=== PATIENT | female | born 1930 | race Caucasian/White ===

== ENCOUNTER → 2016-11-05 | Outpatient (CLI) | payer OTHER | LOC: RAD 10:07 | PROVIDERS: ATTEND Specialist | DX: Z12.31 Encounter for screening mammogram for malignant neoplasm of breast (principal) | CPT/HCPCS: 77067 ==

== ENCOUNTER → 2017-02-16 | Outpatient (CLI) | payer OTHER ==
[2017-02-16 08:55] LABS: BILIRUBIN,URINE NEGATIVE (NEGATIVE); BLOOD/HEMOGLOBIN,URINE 2+ (NEGATIVE); GLUCOSE, URINE NEGATIVE (NEGATIVE); KETONES,URINE NEGATIVE (NEGATIVE); LEUKOCYTE ESTERASE ,URINE 3+ (NEGATIVE); NITRITES,URINE POSITIVE (NEGATIVE); PROTEIN,URINE NEGATIVE (NEGATIVE); UROBILINOGEN,URINE NORMAL (NORMAL)
[2017-02-16 08:58] LABS: BASOPHILS % (AUTO) 0.7 % (0.2-1.0); EOSINOPHILS # (AUTO) 0.2 x10^3/uL (0.0-0.2); EOSINOPHILS % (AUTO) 2.2 % (0.9-2.9); HEMATOCRIT 34.5 % (36.0-47.0); HEMOGLOBIN 11.7 g/dL (12.0-16.0); LYMPHOCYTES % (AUTO) 14.5 % (21.0-51.0); MEAN CORPUSCULAR HEMOGLOBIN 31.9 pg (27.0-34.0); MEAN CORPUSCULAR VOLUME 93.8 fL (80.0-100.0); MEAN PLATELET VOLUME 8.4 fL (7.4-11.0); MONOCYTES # (AUTO) 0.4 x10^3/uL (0.3-0.8); MONOCYTES % (AUTO) 5.5 % (0.0-13.0); NEUTROPHILS # (AUTO) 5.5 x10^3/uL (2.2-4.8); NEUTROPHILS % (AUTO) 77.1 % (42.0-75.0); PLATELET COUNT 189 X10^3/uL (150.0-450.0); RED BLOOD COUNT 3.68 X10^6/uL (3.5-5.4); RED CELL DISTRIBUTION WIDTH 13.3 % (11.6-16.5); WHITE BLOOD COUNT 7.2 X10^3/uL (3.6-10.0)
[2017-02-16 09:14] LABS: ALANINE AMINOTRANSFERASE 26 Units/L (12-78); ALBUMIN 3.7 g/dL (3.4-5.0); ALKALINE PHOSPHATASE 48 Units/L (46-116); ASPARTATE AMINO TRANSFERASE 22 Units/L (15-37); BLOOD UREA NITROGEN 25 mg/dL (7-18); CALCIUM 9.3 mg/dL (8.5-10.1); CARBON DIOXIDE 31.6 mmol/L (21-32); CHLORIDE 103 mmol/L (98-107); CHOL/HDL RATIO 4.4 (0.0-5.0); CHOLESTEROL 192 mg/dL (0-200); CREATININE 1.05 mg/dL (0.55-1.02); GLUCOSE 94 mg/dL (65-99); HDL CHOLESTEROL 44 mg/dL (40-60); SODIUM 139 mmol/L (136-145); TOTAL PROTEIN 6.8 g/dL (6.4-8.2); TRIGLYCERIDES 117 mg/dL (0-150); eGFR BLACK RACES > 60 (>60); eGFR NON BLACK RACES 53 (>60)
[2017-02-16 09:42] LABS: AMORPHOUS SEDIMENT,UR 1+ /HPF (NEGATIVE); APPEARANCE,URINE HAZY (CLEAR); BACTERIA,URINE 1+ /HPF (NEGATIVE); COLOR,URINE YELLOW (YELLOW); SQUAMOUS EPITHELIAL CELL,UR RARE /HPF (NEGATIVE)
== END ==
LOC: LAB 08:25
PROVIDERS: ATTEND Family Medicine
DX: I10 Essential (primary) hypertension (principal); Z79.899 Other long term (current) drug therapy; B96.1 Klebsiella pneumoniae [K. pneumoniae] as the cause of diseases classified elsewhere
CPT/HCPCS: 36415; 80053; 80061; 81001; 85025; 87086; 87088; 87186

== ENCOUNTER → 2017-04-19 | Outpatient (CLI) | payer OTHER ==
[2017-04-19 11:17] LABS: BILIRUBIN,URINE NEGATIVE (NEGATIVE); BLOOD/HEMOGLOBIN,URINE 2+ (NEGATIVE); GLUCOSE, URINE NEGATIVE (NEGATIVE); KETONES,URINE NEGATIVE (NEGATIVE); LEUKOCYTE ESTERASE ,URINE 2+ (NEGATIVE); NITRITES,URINE POSITIVE (NEGATIVE); PROTEIN,URINE NEGATIVE (NEGATIVE); UROBILINOGEN,URINE NORMAL (NORMAL)
[2017-04-19 11:32] LABS: APPEARANCE,URINE HAZY (CLEAR); BACTERIA,URINE 1+ /HPF (NEGATIVE); COLOR,URINE YELLOW (YELLOW); RBC,URINE 0-3 /HPF (NEGATIVE); SQUAMOUS EPITHELIAL CELL,UR RARE /HPF (NEGATIVE)
== END ==
LOC: LAB 10:50
PROVIDERS: ATTEND Family Medicine
DX: N39.0 Urinary tract infection, site not specified (principal); B96.29 Other Escherichia coli [E. coli] as the cause of diseases classified elsewhere
CPT/HCPCS: 81001; 87086; 87088; 87186

== ENCOUNTER → 2017-05-19 | Outpatient (CLI) | payer OTHER ==
[2017-05-19 11:02] LABS: BILIRUBIN,URINE NEGATIVE (NEGATIVE); BLOOD/HEMOGLOBIN,URINE 1+ (NEGATIVE); GLUCOSE, URINE NEGATIVE (NEGATIVE); KETONES,URINE NEGATIVE (NEGATIVE); LEUKOCYTE ESTERASE ,URINE 2+ (NEGATIVE); NITRITES,URINE NEGATIVE (NEGATIVE); PROTEIN,URINE 1+ (NEGATIVE); UROBILINOGEN,URINE NORMAL (NORMAL)
[2017-05-19 11:14] LABS: APPEARANCE,URINE SLIGHTLY HAZY (CLEAR); BACTERIA,URINE TRACE /HPF (NEGATIVE); COLOR,URINE YELLOW (YELLOW); HYALINE CASTS, URINE FEW /LPF (NEGATIVE); RBC,URINE 0-3 /HPF (NEGATIVE); SQUAMOUS EPITHELIAL CELL,UR RARE /HPF (NEGATIVE)
== END ==
LOC: LAB 10:33
PROVIDERS: ATTEND Family Medicine
DX: N39.0 Urinary tract infection, site not specified (principal); B95.2 Enterococcus as the cause of diseases classified elsewhere
CPT/HCPCS: 81001; 87086; 87088; 87186

== ENCOUNTER → 2017-08-31 | Outpatient (CLI) | payer OTHER ==
[2017-08-31 12:08] LABS: BILIRUBIN,URINE NEGATIVE (NEGATIVE); BLOOD/HEMOGLOBIN,URINE 3+ (NEGATIVE); GLUCOSE, URINE NEGATIVE (NEGATIVE); KETONES,URINE NEGATIVE (NEGATIVE); LEUKOCYTE ESTERASE ,URINE NEGATIVE (NEGATIVE); NITRITES,URINE NEGATIVE (NEGATIVE); PROTEIN,URINE 1+ (NEGATIVE); UROBILINOGEN,URINE NORMAL (NORMAL)
[2017-08-31 12:14] LABS: APPEARANCE,URINE CLEAR (CLEAR); BACTERIA,URINE NEGATIVE /HPF (NEGATIVE); COLOR,URINE YELLOW (YELLOW); RBC,URINE 0-5 /HPF (NEGATIVE); SQUAMOUS EPITHELIAL CELL,UR RARE /HPF (NEGATIVE)
[2017-08-31 12:15] LABS: HYALINE CASTS, URINE RARE /LPF (NEGATIVE)
== END ==
LOC: LAB 11:39
PROVIDERS: ATTEND Family Medicine
DX: N39.0 Urinary tract infection, site not specified (principal)
CPT/HCPCS: 81001; 87086

== ENCOUNTER → 2017-09-22 | Outpatient (CLI) | payer OTHER ==
[2017-09-22 10:32] LABS: BASOPHILS % (AUTO) 0.5 % (0.2-1.0); EOSINOPHILS # (AUTO) 0.1 x10^3/uL (0.0-0.2); EOSINOPHILS % (AUTO) 1.1 % (0.9-2.9); HEMOGLOBIN 13.2 g/dL (12.0-16.0); LYMPHOCYTES # (AUTO) 2.3 X10^3/uL (1.3-2.9); LYMPHOCYTES % (AUTO) 24.9 % (21.0-51.0); MEAN CORPUSCULAR HEMOGLOBIN 33.5 pg (27.0-34.0); MEAN CORPUSCULAR HGB CONC 34.9 g/dL (33.0-35.0); MEAN CORPUSCULAR VOLUME 95.9 fL (80.0-100.0); MEAN PLATELET VOLUME 8.3 fL (7.4-11.0); MONOCYTES # (AUTO) 0.8 x10^3/uL (0.3-0.8); MONOCYTES % (AUTO) 8.5 % (0.0-13.0); PLATELET COUNT 236 X10^3/uL (150.0-450.0); RED BLOOD COUNT 3.96 X10^6/uL (3.5-5.4); RED CELL DISTRIBUTION WIDTH 12.5 % (11.6-16.5); WHITE BLOOD COUNT 9.2 X10^3/uL (3.6-10.0)
[2017-09-22 10:34] LABS: BILIRUBIN,URINE NEGATIVE (NEGATIVE); BLOOD/HEMOGLOBIN,URINE 2+ (NEGATIVE); GLUCOSE, URINE NEGATIVE (NEGATIVE); KETONES,URINE NEGATIVE (NEGATIVE); LEUKOCYTE ESTERASE ,URINE NEGATIVE (NEGATIVE); NITRITES,URINE NEGATIVE (NEGATIVE); PROTEIN,URINE NEGATIVE (NEGATIVE); UROBILINOGEN,URINE NORMAL (NORMAL)
[2017-09-22 10:45] LABS: APPEARANCE,URINE CLEAR (CLEAR); BACTERIA,URINE NEGATIVE /HPF (NEGATIVE); COLOR,URINE STRAW (YELLOW); SQUAMOUS EPITHELIAL CELL,UR RARE /HPF (NEGATIVE)
[2017-09-22 10:46] LABS: ALANINE AMINOTRANSFERASE 29 Units/L (12-78); ALBUMIN 3.9 g/dL (3.4-5.0); ALKALINE PHOSPHATASE 57 Units/L (46-116); ASPARTATE AMINO TRANSFERASE 18 Units/L (15-37); BLOOD UREA NITROGEN 19 mg/dL (7-18); CALCIUM 8.7 mg/dL (8.5-10.1); CARBON DIOXIDE 26.3 mmol/L (21-32); CHLORIDE 103 mmol/L (98-107); CREATININE 1.04 mg/dL (0.55-1.02); SODIUM 139 mmol/L (136-145); TOTAL PROTEIN 7.1 g/dL (6.4-8.2); eGFR BLACK RACES > 60 (>60); eGFR NON BLACK RACES 53 (>60)
== END ==
LOC: LAB 10:12
PROVIDERS: ATTEND Family Medicine
DX: I10 Essential (primary) hypertension (principal); Z79.899 Other long term (current) drug therapy
CPT/HCPCS: 36415; 80053; 81001; 85025

== ENCOUNTER → 2017-10-06 | Outpatient (CLI) | payer OTHER ==
--- NOTE | 2017-10-06 12:21 | RAD ---
HISTORY: Right hip pain. Stiffness. No history trauma given. Study: Right hip: Two views Comparison: None Findings: The pelvic ring is intact. [id number] degenerative changes noted in the sacroiliac joints. Th e pubic rami are intact. Moderate to moderately severe lumbar spondylosis is noted. Right hip shows mild acetabular spurring. The joint space is fairly well preserved. The femoral hea d contour and femoral neck are intact. Similar findings are noted on the left. IMPRESSION: 1. Mild degenerative change in the right hip. 2. No acute bony abnormalities are identified. Reported By:
== END | disposition home or self-care (01) | DRG 556 ==
LOC: RAD 10:31
PROVIDERS: ATTEND Family Medicine
DX: M25.551 Pain in right hip (principal); M16.11 Unilateral primary osteoarthritis, right hip
CPT/HCPCS: 73501

== ENCOUNTER 2019-01-25 12:31 | Inpatient (IN) ==
[2019-01-25 13:28] LABS: BASOPHILS % (AUTO) 0.4 % (0.2-1.0); BILIRUBIN,URINE NEGATIVE (NEGATIVE); BLOOD/HEMOGLOBIN,URINE 4+ (NEGATIVE); GLUCOSE, URINE NEGATIVE (NEGATIVE); HEMOGLOBIN 11.4 g/dL (12.0-16.0); KETONES,URINE NEGATIVE (NEGATIVE); LEUKOCYTE ESTERASE ,URINE 3+ (NEGATIVE); LYMPHOCYTES # (AUTO) 0.4 X10^3/uL (1.3-2.9); LYMPHOCYTES % (AUTO) 3.7 % (21.0-51.0); MEAN CORPUSCULAR HEMOGLOBIN 31.9 pg (27.0-34.0); MEAN CORPUSCULAR HGB CONC 34.4 g/dL (33.0-35.0); MEAN CORPUSCULAR VOLUME 92.7 fL (80.0-100.0); MEAN PLATELET VOLUME 8.1 fL (7.4-11.0); MONOCYTES % (AUTO) 8.6 % (0.0-13.0); NEUTROPHILS # (AUTO) 9.8 x10^3/uL (2.2-4.8); NEUTROPHILS % (AUTO) 87.3 % (42.0-75.0); NITRITES,URINE POSITIVE (NEGATIVE); PLATELET COUNT 147 X10^3/uL (150.0-450.0); PROTEIN,URINE 3+ (NEGATIVE); RED BLOOD COUNT 3.56 X10^6/uL (3.5-5.4); RED CELL DISTRIBUTION WIDTH 13.6 % (11.6-16.5); UROBILINOGEN,URINE NORMAL (NORMAL); WHITE BLOOD COUNT 11.2 X10^3/uL (3.6-10.0)
--- NOTE | 2019-01-25 13:31 | DR.GENAD ---
HPI Time Seen Time Seen by Provider: 01/25/19 13:00 PCP Primary Care Physician: DR. DAS Complaint/Symptoms Chief Complaint Doctors Comments: An 88 y/o female brought in by her daughter for evaluation for UTI. The daughter noted her to be confused more than usual since yesterday. She has a hx. of frequent/recurrent UTI and has a prophylactic antibiotic. The daughter doesn't know the name of this. Chief Complaint:: EMS OUT TO PT WITH WEAKNESS, UPON ARRIVAL TO ER PT IS UNABLE TO GIVE ACCOUNT OF HX,, PTS DAUGHTER STATES " SHE HAS HAD A UTI FOR MONTHS AND SHE HAS BEEN ON SEVERAL MEDICATIONS AND FOR THE PAST 2 WEEKS SHE BEEN BETTER " Nurses notes reviewed Nurses Notes Review: Yes Source History Provided: Patient and Family Member Timing Onset of Chief Complaint: 01/25/19 Came on: Gradually Duration How lon Duration: Weeks Modifying Factors Worsens:: nothing Improves:: nothing Associated Signs and Symptoms Associated Signs and Symptoms: confusion PMH PMH Past Medical History: Yes Past Medical History: Hypertension Past Surgical History: No Family History History of Family Medical Conditions: No Social History Does patient currently use any type of tobacco product: No Have you used tobacco products in the last 12 months: No Type of Tobacco Use: None Does any household member use tobacco: No Alcohol Use: None Do you use any recreational Drugs:: No Lives With: Family Lives Where: Home infectious screening In the last 2 months have you had wt loss of >10#?: NO Have you had fever, night sweats or hemotysis?: No Have you traveled outside the country in the last 6 months?: No Isolation: Standard ROS Review of Systems Constitutional: No Symptoms Reported Eyes: No Symptoms Reported ENTM: No Symptoms Reported Respiratoy: No Symptoms Reported Cardiovascular: No Symptoms Reported Gastrointestinal/Abdominal: No Symptoms Reported Genitourinary: No Symptoms Reported Neurological: Other (confusion) Musculoskeletal: No Symptoms Reported Integumentary: No Symptoms Reported Hematologic/Lymphatic: No Symptoms Reported Endocrine: No Symptoms Reported Psychiatric: No Symptoms Reported PE Vital Signs Vitals: Temperature 99.0 F Pulse Rate 77 Respiratory Rate 20 Blood Pressure 147/67 O2 Sat by Pulse Oximetry 94 General Limitations: No Limitations General Appearance: Alert and In No Apparent Distress Head Head Exam: Normal Inspection, Atraumatic and Normocephalic Eyes Eye exam: Normal Appearance and EOMI ENT ENT Exam: Normal Oropharynx and Mucous Membranes Moist Neck Neck Exam: Normal Inspection, Full ROM and Trachea Midline Chest Chest Inspection: Normal Inspection and Symmetric Chest Wall Rise Respiratory Respiratory Exam: Normal Lung Sounds Bilat Cardiovascular Cardiovascular Exam: Regular Rate, Normal Rhythm, +S1 and +S2 Abdominal Exam Abdominal Exam: Normal Inspection, Normal Bowel Sounds and Soft Extremities Extremities Exam: Normal Inspection Back Back Exam: Normal Inspection Neurologic Neurological Exam: Alert and Other (oriented to self and family. Her conversation is mostly off topic. ) Psychiatric Psychiatric Exam: Normal Affect and Normal Mood Skin Skin Exam: Dry and Normal Color COURSE Reevaluation 1st: Unchanged Education/Counseling Education/Counseling: Patient, Family, Education and Counseling Educated On: Treatment, Diagnosis, Prognosis and Needs for Follow Up ROR Labs Reviewed Laboratory Results Reviewed?: Yes Result Diagrams: 01/25/19 13:19 01/25/19 13:19 Laboratory: WBC 11.2 X10^3/uL (3.6-10.0) H 01/25/19 13:19 RBC 3.56 X10^6/uL (3.5-5.4) 01/25/19 13:19 Hgb 11.4 g/dL (12.0-16.0) L 01/25/19 13:19 Hct 33.0 % (36.0-47.0) L 01/25/19 13:19 MCV 92.7 fL (80.0-100.0) 01/25/19 13:19 MCH 31.9 pg (27.0-34.0) 01/25/19 13:19 MCHC 34.4 g/dL (33.0-35.0) 01/25/19 13:19 RDW 13.6 % (11.6-16.5) 01/25/19 13:19 Plt Count 147 X10^3/uL (150.0-450.0) L 01/25/19 13:19 MPV 8.1 fL (7.4-11.0) 01/25/19 13:19 Neut % (Auto) 87.3 % (42.0-75.0) H 01/25/19 13:19 Lymph % (Auto) 3.7 % (21.0-51.0) L 01/25/19 13:19 [place] % (Auto) 8.6 % (0.0-13.0) 01/25/19 13:19 Eos % (Auto) 0.0 % (0.9-2.9) L 01/25/19 13:19 Baso % (Auto) 0.4 % (0.2-1.0) 01/25/19 13:19 Neut # (Auto) 9.8 x10^3/uL (2.2-4.8) H 01/25/19 13:19 Lymph # (Auto) 0.4 X10^3/uL (1.3-2.9) L 01/25/19 13:19 [place] # (Auto) 1.0 x10^3/uL (0.3-0.8) H 01/25/19 13:19 Eos # (Auto) 0.0 x10^3/uL (0.0-0.2) 01/25/19 13:19 Baso # (Auto) 0.0 X10^3/uL (0.0-0.1) 01/25/19 13:19 Absolute Nucleated RBC 0.0 /100WBC 01/25/19 13:19 Sodium 133 mmol/L (136-145) L 01/25/19 13:19 Corrected Sodium 133 mmol/L (136-145) L 01/25/19 13:19 Potassium 3.6 mmol/L (3.5-5.1) 01/25/19 13:19 Chloride 97 mmol/L (98-107) L 01/25/19 13:19 Carbon Dioxide 26.7 mmol/L (21-32) 01/25/19 13:19 BUN 19 mg/dL (7-18) H 01/25/19 13:19 Creatinine 0.96 mg/dL (0.55-1.02) 01/25/19 13:19 Est GFR (MDRD) Af Amer > 60 (>60) 01/25/19 13:19 Est GFR (MDRD) Non-Af 58 (>60) L 01/25/19 13:19 Glucose 115 mg/dL (65-99) H 01/25/19 13:19 Calcium 9.1 mg/dL (8.5-10.1) 01/25/19 13:19 Corrected Calcium 9.8 mg/dL (8.5-10.1) 01/25/19 13:19 Total Bilirubin 0.80 mg/dL (0.2-1.0) 01/25/19 13:19 AST 18 Units/L (15-37) 01/25/19 13:19 ALT 17 Units/L (12-78) 01/25/19 13:19 Alkaline Phosphatase 61 Units/L (46-116) 01/25/19 13:19 Total Protein 6.5 g/dL (6.4-8.2) 01/25/19 13:19 Albumin 3.1 g/dL (3.4-5.0) L 01/25/19 13:19 Globulin 3.4 g/dL (2.5-4.5) 01/25/19 13:19 Albumin/Globulin Ratio 0.9 Ratio (1.1-2.1) L 01/25/19 13:19 Specimen Type Catherized urine 01/25/19 13:19 Urine Color Yellow (YELLOW) 01/25/19 13:19 Urine Appearance Cloudy (CLEAR) 01/25/19 13:19 Urine pH 6.0 (5.0 - 8.0) 01/25/19 13:19 Ur Specific [place] 1.010 (1.000-1.030) 01/25/19 13:19 Urine Protein 3+ (NEGATIVE) 01/25/19 13:19 Urine Glucose (UA) Negative (NEGATIVE) 01/25/19 13:19 Urine Ketones Negative (NEGATIVE) 01/25/19 13:19 Urine Occult Blood 4+ (NEGATIVE) 01/25/19 13:19 Urine Nitrite Positive (NEGATIVE) 01/25/19 13:19 Urine Bilirubin Negative (NEGATIVE) 01/25/19 13:19 Urine Urobilinogen Normal (NORMAL) 01/25/19 13:19 Ur Leukocyte Esterase 3+ (NEGATIVE) 01/25/19 13:19 Urine RBC 10-20 /HPF (NONE SEEN) 01/25/19 13:19 Urine WBC Tntc /HPF (NONE SEEN) 01/25/19 13:19 Ur Squamous Epith Cells Rare /HPF (NEGATIVE) 01/25/19 13:19 Amorphous Sediment 1+ /HPF (NEGATIVE) 01/25/19 13:19 Urine Bacteria 2+ /HPF (NEGATIVE) 01/25/19 13:19 Ur Culture Indicated? Yes/culture set up 01/25/19 13:19 Opioid Opioid Risk Tool Total: 0 Total Score Risk Category: Low Risk Copyright: Joe HEARD predicting aberrant behaviors Diagnosis Discharge Problem: Cystitis, Cystitis without hematuria Altered mental status Qualifiers: Altered mental status type: delirium Qualified Code(s): R41.0 - Disorientation, unspecified Instructions Forms: Excuse From Work
[2019-01-25 13:34] LABS: AMORPHOUS SEDIMENT,UR 1+ /HPF (NEGATIVE); APPEARANCE,URINE CLOUDY (CLEAR); BACTERIA,URINE 2+ /HPF (NEGATIVE); COLOR,URINE YELLOW (YELLOW); SQUAMOUS EPITHELIAL CELL,UR RARE /HPF (NEGATIVE)
[2019-01-25 13:37] LABS: ALANINE AMINOTRANSFERASE 17 Units/L (12-78); ALBUMIN 3.1 g/dL (3.4-5.0); ALKALINE PHOSPHATASE 61 Units/L (46-116); ASPARTATE AMINO TRANSFERASE 18 Units/L (15-37); BLOOD UREA NITROGEN 19 mg/dL (7-18); CALCIUM 9.1 mg/dL (8.5-10.1); CARBON DIOXIDE 26.7 mmol/L (21-32); CHLORIDE 97 mmol/L (98-107); COR CA(FOR HYPOALB) 9.8 mg/dL (8.5-10.1); COR NA(FOR HYPERGLY) 133 mmol/L (136-145); CREATININE 0.96 mg/dL (0.55-1.02); SODIUM 133 mmol/L (136-145); TOTAL PROTEIN 6.5 g/dL (6.4-8.2); eGFR NON BLACK RACES 58 (>60)
[2019-01-25] MEDS ORDERED: ROCEPHIN VIAL 1 GRAM IVP ONE (15:00)
[2019-01-25] MEDS: ROCEPHIN VIAL 1 GRAM IVP SCH (15:02)
[2019-01-25] MEDS ORDERED: ROCEPHIN VIAL 1 GRAM ONE (15:16)
[2019-01-25] MEDS ORDERED: NS 1000 ML 1,000 ML IV SCH (16:00)
[2019-01-25] MEDS: NS 1000 ML 1,000 ML IV SCH (16:53)
[2019-01-25] MEDS: PYRIDIUM PO SCH (17:02)
[2019-01-25] MEDS ORDERED: POTASSIUM CHL 40 MEQ/NS 0.45% 500 ML IV PRN (17:12)
[2019-01-25] MEDS ORDERED: MICRO K EXTEN CAP 10 MEQ PO PRN (17:12)
[2019-01-25] MEDS ORDERED: POTASSIUM CHLORIDE LIQ 20 MEQ UDC PO PRN (17:12)
[2019-01-25] MEDS ORDERED: K-RIDER 10 MEQ/NS 100 ML 10 MEQ/100 ML BAG IV PRN (17:12)
[2019-01-25] MEDS ORDERED: KLOR-CON PO PRN (17:12)
[2019-01-25] MEDS ORDERED: POTASSIUM CHL 60 MEQ/NS 0.45% 500 ML IV PRN (17:12)
[2019-01-25] MEDS ORDERED: K-DUR TAB 20 MEQ PO PRN (17:12)
[2019-01-25] MEDS ORDERED: ZOFRAN INJ 4 MG VIAL IVP PRN (17:37)
[2019-01-25] MEDS ORDERED: ZOFRAN INJ 4 MG VIAL ONE (17:39)
--- NOTE | 2019-01-25 18:24 | RAD ---
HISTORY: Confusion, weakness Study: Single view chest Comparison: 11/23/2018 Findings: No infiltrate, effusion or pneumothorax identified. The cardiac and mediastinal contours are within normal limits. The soft tissues are unremarkable. IMPRESSION: 1. No acute cardiopulmonary abnormality. Reported By:
--- NOTE | 2019-01-25 18:30 | DR.H&P ---
H&P - History & Physical for Day of: H&P Date: 01/25/19 - Chief Complaint Chief Complaint: weakness, UTI, confusion - History of Present Illness History of Present Illness: An 88 y/o female brought in by her daughter for evaluation for UTI. The daughter noted her to be confused more than usual since yesterday. She has a hx. of frequent/recurrent UTI and has a prophylactic antibiotic. The daughter doesn't know the name of this. Wbc 11.2 on admission. Pt family reports she has had fever with this episode and N/V. - Past Medical History Past Medical History: Hypertension Additional Medical History: chronic UTIs - Past Surgical History Surgical History: Hysterectomy, Tonsillectomy - Social History Does patient currently use any type of tobacco product: No Have you used tobacco products in the last 12 months: No Type of Tobacco Use: None Does any household member use tobacco: No Alcohol Use: None - Medications Home Medications: No Known Drug Allergies Allergy (Verified 01/25/19 12:50) CONTINUE taking the following medications methenamine hippurate 1 g PO BID 01/25/19 [History] - Review of Systems Constitutional: Fever, Chills, Weakness, Malaise Eyes: No Symptoms Reported ENT: No Symptoms Reported Respiratory: No Symptoms Reported Cardiovascular: No Symptoms Reported Gastrointestinal: Nausea, Vomiting Genitourinary: Dysuria, Frequency Musculoskeletal: No Symptoms Reported Skin: No Symptoms Reported Neurological: No Symptoms Reported - Physical Exam Vital Signs: Temperature 98.3 F Pulse Rate [Right Brachial] 112 Pulse Rate 68 Respiratory Rate 20 Blood Pressure [Right Arm] 117/68 Blood Pressure [Left Arm] 154/67 Blood Pressure 135/60 O2 Sat by Pulse Oximetry 97 Oriented: Normal Eyes: Normal Ear: Normal Nose: Normal Throat: Normal Respiratory: Clear Throughout Cardiovascular: Normal : Normal Auscultation: Bowel Sounds: Normal Palpation: Normal Tenderness: Suprapubic, Mild Skin: Normal Musculoskeletal: Back:Lumbar Psychiatric: Anxiety Affect: Anxious Speech Pattern: Clear, Appropriate - Assessment/Plan (1) UTI (urinary tract infection) Status: Acute (2) Altered mental status Qualifiers: Altered mental status type: delirium Qualified Code(s): R41.0 - Disorientation, unspecified Status: Acute Plan: ADMIT, ADMISSION LABS CBC CMP UA. UC AND BC. IV ATBX THERAPY, GENTLE IV HYDRATION. VERIFY HOME MEDICATION, CXR ON ADMISSION (3) Cystitis Status: Acute - Allergies Allergies/Adverse Reactions: Allergies Allergy/AdvReac Type Severity Reaction Status Date / Time No Known Drug Allergies Allergy Verified 01/25/19 12:50
[2019-01-25 18:46] VITALS: BMI 22.8
[2019-01-25] MEDS ORDERED: RESTORIL CAP 15 MG PO PRN (20:55)
[2019-01-25] MEDS ORDERED: TYLENOL 325 MG TAB PO PRN (20:55)
[2019-01-25] MEDS: MAGNESIUM SULFATE 1 GRAM/100 mL PREMIX 1 GM/100 ML BAG IV PRN (21:27)
[2019-01-26] MEDS: MAGNESIUM SULFATE 1 GRAM/100 mL PREMIX 1 GM/100 ML BAG IV PRN (00:01)
[2019-01-26] MEDS: ROCEPHIN VIAL 1 GRAM IVP SCH ×4 (00:01→21:16)
[2019-01-26] MEDS: PYRIDIUM PO SCH ×3 (06:12→17:56)
[2019-01-26] MEDS: NS 1000 ML 1,000 ML IV SCH ×2 (06:12→21:26)
[2019-01-26 06:15] LABS: BASOPHILS % (AUTO) 0.3 % (0.2-1.0); EOSINOPHILS % (AUTO) 0.1 % (0.9-2.9); HEMATOCRIT 32.7 % (36.0-47.0); HEMOGLOBIN 11.6 g/dL (12.0-16.0); LYMPHOCYTES # (AUTO) 0.5 X10^3/uL (1.3-2.9); LYMPHOCYTES % (AUTO) 5.4 % (21.0-51.0); MEAN CORPUSCULAR HEMOGLOBIN 32.8 pg (27.0-34.0); MEAN CORPUSCULAR HGB CONC 35.4 g/dL (33.0-35.0); MEAN CORPUSCULAR VOLUME 92.6 fL (80.0-100.0); MEAN PLATELET VOLUME 8.1 fL (7.4-11.0); MONOCYTES # (AUTO) 0.8 x10^3/uL (0.3-0.8); MONOCYTES % (AUTO) 8.1 % (0.0-13.0); NEUTROPHILS # (AUTO) 8.5 x10^3/uL (2.2-4.8); NEUTROPHILS % (AUTO) 86.1 % (42.0-75.0); PLATELET COUNT 132 X10^3/uL (150.0-450.0); RED BLOOD COUNT 3.53 X10^6/uL (3.5-5.4); RED CELL DISTRIBUTION WIDTH 13.7 % (11.6-16.5); WHITE BLOOD COUNT 9.8 X10^3/uL (3.6-10.0)
[2019-01-26 06:49] LABS: ALANINE AMINOTRANSFERASE 16 Units/L (12-78); ALBUMIN 2.9 g/dL (3.4-5.0); ALKALINE PHOSPHATASE 61 Units/L (46-116); ASPARTATE AMINO TRANSFERASE 17 Units/L (15-37); BLOOD UREA NITROGEN 21 mg/dL (7-18); CALCIUM 8.7 mg/dL (8.5-10.1); CARBON DIOXIDE 27.1 mmol/L (21-32); CHLORIDE 97 mmol/L (98-107); COR CA(FOR HYPOALB) 9.6 mg/dL (8.5-10.1); CREATININE 1.23 mg/dL (0.55-1.02); MAGNESIUM 2.4 mg/dL (1.7-2.9); SODIUM 134 mmol/L (136-145); TOTAL PROTEIN 6.4 g/dL (6.4-8.2); eGFR NON BLACK RACES 44 (>60)
--- NOTE | 2019-01-26 18:07 | PCM.PROG ---
Progress Note - Progress Note for Day of Date of Exam: 01/26/19 - Subjective Subjective: 88 WF ER ADMISSION WITH CO CONFUSION PER FAMILY, WEAKNESS AND UTI. PT HAD UC COLLECTED ON AT ADMISSION WITH + GRAM -RODS. PT IS CURRENTLY ON IV ROCEPHIN. PT HAD EPISODE OF N/V X2 DURING THE NIGHT. PT DENIES ANY N/V THIS AM. PT DID TOLERATE BREAKFAST WELL AND IS MORE AWAKE AND ALERT THIS AM STATIND SHE DOES NOT REMEMBER COMING IN ER "BEING SO SICK" - Past Medical Family Social History Past Med/Fam/Surg Hx: No changes since H&P Allergies: Allergies No Known Drug Allergies Allergy (Verified 01/25/19 12:50) - Review of Systems ROS: No change since H&P - Vital Signs and I&O's Vital Signs: Temperature 98.6 F Pulse Rate [Right Brachial] 84 Pulse Rate 68 Respiratory Rate 20 Blood Pressure [Right Calf] 114/53 Blood Pressure [Right Arm] 135/64 Blood Pressure [Left Arm] 110/55 Blood Pressure 135/60 O2 Sat by Pulse Oximetry 96 Intake and Output: Intake & Output 01/24/19 01/25/19 01/26/19 01/27/19 11:59 11:59 11:59 11:59 Intake Total 620 / 620 600 / 600 Balance 620 / 620 600 / 600 - Physical Exam Oriented: Normal Eyes: Normal Ear: Normal Nose: Normal Throat: Normal Cardiovascular: Normal : Normal Auscultation: Bowel Sounds: Normal Tenderness: Suprapubic, Mild Skin: Normal Musculoskeletal: Back:Lumbar Psychiatric: Anxiety Affect: Anxious Speech Pattern: Clear, Appropriate - Laboratory and Diagnostics Result Diagrams: 01/26/19 06:03 01/26/19 06:03 Labs: 01/25/19 13:19 Urine,Catheterized Urine Culture - Preliminary Laboratory WBC 9.8 X10^3/uL (3.6-10.0) 01/26/19 06:03 RBC 3.53 X10^6/uL (3.5-5.4) 01/26/19 06:03 Hgb 11.6 g/dL (12.0-16.0) L 01/26/19 06:03 Hct 32.7 % (36.0-47.0) L 01/26/19 06:03 MCV 92.6 fL (80.0-100.0) 01/26/19 06:03 MCH 32.8 pg (27.0-34.0) 01/26/19 06:03 MCHC 35.4 g/dL (33.0-35.0) H 01/26/19 06:03 RDW 13.7 % (11.6-16.5) 01/26/19 06:03 Plt Count 132 X10^3/uL (150.0-450.0) L 01/26/19 06:03 MPV 8.1 fL (7.4-11.0) 01/26/19 06:03 Neut % (Auto) 86.1 % (42.0-75.0) H 01/26/19 06:03 Lymph % (Auto) 5.4 % (21.0-51.0) L 01/26/19 06:03 [place] % (Auto) 8.1 % (0.0-13.0) 01/26/19 06:03 Eos % (Auto) 0.1 % (0.9-2.9) L 01/26/19 06:03 Baso % (Auto) 0.3 % (0.2-1.0) 01/26/19 06:03 Neut # (Auto) 8.5 x10^3/uL (2.2-4.8) H 01/26/19 06:03 Lymph # (Auto) 0.5 X10^3/uL (1.3-2.9) L 01/26/19 06:03 [place] # (Auto) 0.8 x10^3/uL (0.3-0.8) 01/26/19 06:03 Eos # (Auto) 0.0 x10^3/uL (0.0-0.2) 01/26/19 06:03 Baso # (Auto) 0.0 X10^3/uL (0.0-0.1) 01/26/19 06:03 Absolute Nucleated RBC 0.0 /100WBC 01/26/19 06:03 Sodium 134 mmol/L (136-145) L 01/26/19 06:03 Corrected Sodium TNP 01/26/19 06:03 Potassium 4.0 mmol/L (3.5-5.1) 01/26/19 06:03 Chloride 97 mmol/L (98-107) L 01/26/19 06:03 Carbon Dioxide 27.1 mmol/L (21-32) 01/26/19 06:03 BUN 21 mg/dL (7-18) H 01/26/19 06:03 Creatinine 1.23 mg/dL (0.55-1.02) H 01/26/19 06:03 Est GFR (MDRD) Af Amer 53 (>60) L 01/26/19 06:03 Est GFR (MDRD) Non-Af 44 (>60) L 01/26/19 06:03 Glucose 103 mg/dL (65-99) H 01/26/19 06:03 Calcium 8.7 mg/dL (8.5-10.1) 01/26/19 06:03 Corrected Calcium 9.6 mg/dL (8.5-10.1) 01/26/19 06:03 Magnesium 2.4 mg/dL (1.7-2.9) 01/26/19 06:03 Total Bilirubin 0.50 mg/dL (0.2-1.0) 01/26/19 06:03 AST 17 Units/L (15-37) 01/26/19 06:03 ALT 16 Units/L (12-78) 01/26/19 06:03 Alkaline Phosphatase 61 Units/L (46-116) 01/26/19 06:03 Total Protein 6.4 g/dL (6.4-8.2) 01/26/19 06:03 Albumin 2.9 g/dL (3.4-5.0) L 01/26/19 06:03 Globulin 3.5 g/dL (2.5-4.5) 01/26/19 06:03 Albumin/Globulin Ratio 0.8 Ratio (1.1-2.1) L 01/26/19 06:03 Specimen Type Catherized urine 01/25/19 13:19 Urine Color Yellow (YELLOW) 01/25/19 13:19 Urine Appearance Cloudy (CLEAR) 01/25/19 13:19 Urine pH 6.0 (5.0 - 8.0) 01/25/19 13:19 Ur Specific [place] 1.010 (1.000-1.030) 01/25/19 13:19 Urine Protein 3+ (NEGATIVE) 01/25/19 13:19 Urine Glucose (UA) Negative (NEGATIVE) 01/25/19 13:19 Urine Ketones Negative (NEGATIVE) 01/25/19 13:19 Urine Occult Blood 4+ (NEGATIVE) 01/25/19 13:19 Urine Nitrite Positive (NEGATIVE) 01/25/19 13:19 Urine Bilirubin Negative (NEGATIVE) 01/25/19 13:19 Urine Urobilinogen Normal (NORMAL) 01/25/19 13:19 Ur Leukocyte Esterase 3+ (NEGATIVE) 01/25/19 13:19 Urine RBC 10-20 /HPF (NONE SEEN) 01/25/19 13:19 Urine WBC Tntc /HPF (NONE SEEN) 01/25/19 13:19 Ur Squamous Epith Cells Rare /HPF (NEGATIVE) 01/25/19 13:19 Amorphous Sediment 1+ /HPF (NEGATIVE) 01/25/19 13:19 Urine Bacteria 2+ /HPF (NEGATIVE) 01/25/19 13:19 Ur Culture Indicated? Yes/culture set up 01/25/19 13:19 - Plan (1) Altered mental status Status: Acute Qualifiers: Altered mental status type: delirium Qualified Code(s): R41.0 - Disorientation, unspecified Plan: AM LABS CBC CMP. UC AND BC COLLECTED ON ADMISSION. IV ATBX THERAPY, GENTLE IV HYDRATION. VERIFY HOME MEDICATION, CXR ON ADMISSION (2) UTI (urinary tract infection) Status: Acute (3) Cystitis Status: Acute
[2019-01-26] MEDS: HIPREX PO SCH (21:25)
[2019-01-27 05:45] LABS: BASOPHILS % (AUTO) 0.4 % (0.2-1.0); EOSINOPHILS # (AUTO) 0.1 x10^3/uL (0.0-0.2); EOSINOPHILS % (AUTO) 1.1 % (0.9-2.9); HEMATOCRIT 28.6 % (36.0-47.0); LYMPHOCYTES # (AUTO) 0.7 X10^3/uL (1.3-2.9); LYMPHOCYTES % (AUTO) 13.7 % (21.0-51.0); MEAN CORPUSCULAR HEMOGLOBIN 32.9 pg (27.0-34.0); MEAN CORPUSCULAR HGB CONC 35.1 g/dL (33.0-35.0); MEAN CORPUSCULAR VOLUME 93.6 fL (80.0-100.0); MEAN PLATELET VOLUME 9.2 fL (7.4-11.0); MONOCYTES # (AUTO) 0.6 x10^3/uL (0.3-0.8); MONOCYTES % (AUTO) 10.8 % (0.0-13.0); NEUTROPHILS # (AUTO) 3.9 x10^3/uL (2.2-4.8); PLATELET COUNT 137 X10^3/uL (150.0-450.0); RED BLOOD COUNT 3.05 X10^6/uL (3.5-5.4); RED CELL DISTRIBUTION WIDTH 13.5 % (11.6-16.5); WHITE BLOOD COUNT 5.3 X10^3/uL (3.6-10.0)
[2019-01-27 06:03] LABS: ALANINE AMINOTRANSFERASE 13 Units/L (12-78); ALBUMIN 2.6 g/dL (3.4-5.0); ALKALINE PHOSPHATASE 56 Units/L (46-116); ASPARTATE AMINO TRANSFERASE 19 Units/L (15-37); BLOOD UREA NITROGEN 17 mg/dL (7-18); CHLORIDE 100 mmol/L (98-107); COR CA(FOR HYPOALB) 9.1 mg/dL (8.5-10.1); CREATININE 1.09 mg/dL (0.55-1.02); SODIUM 134 mmol/L (136-145); TOTAL PROTEIN 5.9 g/dL (6.4-8.2); eGFR NON BLACK RACES 50 (>60)
[2019-01-27] MEDS: PYRIDIUM PO SCH ×3 (06:18→18:15)
[2019-01-27] MEDS: HIPREX PO SCH ×2 (09:29→21:39)
[2019-01-27] MEDS: ROCEPHIN VIAL 1 GRAM IVP SCH ×2 (09:39→21:40)
[2019-01-27] MEDS: CIPRO IV 400 MG PREMIX* 400 MG/200 ML IV.SOLN. IV SCH ×2 (09:41→21:40)
[2019-01-27] MEDS: NS 1000 ML 1,000 ML IV SCH ×2 (11:19→11:54)
--- NOTE | 2019-01-27 16:41 | PCM.PROG ---
Progress Note - Progress Note for Day of Date of Exam: 01/27/19 - Subjective Subjective: 88 WF ER ADMISSION WITH CO CONFUSION PER FAMILY, WEAKNESS AND UTI. PT HAD UC COLLECTED ON AT ADMISSION WITH + GRAM -RODS, CONFIRMED ECOLI. PT IS CURRENTLY ON IV ROCEPHIN WHICH IS SENSATIVE, STARTED ON IV CIPRO. PT CONTINUES TO FEEL "A LITTLE WEAK" DAUGHTER CONCERNED PT HAS FAILED OUTPT PO THERAPY X 3 ROUND OF ORAL ATBX. WILL TRIAL ADDED IV CIRPO. DISSCUSSED FUTURE UROLOGY REFERRAL DUE TO CHRONIC UTIS - Past Medical Family Social History Past Med/Fam/Surg Hx: No changes since H&P Allergies: Allergies No Known Drug Allergies Allergy (Verified 01/25/19 12:50) - Review of Systems ROS: No change since H&P - Vital Signs and I&O's Vital Signs: Temperature 97.9 F Pulse Rate [Right Brachial] 56 Pulse Rate 68 Respiratory Rate 20 Blood Pressure [Right Calf] 142/64 Blood Pressure [Right Arm] 135/64 Blood Pressure [Left Arm] 136/63 Blood Pressure 135/60 O2 Sat by Pulse Oximetry 97 Intake and Output: Intake & Output 01/25/19 01/26/19 01/27/19 01/28/19 11:59 11:59 11:59 11:59 Intake Total 620 / 620 1820 / 1820 680 / 680 Balance 620 / 620 1820 / 1820 680 / 680 - Physical Exam Oriented: Normal Eyes: Normal Ear: Normal Nose: Normal Throat: Normal Respiratory: Normal Cardiovascular: Normal : Normal Auscultation: Bowel Sounds: Normal Tenderness: Suprapubic, Mild Skin: Normal Musculoskeletal: Back:Lumbar Psychiatric: Anxiety Affect: Anxious Speech Pattern: Clear, Appropriate - Laboratory and Diagnostics Result Diagrams: 01/27/19 05:23 01/27/19 05:23 Labs: 01/25/19 16:09 Blood Blood Culture - Preliminary 01/25/19 16:02 Blood Blood Culture - Preliminary 01/25/19 13:19 Urine,Catheterized Urine Culture - Final Escherichia Coli Laboratory WBC 5.3 X10^3/uL (3.6-10.0) 01/27/19 05:23 RBC 3.05 X10^6/uL (3.5-5.4) L 01/27/19 05:23 Hgb 10.0 g/dL (12.0-16.0) L 01/27/19 05:23 Hct 28.6 % (36.0-47.0) L 01/27/19 05:23 MCV 93.6 fL (80.0-100.0) 01/27/19 05:23 MCH 32.9 pg (27.0-34.0) 01/27/19 05:23 MCHC 35.1 g/dL (33.0-35.0) H 01/27/19 05:23 RDW 13.5 % (11.6-16.5) 01/27/19 05:23 Plt Count 137 X10^3/uL (150.0-450.0) L 01/27/19 05:23 MPV 9.2 fL (7.4-11.0) 01/27/19 05:23 Neut % (Auto) 74.0 % (42.0-75.0) 01/27/19 05:23 Lymph % (Auto) 13.7 % (21.0-51.0) L 01/27/19 05:23 [place] % (Auto) 10.8 % (0.0-13.0) 01/27/19 05:23 Eos % (Auto) 1.1 % (0.9-2.9) 01/27/19 05:23 Baso % (Auto) 0.4 % (0.2-1.0) 01/27/19 05:23 Neut # (Auto) 3.9 x10^3/uL (2.2-4.8) 01/27/19 05:23 Lymph # (Auto) 0.7 X10^3/uL (1.3-2.9) L 01/27/19 05:23 [place] # (Auto) 0.6 x10^3/uL (0.3-0.8) 01/27/19 05:23 Eos # (Auto) 0.1 x10^3/uL (0.0-0.2) 01/27/19 05:23 Baso # (Auto) 0.0 X10^3/uL (0.0-0.1) 01/27/19 05:23 Absolute Nucleated RBC 0.0 /100WBC 01/27/19 05:23 Sodium 134 mmol/L (136-145) L 01/27/19 05:23 Corrected Sodium TNP 01/27/19 05:23 Potassium 3.7 mmol/L (3.5-5.1) 01/27/19 05:23 Chloride 100 mmol/L (98-107) 01/27/19 05:23 Carbon Dioxide 25.0 mmol/L (21-32) 01/27/19 05:23 BUN 17 mg/dL (7-18) 01/27/19 05:23 Creatinine 1.09 mg/dL (0.55-1.02) H 01/27/19 05:23 Est GFR (MDRD) Af Amer > 60 (>60) 01/27/19 05:23 Est GFR (MDRD) Non-Af 50 (>60) L 01/27/19 05:23 Glucose 101 mg/dL (65-99) H 01/27/19 05:23 Calcium 8.0 mg/dL (8.5-10.1) L 01/27/19 05:23 Corrected Calcium 9.1 mg/dL (8.5-10.1) 01/27/19 05:23 Magnesium 2.4 mg/dL (1.7-2.9) 01/26/19 06:03 Total Bilirubin 0.30 mg/dL (0.2-1.0) 01/27/19 05:23 AST 19 Units/L (15-37) 01/27/19 05:23 ALT 13 Units/L (12-78) 01/27/19 05:23 Alkaline Phosphatase 56 Units/L (46-116) 01/27/19 05:23 Total Protein 5.9 g/dL (6.4-8.2) L 01/27/19 05:23 Albumin 2.6 g/dL (3.4-5.0) L 01/27/19 05:23 Globulin 3.3 g/dL (2.5-4.5) 01/27/19 05:23 Albumin/Globulin Ratio 0.8 Ratio (1.1-2.1) L 01/27/19 05:23 Specimen Type Catherized urine 01/25/19 13:19 Urine Color Yellow (YELLOW) 01/25/19 13:19 Urine Appearance Cloudy (CLEAR) 01/25/19 13:19 Urine pH 6.0 (5.0 - 8.0) 01/25/19 13:19 Ur Specific [place] 1.010 (1.000-1.030) 01/25/19 13:19 Urine Protein 3+ (NEGATIVE) 01/25/19 13:19 Urine Glucose (UA) Negative (NEGATIVE) 01/25/19 13:19 Urine Ketones Negative (NEGATIVE) 01/25/19 13:19 Urine Occult Blood 4+ (NEGATIVE) 01/25/19 13:19 Urine Nitrite Positive (NEGATIVE) 01/25/19 13:19 Urine Bilirubin Negative (NEGATIVE) 01/25/19 13:19 Urine Urobilinogen Normal (NORMAL) 01/25/19 13:19 Ur Leukocyte Esterase 3+ (NEGATIVE) 01/25/19 13:19 Urine RBC 10-20 /HPF (NONE SEEN) 01/25/19 13:19 Urine WBC Tntc /HPF (NONE SEEN) 01/25/19 13:19 Ur Squamous Epith Cells Rare /HPF (NEGATIVE) 01/25/19 13:19 Amorphous Sediment 1+ /HPF (NEGATIVE) 01/25/19 13:19 Urine Bacteria 2+ /HPF (NEGATIVE) 01/25/19 13:19 Ur Culture Indicated? Yes/culture set up 01/25/19 13:19 - Plan (1) UTI (urinary tract infection) Status: Acute Plan: ECOLI, CONTINUE IV ROCEPHIN AND ADDED IV CIPRO THERAPY. ENCOURAGED ORAL HYDRATION (2) Altered mental status Status: Acute Qualifiers: Altered mental status type: delirium Qualified Code(s): R41.0 - Disorientation, unspecified Plan: AM LABS CBC CMP. UC AND BC COLLECTED ON ADMISSION. IV ATBX THERAPY, GENTLE IV HYDRATION. VERIFY HOME MEDICATION, CXR ON ADMISSION (3) Cystitis Status: Acute
[2019-01-28] MEDS: NS 1000 ML 1,000 ML IV SCH (02:32)
[2019-01-28] MEDS ORDERED: PYRIDIUM PO ONE (05:35)
[2019-01-28] MEDS: PYRIDIUM PO SCH (06:20)
[2019-01-28 06:36] LABS: BASOPHILS % (AUTO) 0.5 % (0.2-1.0); EOSINOPHILS # (AUTO) 0.1 x10^3/uL (0.0-0.2); EOSINOPHILS % (AUTO) 2.6 % (0.9-2.9); HEMATOCRIT 29.3 % (36.0-47.0); HEMOGLOBIN 10.2 g/dL (12.0-16.0); LYMPHOCYTES # (AUTO) 0.6 X10^3/uL (1.3-2.9); LYMPHOCYTES % (AUTO) 19.2 % (21.0-51.0); MEAN CORPUSCULAR HEMOGLOBIN 32.4 pg (27.0-34.0); MEAN CORPUSCULAR HGB CONC 34.8 g/dL (33.0-35.0); MEAN PLATELET VOLUME 8.5 fL (7.4-11.0); MONOCYTES # (AUTO) 0.4 x10^3/uL (0.3-0.8); MONOCYTES % (AUTO) 12.1 % (0.0-13.0); NEUTROPHILS # (AUTO) 2.2 x10^3/uL (2.2-4.8); NEUTROPHILS % (AUTO) 65.6 % (42.0-75.0); PLATELET COUNT 153 X10^3/uL (150.0-450.0); RED BLOOD COUNT 3.15 X10^6/uL (3.5-5.4); RED CELL DISTRIBUTION WIDTH 13.4 % (11.6-16.5); WHITE BLOOD COUNT 3.4 X10^3/uL (3.6-10.0)
[2019-01-28 06:56] LABS: ALANINE AMINOTRANSFERASE 15 Units/L (12-78); ALBUMIN 2.7 g/dL (3.4-5.0); ALKALINE PHOSPHATASE 58 Units/L (46-116); ASPARTATE AMINO TRANSFERASE 18 Units/L (15-37); BLOOD UREA NITROGEN 13 mg/dL (7-18); CALCIUM 8.4 mg/dL (8.5-10.1); CARBON DIOXIDE 25.3 mmol/L (21-32); CHLORIDE 105 mmol/L (98-107); COR CA(FOR HYPOALB) 9.4 mg/dL (8.5-10.1); CREATININE 1.02 mg/dL (0.55-1.02); SODIUM 140 mmol/L (136-145); TOTAL PROTEIN 6.2 g/dL (6.4-8.2); eGFR NON BLACK RACES 54 (>60)
--- NOTE | 2019-01-28 07:54 | RAD ---
Examination: AP chest History: Coughing SOB Comparison 01/25/2019 Findings: Continued normal heart size with clear lungs and pleural spaces. There is no mediastinal or hilar lesion. Impression: No interval change; no acute abnormality demonstrated. Reported By:
[2019-01-28] MEDS: CIPRO IV 400 MG PREMIX* 400 MG/200 ML IV.SOLN. IV SCH (09:25)
[2019-01-28] MEDS: ROCEPHIN VIAL 1 GRAM IVP SCH (09:25)
[2019-01-28] MEDS: HIPREX PO SCH ×2 (09:25→09:26)
[2019-01-28 11:11] VITALS: BP 152/68
== END 2019-01-28 11:55 | disposition home or self-care (01) | DRG 690 ==
LOC: ER 12:31 → MED/SURG 14:58
PROVIDERS: ADMIT Internal Medicine; ATTEND Internal Medicine
DX: N39.0 Urinary tract infection, site not specified; R53.1 Weakness; Z87.440 Personal history of urinary (tract) infections; R26.89 Other abnormalities of gait and mobility; R31.9 Hematuria, unspecified; B96.29 Other Escherichia coli [E. coli] as the cause of diseases classified elsewhere; I10 Essential (primary) hypertension
CPT/HCPCS: 36415; 71010; 71045; 80053; 81001; 83735; 85025; 87040; 87086; 87088; 87186; 96365; 96374; 97110; 97116; 97162; 97166; 99238; 99284; A4222; J0696; J0744; J2405; J3475; J3490; J7030

== ENCOUNTER 2019-03-12 13:47 | Inpatient (IN) ==
[2019-03-12 14:03] VITALS: BMI 25.4
--- NOTE | 2019-03-12 15:46 | ED.ABDFE ---
HPI Time Seen Time Seen by Provider: 03/12/19 15:46 PCP Primary Care Physician: MARIO KIM HPI Comment HPI Comment: 88 yo f w/ prev hx of htn, chronic uti's, rectal prolapse, hx of hysterectomy presents with approx. 1 day hx of diffuse lower abd cramping, continuous, no relieving or provoking factors, a/w n/v x 1. No f/c, urinary sx's or back pain, f/c, diarrhea, blood per rectum, cough/ cold. Last BM yesterday which was scant per daughter. Denies cp or sob. Complaint Chief Complaint:: PT STATES THAT SHE HAS ABDOMINAL PAIN AND RECTAL PAIN THAT STARTED YESTERDAY, 03/11/19 Reviewed Nurses Notes Review: Yes Source History Provided: Patient and Family Member Mode of arrival Mode of Arrival: EMS Timing Onset of Chief Complaint: 03/11/19 Came on: Gradually Modifying factors Worsening Factors: Nothing Improving Factors: Nothing Associated signs and symptoms Associated Signs and Symptoms: Nausea and Vomiting; denies Diarrhea, Constipation, Hematemesis, Hematochezia, Dysuria, Frequency and Urgency PMH PMH Past Medical History: Yes Past Medical History: Hypertension Past Medical History Comment: ECOLI UTIS; RECTAL PROLAPS Past Surgical History: Yes Surgical History: Cholecystectomy, Hysterectomy and Tonsillectomy Past Surgical History Comment: RECTAL PROLAPS; LUMPECTOMY Family History History of Family Medical Conditions: Yes Family Medical History: Cancer and Hypertension Family Medical History Comment: FATHER HAD COLON CANCER Social History Does patient currently use any type of tobacco product: No Have you used tobacco products in the last 12 months: No Type of Tobacco Use: None Does any household member use tobacco: No Alcohol Use: None Do you use any recreational Drugs:: No Lives With: Family Lives Where: Home infectious screening In the last 2 months have you had wt loss of >10#?: NO Have you had fever, night sweats or hemotysis?: No Have you traveled outside the country in the last 6 months?: No Isolation: Standard ROS Review of Systems Constitutional: No Symptoms Reported Eyes: No Symptoms Reported ENTM: No Symptoms Reported Respiratoy: No Symptoms Reported Cardiovascular: No Symptoms Reported Gastrointestinal/Abdominal: Abdominal Pain, Nausea and Vomiting; negative Constipation and Diarrhea Genitourinary: No Symptoms Reported Neurological: No Symptoms Reported Musculoskeletal: No Symptoms Reported Integumentary: No Symptoms Reported Hematologic/Lymphatic: No Symptoms Reported Endocrine: No Symptoms Reported Psychiatric: No Symptoms Reported All Other Systems: Reviewed and Negative PE Vital Signs Vitals: Temperature 97.4 F Pulse Rate 87 Respiratory Rate 16 Blood Pressure [Right Calf] 142/64 Blood Pressure [Right Arm] 135/64 Blood Pressure [Left Arm] 152/68 Blood Pressure 131/86 O2 Sat by Pulse Oximetry 100 General Limitations: No Limitations and Language Barrier General Appearance: Alert and In No Apparent Distress Head Head Exam: Normal Inspection Eyes Eye exam: Normal Appearance ENT ENT Exam: Normal Exam Neck Neck Exam: Normal Inspection Chest Chest Inspection: Normal Inspection Respiratory Respiratory Exam: Normal Lung Sounds Bilat Cardiovascular Cardiovascular Exam: Regular Rate and Normal Rhythm Abdominal Exam Abdominal Exam: Tenderness (diffuse lower tenderness ) and Hypoactive Bowel Sounds; negative Distention, Guarding, Rebound, Mass and Hernia Rectal Rectal Exam: Deferred Back Back Exam: Normal Inspection Extremeties Extremities Exam: Normal Inspection Neurologic Neurological Exam: Alert and Oriented X3 Psychiatric Psychiatric Exam: Normal Affect and Normal Mood Skin Skin Exam: Warm, Dry and Intact MDM Additional Information Obtained From Additional information provided by: Old Records and Family Differential Diagnosis Differential Diagnosis- Considerations may include:: AAA, Bowel Obstruction, Cholcystitis, Gastritus/PUD, Gastroenteritis, Ischemic Bowel, Pancreatitis and Urinary tract infection COURSE Treatment Treatment: 88 yo f w/ prev hx of htn and abdominal surgery presents with lower abd pain and n/v. CBC w/o leukocytosis. Afebrile. CT abd/ pelvis c/w diverticulitis. Abdominal exam with some lower abd tenderness but no rigidity or guarding. Patient afebrile and non toxic in appearance. Given pain meds/ antiemetics with improvement on serial exam. abx initiated. Hospitalist dr Hutchins called whom agrees to admit. Education/Counseling Education/Counseling: Patient and Family ROR Labs Reviewed Laboratory Results Reviewed?: Yes Result Diagrams: 03/12/19 16:05 03/12/19 16:05 Laboratory: WBC 8.0 X10^3/uL (3.6-10.0) 03/12/19 16:05 RBC 3.49 X10^6/uL (3.5-5.4) L 03/12/19 16:05 Hgb 10.8 g/dL (12.0-16.0) L 03/12/19 16:05 Hct 31.4 % (36.0-47.0) L 03/12/19 16:05 MCV 89.8 fL (80.0-100.0) 03/12/19 16:05 MCH 31.0 pg (27.0-34.0) 03/12/19 16:05 MCHC 34.5 g/dL (33.0-35.0) 03/12/19 16:05 RDW 13.5 % (11.6-16.5) 03/12/19 16:05 Plt Count 227 X10^3/uL (150.0-450.0) 03/12/19 16:05 MPV 8.4 fL (7.4-11.0) 03/12/19 16:05 Neut % (Auto) 86.0 % (42.0-75.0) H 03/12/19 16:05 Lymph % (Auto) 7.3 % (21.0-51.0) L 03/12/19 16:05 [place] % (Auto) 6.3 % (0.0-13.0) 03/12/19 16:05 Eos % (Auto) 0.2 % (0.9-2.9) L 03/12/19 16:05 Baso % (Auto) 0.2 % (0.2-1.0) 03/12/19 16:05 Neut # (Auto) 6.9 x10^3/uL (2.2-4.8) H 03/12/19 16:05 Lymph # (Auto) 0.6 X10^3/uL (1.3-2.9) L 03/12/19 16:05 [place] # (Auto) 0.5 x10^3/uL (0.3-0.8) 03/12/19 16:05 Eos # (Auto) 0.0 x10^3/uL (0.0-0.2) 03/12/19 16:05 Baso # (Auto) 0.0 X10^3/uL (0.0-0.1) 03/12/19 16:05 Absolute Nucleated RBC 0.4 /100WBC 03/12/19 16:05 Sodium 125 mmol/L (136-145) L* 03/12/19 16:05 Corrected Sodium TNP 03/12/19 16:05 Potassium 3.6 mmol/L (3.5-5.1) 03/12/19 16:05 Chloride 89 mmol/L (98-107) L 03/12/19 16:05 Carbon Dioxide 21.2 mmol/L (21-32) 03/12/19 16:05 BUN 18 mg/dL (7-18) 03/12/19 16:05 Creatinine 0.98 mg/dL (0.55-1.02) 03/12/19 16:05 Est GFR (MDRD) Af Amer > 60 (>60) 03/12/19 16:05 Est GFR (MDRD) Non-Af 57 (>60) L 03/12/19 16:05 Glucose 99 mg/dL (65-99) 03/12/19 16:05 Calcium 9.7 mg/dL (8.5-10.1) 03/12/19 16:05 Specimen Type Catherized urine 03/12/19 16:27 Urine Color Yellow (YELLOW) 03/12/19 16:27 Urine Appearance Clear (CLEAR) 03/12/19 16:27 Urine pH 7.0 (5.0 - 8.0) 03/12/19 16:27 Ur Specific [place] 1.010 (1.000-1.030) 03/12/19 16:27 Urine Protein Negative (NEGATIVE) 03/12/19 16:27 Urine Glucose (UA) Negative (NEGATIVE) 03/12/19 16:27 Urine Ketones 3+ (NEGATIVE) 03/12/19 16:27 Urine Occult Blood Negative (NEGATIVE) 03/12/19 16:27 Urine Nitrite Negative (NEGATIVE) 03/12/19 16:27 Urine Bilirubin Negative (NEGATIVE) 03/12/19 16:27 Urine Urobilinogen Normal (NORMAL) 03/12/19 16:27 Ur Leukocyte Esterase 1+ (NEGATIVE) 03/12/19 16:27 Urine RBC 0-2 /HPF (0-3) 03/12/19 16:27 Urine WBC 0-2 /HPF (0-5) 03/12/19 16:27 Ur Squamous Epith Cells Rare /HPF (NEGATIVE) 03/12/19 16:27 Urine Bacteria Negative /HPF (NEGATIVE) 03/12/19 16:27 Ur Culture Indicated? No/not indicated 03/12/19 16:27 XRAY XRAY Interpreted by: Radiologist XRAY Findings: ct abd with diverticulitis, tester sound sbo Opioid Opioid Risk Tool Age (Emiliano box if 16-45): No Total: 0 Total Score Risk Category: Low Risk Copyright: Joe HEARD predicting aberrant behaviors
[2019-03-12] MEDS ORDERED: NS 1000 ML 1,000 ML ONE ×2 (15:51→17:56)
[2019-03-12] MEDS ORDERED: NS 1000 ML 1,000 ML IV ONE (16:09)
[2019-03-12] MEDS ORDERED: ZOFRAN INJ 4 MG VIAL ONE (16:09)
[2019-03-12] MEDS ORDERED: ZOFRAN INJ 4 MG VIAL IVP ONE (16:11)
[2019-03-12 16:23] LABS: BASOPHILS % (AUTO) 0.2 % (0.2-1.0); EOSINOPHILS % (AUTO) 0.2 % (0.9-2.9); HEMATOCRIT 31.4 % (36.0-47.0); HEMOGLOBIN 10.8 g/dL (12.0-16.0); LYMPHOCYTES # (AUTO) 0.6 X10^3/uL (1.3-2.9); LYMPHOCYTES % (AUTO) 7.3 % (21.0-51.0); MEAN CORPUSCULAR HGB CONC 34.5 g/dL (33.0-35.0); MEAN CORPUSCULAR VOLUME 89.8 fL (80.0-100.0); MEAN PLATELET VOLUME 8.4 fL (7.4-11.0); MONOCYTES # (AUTO) 0.5 x10^3/uL (0.3-0.8); MONOCYTES % (AUTO) 6.3 % (0.0-13.0); NEUTROPHILS # (AUTO) 6.9 x10^3/uL (2.2-4.8); PLATELET COUNT 227 X10^3/uL (150.0-450.0); RED BLOOD COUNT 3.49 X10^6/uL (3.5-5.4); RED CELL DISTRIBUTION WIDTH 13.5 % (11.6-16.5)
[2019-03-12 16:27] LABS: BLOOD UREA NITROGEN 18 mg/dL (7-18); CALCIUM 9.7 mg/dL (8.5-10.1); CARBON DIOXIDE 21.2 mmol/L (21-32); CHLORIDE 89 mmol/L (98-107); CREATININE 0.98 mg/dL (0.55-1.02); SODIUM 125 mmol/L (136-145); eGFR NON BLACK RACES 57 (>60)
[2019-03-12 16:43] LABS: BILIRUBIN,URINE NEGATIVE (NEGATIVE); BLOOD/HEMOGLOBIN,URINE NEGATIVE (NEGATIVE); GLUCOSE, URINE NEGATIVE (NEGATIVE); KETONES,URINE 3+ (NEGATIVE); LEUKOCYTE ESTERASE ,URINE 1+ (NEGATIVE); NITRITES,URINE NEGATIVE (NEGATIVE); PROTEIN,URINE NEGATIVE (NEGATIVE); UROBILINOGEN,URINE NORMAL (NORMAL)
[2019-03-12 16:44] LABS: APPEARANCE,URINE CLEAR (CLEAR); COLOR,URINE YELLOW (YELLOW)
[2019-03-12 16:49] LABS: BACTERIA,URINE NEGATIVE /HPF (NEGATIVE); RBC,URINE 0-2 /HPF (0-3); SQUAMOUS EPITHELIAL CELL,UR RARE /HPF (NEGATIVE)
--- NOTE | 2019-03-12 17:14 | CT ---
HISTORY: Abdominal pain, rectal pain Study: CT abdomen and pelvis without contrast Comparison: None Technique: Multiple axial images of the abdomen and pelvis were obtained without IV contrast. Dose reduction techniques including Automated Exposure Control (AEC) and adjustment of mA and kV were utilized. Findings: Please note evaluation is limited without use of IV contrast. The exam is limited by motion artifact. Small hiatal hernia. There are prominent vascular calcifications as well as calcifications of the mitral annulus seen at the lung bases. No infiltrate or effusion. The unenhanced spleen, pancreas, liver, adrenal glands are unremarkable. Gallbladder is removed. No renal calculi or obstructive uropathy identified. No free intraperitoneal air. No evidence of bowel obstruction. There is colonic diverticulosis with segmental bowel wall thickening and inflammation in the mid sigmoid colon compatible with acute diverticulitis. No gross abscess or perforation although evaluation is limited this noncontrast exam. Multilevel discogenic degenerative changes of the thoracolumbar spine noted with scoliosis. Limited evaluation of vascular structures due to lack of contrast. No pathologically enlarged lymph nodes are identified. Normal urinary bladder. Uterus is removed. IMPRESSION: 1. Findings compatible with acute diverticulitis of the sigmoid colon as described. 2. Multiple additional chronic findings as detailed above. Reported By:
[2019-03-12] MEDS ORDERED: NORCO 5/325 MG TAB PO ONE (17:23)
[2019-03-12] MEDS ORDERED: CIPRO IV 400 MG PREMIX* 400 MG/200 ML IV.SOLN. IV ONE (17:23)
[2019-03-12] MEDS ORDERED: FLAGYL IV PREMIX 500 MG BAG 500 MG/100 ML BAG IV ONE (17:23)
[2019-03-12] MEDS ORDERED: NORCO 5/325 MG TAB ONE (17:48)
[2019-03-12] MEDS ORDERED: CIPRO IV 400 MG PREMIX* 400 MG/200 ML IV.SOLN. ONE (17:48)
[2019-03-12] MEDS ORDERED: TYLENOL 325 MG TAB PO PRN (18:14)
[2019-03-12] MEDS: PEPCID TAB 20 MG PO SCH (21:35)
[2019-03-12] MEDS: RESTORIL CAP 15 MG PO PRN (21:35)
[2019-03-13] MEDS ORDERED: FLAGYL IV PREMIX 500 MG BAG 500 MG/100 ML BAG IV ONE (00:03)
[2019-03-13] MEDS: FLAGYL IV PREMIX 500 MG BAG 500 MG/100 ML BAG IV SCH ×4 (06:00→21:10)
[2019-03-13] MEDS: CIPRO IV 400 MG PREMIX* 400 MG/200 ML IV.SOLN. IV SCH ×2 (09:17→21:12)
[2019-03-13] MEDS ORDERED: PHARMACY CONSULT - DOSE _____ XX SCH (10:00)
[2019-03-13] MEDS: NS 1000 ML 1,000 ML IV SCH ×2 (11:16→21:12)
[2019-03-13] MEDS ORDERED: MILK OF MAGNESIA PO ONE (13:50)
--- NOTE | 2019-03-13 14:03 | DR.H&P ---
H&P - History & Physical for Day of: H&P Date: 03/12/19 - Chief Complaint Chief Complaint: ABDOMINAL PAIN, RECTAL PAIN - History of Present Illness History of Present Illness: 88 WF ER ADMISSION WITH CO ABDOMINAL PAIN, RECTAL PAIN. PT HAD HXOF RECTAL PROLAPSE, REOCCURRING UTIS. PT HAD CT SCAN IN ER WITH ACUTE DIVERTICULITIS. PT WAS STARTED ON IV FLAGYL ON ADMISSION. - Past Medical History Past Medical History: Hypertension Additional Medical History: chronic UTIs - Past Surgical History Surgical History: Cholecystectomy, Hysterectomy, Tonsillectomy, Other - Family History Family Medical History: Cancer, Hypertension - Social History Does patient currently use any type of tobacco product: No Have you used tobacco products in the last 12 months: No Type of Tobacco Use: None Does any household member use tobacco: No Alcohol Use: None Drug Use: None - Medications Home Medications: No Known Drug Allergies Allergy (Verified 03/12/19 18:07) CONTINUE taking the following medications aspirin 1 tab PO DAILY 03/13/19 [History] - Review of Systems Constitutional: Weakness Eyes: No Symptoms Reported ENT: No Symptoms Reported Respiratory: No Symptoms Reported Cardiovascular: No Symptoms Reported Gastrointestinal: Nausea, Abdominal Pain, Constipation Musculoskeletal: Back Pain Skin: No Symptoms Reported Neurological: No Symptoms Reported - Physical Exam Vital Signs: Temperature 97.9 F Pulse Rate [Left Radial] 70 Pulse Rate 87 Respiratory Rate 18 Blood Pressure [Right Calf] 132/63 Blood Pressure [Right Arm] 135/64 Blood Pressure [Left Arm] 120/57 Blood Pressure 131/86 O2 Sat by Pulse Oximetry 100 Oriented: Normal Eyes: Normal Ear: Normal Nose: Normal Throat: Normal Respiratory: RLL Diminished, LLL Diminished Cardiovascular: Normal : Normal Auscultation: Bowel Sounds: Normal Palpation: Normal Tenderness: LLQ, Suprapubic Skin: Normal Musculoskeletal: Normal Psychiatric: Normal Mood Description: Calm Speech Pattern: Clear, Appropriate - Assessment/Plan (1) Acute diverticulitis Status: Acute Plan: ADMIT, PAIN AND NAUSEA CONTROL. IV ATBX THERAPY, STOOL STUDIES - Allergies Allergies/Adverse Reactions: Allergies Allergy/AdvReac Type Severity Reaction Status Date / Time No Known Drug Allergies Allergy Verified 03/12/19 18:07
--- NOTE | 2019-03-13 14:06 | PCM.PROG ---
Progress Note - Progress Note for Day of Date of Exam: 03/13/19 - Subjective Subjective: 88 WF ER ADMISSION WITH ACUTE DIVERTICULITIS. PT CARMENUGHER REPORTS PT HAS BEEN CONSTIPATION AND EATIN [place] SEENDS TO HELP DIGESTIONS. PT IS CURRENTLY ON IV FLAGYL AND ADDED CIPRO IV WITH GENTLE IV HYDRATION. PT ENCOURAGED CLEAR LIQUIDS. PT STATES HER PAIN IS BETTER, ASKING FOR SOFT DIET. WILL REPEAT AM LABS. OBTAIN STOOL CULTURE AND OCCULT STOOL - Past Medical Family Social History Past Med/Fam/Surg Hx: No changes since H&P Allergies: Allergies No Known Drug Allergies Allergy (Verified 03/12/19 18:07) - Review of Systems ROS: No change since H&P - Vital Signs and I&O's Vital Signs: Temperature 97.9 F Pulse Rate [Left Radial] 70 Pulse Rate 87 Respiratory Rate 18 Blood Pressure [Right Calf] 132/63 Blood Pressure [Right Arm] 135/64 Blood Pressure [Left Arm] 120/57 Blood Pressure 131/86 O2 Sat by Pulse Oximetry 100 Intake and Output: Intake & Output 03/11/19 03/12/19 03/13/19 03/14/19 11:59 11:59 11:59 11:59 Intake Total 480 / 480 Balance 480 / 480 - Physical Exam Oriented: Normal Eyes: Normal Ear: Normal Nose: Normal Throat: Normal Cardiovascular: Normal : Normal Auscultation: Bowel Sounds: Normal Tenderness: LLQ, Suprapubic Skin: Normal Musculoskeletal: Normal Psychiatric: Normal Mood Description: Calm Speech Pattern: Clear, Appropriate - Laboratory and Diagnostics Result Diagrams: 03/12/19 16:05 03/12/19 16:05 Labs: Laboratory WBC 8.0 X10^3/uL (3.6-10.0) 03/12/19 16:05 RBC 3.49 X10^6/uL (3.5-5.4) L 03/12/19 16:05 Hgb 10.8 g/dL (12.0-16.0) L 03/12/19 16:05 Hct 31.4 % (36.0-47.0) L 03/12/19 16:05 MCV 89.8 fL (80.0-100.0) 03/12/19 16:05 MCH 31.0 pg (27.0-34.0) 03/12/19 16:05 MCHC 34.5 g/dL (33.0-35.0) 03/12/19 16:05 RDW 13.5 % (11.6-16.5) 03/12/19 16:05 Plt Count 227 X10^3/uL (150.0-450.0) 03/12/19 16:05 MPV 8.4 fL (7.4-11.0) 03/12/19 16:05 Neut % (Auto) 86.0 % (42.0-75.0) H 03/12/19 16:05 Lymph % (Auto) 7.3 % (21.0-51.0) L 03/12/19 16:05 [place] % (Auto) 6.3 % (0.0-13.0) 03/12/19 16:05 Eos % (Auto) 0.2 % (0.9-2.9) L 03/12/19 16:05 Baso % (Auto) 0.2 % (0.2-1.0) 03/12/19 16:05 Neut # (Auto) 6.9 x10^3/uL (2.2-4.8) H 03/12/19 16:05 Lymph # (Auto) 0.6 X10^3/uL (1.3-2.9) L 03/12/19 16:05 [place] # (Auto) 0.5 x10^3/uL (0.3-0.8) 03/12/19 16:05 Eos # (Auto) 0.0 x10^3/uL (0.0-0.2) 03/12/19 16:05 Baso # (Auto) 0.0 X10^3/uL (0.0-0.1) 03/12/19 16:05 Absolute Nucleated RBC 0.4 /100WBC 03/12/19 16:05 Sodium 125 mmol/L (136-145) L* 03/12/19 16:05 Corrected Sodium TNP 03/12/19 16:05 Potassium 3.6 mmol/L (3.5-5.1) 03/12/19 16:05 Chloride 89 mmol/L (98-107) L 03/12/19 16:05 Carbon Dioxide 21.2 mmol/L (21-32) 03/12/19 16:05 BUN 18 mg/dL (7-18) 03/12/19 16:05 Creatinine 0.98 mg/dL (0.55-1.02) 03/12/19 16:05 Est GFR (MDRD) Af Amer > 60 (>60) 03/12/19 16:05 Est GFR (MDRD) Non-Af 57 (>60) L 03/12/19 16:05 Glucose 99 mg/dL (65-99) 03/12/19 16:05 Calcium 9.7 mg/dL (8.5-10.1) 03/12/19 16:05 Specimen Type Catherized urine 03/12/19 16:27 Urine Color Yellow (YELLOW) 03/12/19 16:27 Urine Appearance Clear (CLEAR) 03/12/19 16:27 Urine pH 7.0 (5.0 - 8.0) 03/12/19 16:27 Ur Specific [place] 1.010 (1.000-1.030) 03/12/19 16:27 Urine Protein Negative (NEGATIVE) 03/12/19 16:27 Urine Glucose (UA) Negative (NEGATIVE) 03/12/19 16:27 Urine Ketones 3+ (NEGATIVE) 03/12/19 16:27 Urine Occult Blood Negative (NEGATIVE) 03/12/19 16:27 Urine Nitrite Negative (NEGATIVE) 03/12/19 16:27 Urine Bilirubin Negative (NEGATIVE) 03/12/19 16:27 Urine Urobilinogen Normal (NORMAL) 03/12/19 16:27 Ur Leukocyte Esterase 1+ (NEGATIVE) 03/12/19 16:27 Urine RBC 0-2 /HPF (0-3) 03/12/19 16:27 Urine WBC 0-2 /HPF (0-5) 03/12/19 16:27 Ur Squamous Epith Cells Rare /HPF (NEGATIVE) 03/12/19 16:27 Urine Bacteria Negative /HPF (NEGATIVE) 03/12/19 16:27 Ur Culture Indicated? No/not indicated 03/12/19 16:27 - Plan (1) Acute diverticulitis Status: Acute Plan: PAIN AND NAUSEA CONTROL. IV ATBX THERAPY, STOOL STUDIES. AM LABS
[2019-03-13 14:37] LABS: BASOPHILS % (AUTO) 0.2 % (0.2-1.0); EOSINOPHILS % (AUTO) 0.8 % (0.9-2.9); HEMATOCRIT 30.7 % (36.0-47.0); HEMOGLOBIN 10.6 g/dL (12.0-16.0); LYMPHOCYTES # (AUTO) 0.8 X10^3/uL (1.3-2.9); LYMPHOCYTES % (AUTO) 14.7 % (21.0-51.0); MEAN CORPUSCULAR HEMOGLOBIN 31.1 pg (27.0-34.0); MEAN CORPUSCULAR HGB CONC 34.5 g/dL (33.0-35.0); MEAN CORPUSCULAR VOLUME 90.1 fL (80.0-100.0); MEAN PLATELET VOLUME 7.9 fL (7.4-11.0); MONOCYTES # (AUTO) 0.5 x10^3/uL (0.3-0.8); MONOCYTES % (AUTO) 8.6 % (0.0-13.0); NEUTROPHILS # (AUTO) 4.2 x10^3/uL (2.2-4.8); NEUTROPHILS % (AUTO) 75.7 % (42.0-75.0); PLATELET COUNT 222 X10^3/uL (150.0-450.0); RED CELL DISTRIBUTION WIDTH 14.1 % (11.6-16.5); WHITE BLOOD COUNT 5.5 X10^3/uL (3.6-10.0)
[2019-03-13] MEDS: LOVENOX INJ 40 MG SYR SC SCH (14:46)
[2019-03-13 14:47] LABS: ALANINE AMINOTRANSFERASE 20 Units/L (12-78); ALBUMIN 3.2 g/dL (3.4-5.0); ALKALINE PHOSPHATASE 66 Units/L (46-116); ASPARTATE AMINO TRANSFERASE 24 Units/L (15-37); BLOOD UREA NITROGEN 13 mg/dL (7-18); CARBON DIOXIDE 24.5 mmol/L (21-32); CHLORIDE 102 mmol/L (98-107); COR CA(FOR HYPOALB) 9.6 mg/dL (8.5-10.1); COR NA(FOR HYPERGLY) 137 mmol/L (136-145); CREATININE 1.05 mg/dL (0.55-1.02); SODIUM 137 mmol/L (136-145); TOTAL PROTEIN 6.7 g/dL (6.4-8.2); eGFR NON BLACK RACES 53 (>60)
[2019-03-13] MEDS ORDERED: K-DUR TAB 20 MEQ ONE (16:26)
[2019-03-13] MEDS: K-DUR TAB 20 MEQ PO PRN (16:40)
[2019-03-13] MEDS: ZOFRAN INJ 4 MG VIAL IVP PRN (17:14)
[2019-03-13] MEDS: RESTORIL CAP 15 MG PO PRN (21:10)
[2019-03-13] MEDS: PEPCID TAB 20 MG PO SCH (21:10)
[2019-03-14] MEDS: NS 1000 ML 1,000 ML IV SCH ×2 (01:44→18:19)
[2019-03-14] MEDS: FLAGYL IV PREMIX 500 MG BAG 500 MG/100 ML BAG IV SCH ×4 (03:45→21:02)
[2019-03-14 05:29] LABS: BASOPHILS % (AUTO) 0.7 % (0.2-1.0); EOSINOPHILS # (AUTO) 0.1 x10^3/uL (0.0-0.2); HEMATOCRIT 28.8 % (36.0-47.0); HEMOGLOBIN 9.9 g/dL (12.0-16.0); LYMPHOCYTES # (AUTO) 0.9 X10^3/uL (1.3-2.9); LYMPHOCYTES % (AUTO) 18.2 % (21.0-51.0); MEAN CORPUSCULAR HEMOGLOBIN 31.4 pg (27.0-34.0); MEAN CORPUSCULAR HGB CONC 34.3 g/dL (33.0-35.0); MEAN CORPUSCULAR VOLUME 91.6 fL (80.0-100.0); MEAN PLATELET VOLUME 8.2 fL (7.4-11.0); MONOCYTES # (AUTO) 0.5 x10^3/uL (0.3-0.8); MONOCYTES % (AUTO) 10.5 % (0.0-13.0); NEUTROPHILS # (AUTO) 3.4 x10^3/uL (2.2-4.8); NEUTROPHILS % (AUTO) 69.6 % (42.0-75.0); PLATELET COUNT 197 X10^3/uL (150.0-450.0); RED BLOOD COUNT 3.14 X10^6/uL (3.5-5.4); RED CELL DISTRIBUTION WIDTH 14.3 % (11.6-16.5)
[2019-03-14 05:45] LABS: ALANINE AMINOTRANSFERASE 17 Units/L (12-78); ALBUMIN 2.8 g/dL (3.4-5.0); ALKALINE PHOSPHATASE 51 Units/L (46-116); ASPARTATE AMINO TRANSFERASE 20 Units/L (15-37); BLOOD UREA NITROGEN 10 mg/dL (7-18); CALCIUM 8.1 mg/dL (8.5-10.1); CARBON DIOXIDE 23.5 mmol/L (21-32); CHLORIDE 103 mmol/L (98-107); COR CA(FOR HYPOALB) 9.1 mg/dL (8.5-10.1); CREATININE 0.86 mg/dL (0.55-1.02); SODIUM 136 mmol/L (136-145); TOTAL PROTEIN 5.9 g/dL (6.4-8.2); eGFR NON BLACK RACES > 60 (>60)
[2019-03-14] MEDS: CIPRO IV 400 MG PREMIX* 400 MG/200 ML IV.SOLN. IV SCH ×2 (08:39→21:02)
[2019-03-14] MEDS: LOVENOX INJ 40 MG SYR SC SCH (08:39)
--- NOTE | 2019-03-14 09:43 | RAD ---
History: Abdominal pain and constipation Study: Acute abdominal series Comparison: Chest x-ray of January 28, 2019 Findings: The lungs are grossly clear. There is mitral valve annular calcification. The heart size is normal. There is no edema or effusion. The bowel gas pattern is unremarkable. No urinary tract calcification is demonstrated. There is severe lumbar degenerative disc disease and mild dextroscoliosis of the lower thoracic upper lumbar spine. Impression: Severe lumbar degenerative disc disease with scoliosis, no acute chest or abdominal disease is demonstrated. Reported By:
--- NOTE | 2019-03-14 14:57 | PCM.PROG ---
Progress Note - Progress Note for Day of Date of Exam: 03/14/19 - Subjective Subjective: 88 WF ER ADMISSION WITH ACUTE DIVERTICULITIS. PT CARMENUGHER REPORTS PT HAS BEEN CONSTIPATION AND EATING [place] SEEDS TO HELP DIGESTIONS. PT IS CURRENTLY ON IV FLAGYL AND CIPRO IV WITH GENTLE IV HYDRATION.PT WAS ADVANCED TO SOFT DIET YESTERDAY DUE TO IMPROVED PAIN. PT CO NAUSEA THIS AM, REPORTS LARGE BM LATE YESTERDAY. PT CO LLQ PAIN THIS AM, MILDLY TENDER ON EXAM. DISCUSSED DECREASED DIET CLEAR LIQUIDS AND REPEAT AM CT SCAN ABD/PELVIS. - Past Medical Family Social History Past Med/Fam/Surg Hx: No changes since H&P Allergies: Allergies No Known Drug Allergies Allergy (Verified 03/12/19 18:07) - Review of Systems ROS: No change since H&P - Vital Signs and I&O's Vital Signs: Temperature 98.5 F Pulse Rate [Left Radial] 76 Pulse Rate 87 Respiratory Rate 18 Blood Pressure [Right Calf] 132/63 Blood Pressure [Right Arm] 135/64 Blood Pressure [Left Arm] 144/64 Blood Pressure 131/86 O2 Sat by Pulse Oximetry 97 Intake and Output: Intake & Output 03/12/19 03/13/19 03/14/19 03/15/19 11:59 11:59 11:59 11:59 Intake Total 480 / 480 2240 / 2240 Balance 480 / 480 2240 / 2240 - Physical Exam Oriented: Normal Eyes: Normal Ear: Normal Nose: Normal Throat: Normal Cardiovascular: Normal : Normal Auscultation: Bowel Sounds: Normal Tenderness: LLQ, Mild Skin: Normal Musculoskeletal: Normal Psychiatric: Normal Mood Description: Calm Speech Pattern: Clear, Appropriate - Laboratory and Diagnostics Result Diagrams: 03/14/19 05:00 03/14/19 05:00 Labs: Laboratory WBC 5.0 X10^3/uL (3.6-10.0) 03/14/19 05:00 RBC 3.14 X10^6/uL (3.5-5.4) L 03/14/19 05:00 Hgb 9.9 g/dL (12.0-16.0) L 03/14/19 05:00 Hct 28.8 % (36.0-47.0) L 03/14/19 05:00 MCV 91.6 fL (80.0-100.0) 03/14/19 05:00 MCH 31.4 pg (27.0-34.0) 03/14/19 05:00 MCHC 34.3 g/dL (33.0-35.0) 03/14/19 05:00 RDW 14.3 % (11.6-16.5) 03/14/19 05:00 Plt Count 197 X10^3/uL (150.0-450.0) 03/14/19 05:00 MPV 8.2 fL (7.4-11.0) 03/14/19 05:00 Neut % (Auto) 69.6 % (42.0-75.0) 03/14/19 05:00 Lymph % (Auto) 18.2 % (21.0-51.0) L 03/14/19 05:00 [place] % (Auto) 10.5 % (0.0-13.0) 03/14/19 05:00 Eos % (Auto) 1.0 % (0.9-2.9) 03/14/19 05:00 Baso % (Auto) 0.7 % (0.2-1.0) 03/14/19 05:00 Neut # (Auto) 3.4 x10^3/uL (2.2-4.8) 03/14/19 05:00 Lymph # (Auto) 0.9 X10^3/uL (1.3-2.9) L 03/14/19 05:00 [place] # (Auto) 0.5 x10^3/uL (0.3-0.8) 03/14/19 05:00 Eos # (Auto) 0.1 x10^3/uL (0.0-0.2) 03/14/19 05:00 Baso # (Auto) 0.0 X10^3/uL (0.0-0.1) 03/14/19 05:00 Absolute Nucleated RBC 0.0 /100WBC 03/14/19 05:00 Sodium 136 mmol/L (136-145) 03/14/19 05:00 Corrected Sodium TNP 03/14/19 05:00 Potassium 3.8 mmol/L (3.5-5.1) 03/14/19 05:00 Chloride 103 mmol/L (98-107) 03/14/19 05:00 Carbon Dioxide 23.5 mmol/L (21-32) 03/14/19 05:00 BUN 10 mg/dL (7-18) 03/14/19 05:00 Creatinine 0.86 mg/dL (0.55-1.02) 03/14/19 05:00 Est GFR (MDRD) Af Amer > 60 (>60) 03/14/19 05:00 Est GFR (MDRD) Non-Af > 60 (>60) 03/14/19 05:00 Glucose 103 mg/dL (65-99) H 03/14/19 05:00 Calcium 8.1 mg/dL (8.5-10.1) L 03/14/19 05:00 Corrected Calcium 9.1 mg/dL (8.5-10.1) 03/14/19 05:00 Total Bilirubin 0.40 mg/dL (0.2-1.0) 03/14/19 05:00 AST 20 Units/L (15-37) 03/14/19 05:00 ALT 17 Units/L (12-78) 03/14/19 05:00 Alkaline Phosphatase 51 Units/L (46-116) 03/14/19 05:00 Total Protein 5.9 g/dL (6.4-8.2) L 03/14/19 05:00 Albumin 2.8 g/dL (3.4-5.0) L 03/14/19 05:00 Globulin 3.1 g/dL (2.5-4.5) 03/14/19 05:00 Albumin/Globulin Ratio 0.9 Ratio (1.1-2.1) L 03/14/19 05:00 Specimen Type Catherized urine 03/12/19 16:27 Urine Color Yellow (YELLOW) 03/12/19 16:27 Urine Appearance Clear (CLEAR) 03/12/19 16:27 Urine pH 7.0 (5.0 - 8.0) 03/12/19 16:27 Ur Specific [place] 1.010 (1.000-1.030) 03/12/19 16:27 Urine Protein Negative (NEGATIVE) 03/12/19 16:27 Urine Glucose (UA) Negative (NEGATIVE) 03/12/19 16:27 Urine Ketones 3+ (NEGATIVE) 03/12/19 16:27 Urine Occult Blood Negative (NEGATIVE) 03/12/19 16:27 Urine Nitrite Negative (NEGATIVE) 03/12/19 16:27 Urine Bilirubin Negative (NEGATIVE) 03/12/19 16:27 Urine Urobilinogen Normal (NORMAL) 03/12/19 16:27 Ur Leukocyte Esterase 1+ (NEGATIVE) 03/12/19 16:27 Urine RBC 0-2 /HPF (0-3) 03/12/19 16:27 Urine WBC 0-2 /HPF (0-5) 03/12/19 16:27 Ur Squamous Epith Cells Rare /HPF (NEGATIVE) 03/12/19 16:27 Urine Bacteria Negative /HPF (NEGATIVE) 03/12/19 16:27 Ur Culture Indicated? No/not indicated 03/12/19 16:27 - Plan (1) Acute diverticulitis Status: Acute Plan: PAIN AND NAUSEA CONTROL. IV ATBX THERAPY, STOOL STUDIES. AM LABS
[2019-03-14] MEDS: ZOFRAN INJ 4 MG VIAL IVP PRN (16:15)
[2019-03-14] MEDS: PEPCID TAB 20 MG PO SCH (21:02)
[2019-03-15] MEDS: FLAGYL IV PREMIX 500 MG BAG 500 MG/100 ML BAG IV SCH ×4 (02:45→20:25)
[2019-03-15 06:46] LABS: BASOPHILS % (AUTO) 0.3 % (0.2-1.0); EOSINOPHILS % (AUTO) 0.7 % (0.9-2.9); HEMOGLOBIN 8.7 g/dL (12.0-16.0); LYMPHOCYTES # (AUTO) 0.6 X10^3/uL (1.3-2.9); LYMPHOCYTES % (AUTO) 12.9 % (21.0-51.0); MEAN CORPUSCULAR HEMOGLOBIN 31.5 pg (27.0-34.0); MEAN CORPUSCULAR HGB CONC 34.8 g/dL (33.0-35.0); MEAN CORPUSCULAR VOLUME 90.6 fL (80.0-100.0); MEAN PLATELET VOLUME 7.6 fL (7.4-11.0); MONOCYTES # (AUTO) 0.4 x10^3/uL (0.3-0.8); MONOCYTES % (AUTO) 8.6 % (0.0-13.0); NEUTROPHILS # (AUTO) 3.7 x10^3/uL (2.2-4.8); NEUTROPHILS % (AUTO) 77.5 % (42.0-75.0); PLATELET COUNT 184 X10^3/uL (150.0-450.0); RED BLOOD COUNT 2.76 X10^6/uL (3.5-5.4); RED CELL DISTRIBUTION WIDTH 13.8 % (11.6-16.5); WHITE BLOOD COUNT 4.8 X10^3/uL (3.6-10.0)
[2019-03-15 06:55] LABS: ALANINE AMINOTRANSFERASE 13 Units/L (12-78); ALBUMIN 2.6 g/dL (3.4-5.0); ALKALINE PHOSPHATASE 47 Units/L (46-116); ASPARTATE AMINO TRANSFERASE 17 Units/L (15-37); BLOOD UREA NITROGEN 8 mg/dL (7-18); CALCIUM 7.8 mg/dL (8.5-10.1); CARBON DIOXIDE 24.9 mmol/L (21-32); CHLORIDE 99 mmol/L (98-107); COR CA(FOR HYPOALB) 8.9 mg/dL (8.5-10.1); CREATININE 0.82 mg/dL (0.55-1.02); SODIUM 132 mmol/L (136-145); TOTAL PROTEIN 5.5 g/dL (6.4-8.2); eGFR NON BLACK RACES > 60 (>60)
--- NOTE | 2019-03-15 08:03 | CT ---
History: Abdominal pain Study: CT of the abdomen and the pelvis with 100 mL Omnipaque 350 IV contrast and with oral contrast. Sagittal and coronal reformations were provided. Dose reduction techniques were utilized. Comparison: March 12, 2019 Findings: There is increased edema and thickening of the wall of the sigmoid colon with prominent stranding of fat planes about the sigmoid colon. No abscess is demonstrated. There is no free air. There is no bowel obstruction. The liver is unremarkable. The spleen remains mildly enlarged. There is mild fatty infiltration of the liver. The pancreas and adrenal glands and kidneys are unremarkable. The gallbladder and uterus are surgically absent. The appendix appears unremarkable. There is no aneurysm. There is levoscoliosis of the lumbar spine with severe degenerative osteophytes. Impression: 1. Persistent findings of severe sigmoid diverticulitis. No abscess formation or free air. Reported By:
[2019-03-15] MEDS: CIPRO IV 400 MG PREMIX* 400 MG/200 ML IV.SOLN. IV SCH ×2 (08:33→20:25)
[2019-03-15] MEDS: LOVENOX INJ 40 MG SYR SC SCH (08:34)
[2019-03-15] MEDS ORDERED: OFIRMEV IV 1000 MG VIAL 1,000 MG/100 ML VIAL IV PRN (11:19)
[2019-03-15] MEDS: BENTYL CAP 10 MG PO SCH ×3 (13:14→20:25)
[2019-03-15] MEDS: NS 1000 ML 1,000 ML IV SCH (20:25)
[2019-03-15] MEDS: PEPCID TAB 20 MG PO SCH (20:25)
[2019-03-15] MEDS: RESTORIL CAP 15 MG PO PRN (21:37)
[2019-03-16] MEDS: FLAGYL IV PREMIX 500 MG BAG 500 MG/100 ML BAG IV SCH ×4 (02:07→21:06)
[2019-03-16 06:35] LABS: BASOPHILS % (AUTO) 0.8 % (0.2-1.0); EOSINOPHILS # (AUTO) 0.1 x10^3/uL (0.0-0.2); EOSINOPHILS % (AUTO) 1.2 % (0.9-2.9); HEMATOCRIT 28.3 % (36.0-47.0); HEMOGLOBIN 9.9 g/dL (12.0-16.0); LYMPHOCYTES # (AUTO) 0.8 X10^3/uL (1.3-2.9); MEAN CORPUSCULAR HEMOGLOBIN 31.3 pg (27.0-34.0); MEAN CORPUSCULAR HGB CONC 34.9 g/dL (33.0-35.0); MEAN CORPUSCULAR VOLUME 89.8 fL (80.0-100.0); MEAN PLATELET VOLUME 7.5 fL (7.4-11.0); MONOCYTES # (AUTO) 0.3 x10^3/uL (0.3-0.8); MONOCYTES % (AUTO) 7.6 % (0.0-13.0); NEUTROPHILS # (AUTO) 3.2 x10^3/uL (2.2-4.8); NEUTROPHILS % (AUTO) 72.4 % (42.0-75.0); PLATELET COUNT 219 X10^3/uL (150.0-450.0); RED BLOOD COUNT 3.15 X10^6/uL (3.5-5.4); RED CELL DISTRIBUTION WIDTH 14.2 % (11.6-16.5); WHITE BLOOD COUNT 4.5 X10^3/uL (3.6-10.0)
[2019-03-16 06:40] LABS: ALANINE AMINOTRANSFERASE 18 Units/L (12-78); ALKALINE PHOSPHATASE 53 Units/L (46-116); ASPARTATE AMINO TRANSFERASE 28 Units/L (15-37); BLOOD UREA NITROGEN 5 mg/dL (7-18); CALCIUM 8.6 mg/dL (8.5-10.1); CARBON DIOXIDE 25.6 mmol/L (21-32); CHLORIDE 100 mmol/L (98-107); COR CA(FOR HYPOALB) 9.4 mg/dL (8.5-10.1); CREATININE 0.79 mg/dL (0.55-1.02); SODIUM 136 mmol/L (136-145); TOTAL PROTEIN 6.2 g/dL (6.4-8.2); eGFR NON BLACK RACES > 60 (>60)
[2019-03-16] MEDS: BENTYL CAP 10 MG PO SCH ×4 (08:28→21:05)
[2019-03-16] MEDS: CIPRO IV 400 MG PREMIX* 400 MG/200 ML IV.SOLN. IV SCH ×2 (08:29→21:06)
[2019-03-16] MEDS: NS 1000 ML 1,000 ML IV SCH ×3 (08:30→15:23)
[2019-03-16] MEDS ORDERED: NS 100 ML IV 100 ML with VENOFER 400 MG IV NR ×2 (09:00)
[2019-03-16] MEDS: LOVENOX INJ 40 MG SYR SC SCH (10:18)
[2019-03-16] MEDS: PEPCID TAB 20 MG PO SCH (21:05)
[2019-03-16] MEDS: K-DUR TAB 20 MEQ PO PRN (21:05)
[2019-03-17] MEDS: FLAGYL IV PREMIX 500 MG BAG 500 MG/100 ML BAG IV SCH ×4 (02:31→21:34)
[2019-03-17] MEDS: NS 1000 ML 1,000 ML IV SCH ×3 (02:31→18:58)
[2019-03-17 06:27] LABS: BASOPHILS % (AUTO) 0.6 % (0.2-1.0); EOSINOPHILS # (AUTO) 0.1 x10^3/uL (0.0-0.2); EOSINOPHILS % (AUTO) 1.9 % (0.9-2.9); HEMATOCRIT 27.9 % (36.0-47.0); HEMOGLOBIN 9.6 g/dL (12.0-16.0); LYMPHOCYTES # (AUTO) 0.7 X10^3/uL (1.3-2.9); LYMPHOCYTES % (AUTO) 20.7 % (21.0-51.0); MEAN CORPUSCULAR HEMOGLOBIN 31.2 pg (27.0-34.0); MEAN CORPUSCULAR HGB CONC 34.4 g/dL (33.0-35.0); MEAN CORPUSCULAR VOLUME 90.8 fL (80.0-100.0); MEAN PLATELET VOLUME 7.5 fL (7.4-11.0); MONOCYTES # (AUTO) 0.3 x10^3/uL (0.3-0.8); MONOCYTES % (AUTO) 9.3 % (0.0-13.0); NEUTROPHILS # (AUTO) 2.3 x10^3/uL (2.2-4.8); NEUTROPHILS % (AUTO) 67.5 % (42.0-75.0); PLATELET COUNT 212 X10^3/uL (150.0-450.0); RED BLOOD COUNT 3.07 X10^6/uL (3.5-5.4); RED CELL DISTRIBUTION WIDTH 14.2 % (11.6-16.5); WHITE BLOOD COUNT 3.4 X10^3/uL (3.6-10.0)
[2019-03-17 06:44] LABS: ALANINE AMINOTRANSFERASE 25 Units/L (12-78); ALBUMIN 2.7 g/dL (3.4-5.0); ALKALINE PHOSPHATASE 48 Units/L (46-116); ASPARTATE AMINO TRANSFERASE 43 Units/L (15-37); BLOOD UREA NITROGEN 4 mg/dL (7-18); CALCIUM 8.4 mg/dL (8.5-10.1); CARBON DIOXIDE 26.1 mmol/L (21-32); CHLORIDE 104 mmol/L (98-107); COR CA(FOR HYPOALB) 9.4 mg/dL (8.5-10.1); CREATININE 0.81 mg/dL (0.55-1.02); SODIUM 138 mmol/L (136-145); TOTAL PROTEIN 5.7 g/dL (6.4-8.2); eGFR NON BLACK RACES > 60 (>60)
[2019-03-17] MEDS: ZOFRAN INJ 4 MG VIAL IVP PRN (06:58)
[2019-03-17] MEDS ORDERED: ZESTRIL TAB 5 MG ONE (09:16)
[2019-03-17] MEDS: CIPRO IV 400 MG PREMIX* 400 MG/200 ML IV.SOLN. IV SCH ×2 (10:05→21:34)
[2019-03-17] MEDS: BENTYL CAP 10 MG PO SCH ×4 (10:06→21:34)
[2019-03-17] MEDS: LOVENOX INJ 40 MG SYR SC SCH (10:06)
[2019-03-17] MEDS: ZESTRIL TAB 5 MG PO SCH (10:06)
--- NOTE | 2019-03-17 17:16 | DR.PROGNOT ---
Hospital Progress Notes - Progress Note for Day of: Progress Note Date: 03/17/19 - Chief Complaint Chief Complaint: less abdominal pain , no nausea or vomiting . had normal BM last night . - Past Medical Family Social History Past Med/Fam/Surg Hx: No changes since H&P Allergies: Allergies No Known Drug Allergies Allergy (Verified 03/12/19 18:07) - Review Of Systems ROS: No change since H&P - Vital Signs Vital Signs: Temperature 98.3 F Pulse Rate [Left Radial] 66 Pulse Rate 87 Respiratory Rate 20 Blood Pressure [Right Calf] 132/63 Blood Pressure [Right Arm] 135/64 Blood Pressure [Left Arm] 145/68 Blood Pressure 131/86 O2 Sat by Pulse Oximetry 99 - Physical Exam Oriented: Normal Eyes: Normal Ear: Normal Nose: Normal Throat: Normal Cardiovascular: Normal : Normal GI:Auscultation: Normal GI:Palpation: Normal GI: Tenderness: LLQ, Mild (soft abdomen . BS+. LLQ tenderness , no rebound , no masses felt .) Skin: Normal Musculoskeletal: Normal Psychiatric: Normal Mood Description: Calm Speech Pattern: Clear, Appropriate - Laboratory and Diagnostics Result Diagrams: 03/17/19 06:00 03/17/19 06:00 Labs: 03/17/19 07:08 Stool - Final Laboratory WBC 3.4 X10^3/uL (3.6-10.0) L 03/17/19 06:00 RBC 3.07 X10^6/uL (3.5-5.4) L 03/17/19 06:00 Hgb 9.6 g/dL (12.0-16.0) L 03/17/19 06:00 Hct 27.9 % (36.0-47.0) L 03/17/19 06:00 MCV 90.8 fL (80.0-100.0) 03/17/19 06:00 MCH 31.2 pg (27.0-34.0) 03/17/19 06:00 MCHC 34.4 g/dL (33.0-35.0) 03/17/19 06:00 RDW 14.2 % (11.6-16.5) 03/17/19 06:00 Plt Count 212 X10^3/uL (150.0-450.0) 03/17/19 06:00 MPV 7.5 fL (7.4-11.0) 03/17/19 06:00 Neut % (Auto) 67.5 % (42.0-75.0) 03/17/19 06:00 Lymph % (Auto) 20.7 % (21.0-51.0) L 03/17/19 06:00 [place] % (Auto) 9.3 % (0.0-13.0) 03/17/19 06:00 Eos % (Auto) 1.9 % (0.9-2.9) 03/17/19 06:00 Baso % (Auto) 0.6 % (0.2-1.0) 03/17/19 06:00 Neut # (Auto) 2.3 x10^3/uL (2.2-4.8) 03/17/19 06:00 Lymph # (Auto) 0.7 X10^3/uL (1.3-2.9) L 03/17/19 06:00 [place] # (Auto) 0.3 x10^3/uL (0.3-0.8) 03/17/19 06:00 Eos # (Auto) 0.1 x10^3/uL (0.0-0.2) 03/17/19 06:00 Baso # (Auto) 0.0 X10^3/uL (0.0-0.1) 03/17/19 06:00 Absolute Nucleated RBC 0.0 /100WBC 03/17/19 06:00 Sodium 138 mmol/L (136-145) 03/17/19 06:00 Corrected Sodium TNP 03/17/19 06:00 Potassium 3.7 mmol/L (3.5-5.1) 03/17/19 06:00 Chloride 104 mmol/L (98-107) 03/17/19 06:00 Carbon Dioxide 26.1 mmol/L (21-32) 03/17/19 06:00 BUN 4 mg/dL (7-18) L 03/17/19 06:00 Creatinine 0.81 mg/dL (0.55-1.02) 03/17/19 06:00 Est GFR (MDRD) Af Amer > 60 (>60) 03/17/19 06:00 Est GFR (MDRD) Non-Af > 60 (>60) 03/17/19 06:00 Glucose 104 mg/dL (65-99) H 03/17/19 06:00 Calcium 8.4 mg/dL (8.5-10.1) L 03/17/19 06:00 Corrected Calcium 9.4 mg/dL (8.5-10.1) 03/17/19 06:00 Iron 12 ug/dL (50-175) L 03/15/19 06:15 Transferrin 134 mg/dL (202-364) L 03/15/19 06:15 Ferritin 311 ng/mL (8-252) H 03/15/19 06:15 Total Bilirubin 0.20 mg/dL (0.2-1.0) 03/17/19 06:00 AST 43 Units/L (15-37) H 03/17/19 06:00 ALT 25 Units/L (12-78) 03/17/19 06:00 Alkaline Phosphatase 48 Units/L (46-116) 03/17/19 06:00 Total Protein 5.7 g/dL (6.4-8.2) L 03/17/19 06:00 Albumin 2.7 g/dL (3.4-5.0) L 03/17/19 06:00 Globulin 3.0 g/dL (2.5-4.5) 03/17/19 06:00 Albumin/Globulin Ratio 0.9 Ratio (1.1-2.1) L 03/17/19 06:00 Vitamin B12 1661 pg/mL (193-986) H 03/15/19 06:15 Folate 19.5 ng/mL (>8.6) 03/15/19 06:15 Specimen Type Catherized urine 03/12/19 16:27 Urine Color Yellow (YELLOW) 03/12/19 16:27 Urine Appearance Clear (CLEAR) 03/12/19 16:27 Urine pH 7.0 (5.0 - 8.0) 03/12/19 16:27 Ur Specific [place] 1.010 (1.000-1.030) 03/12/19 16:27 Urine Protein Negative (NEGATIVE) 03/12/19 16:27 Urine Glucose (UA) Negative (NEGATIVE) 03/12/19 16:27 Urine Ketones 3+ (NEGATIVE) 03/12/19 16:27 Urine Occult Blood Negative (NEGATIVE) 03/12/19 16:27 Urine Nitrite Negative (NEGATIVE) 03/12/19 16:27 Urine Bilirubin Negative (NEGATIVE) 03/12/19 16:27 Urine Urobilinogen Normal (NORMAL) 03/12/19 16:27 Ur Leukocyte Esterase 1+ (NEGATIVE) 03/12/19 16:27 Urine RBC 0-2 /HPF (0-3) 03/12/19 16:27 Urine WBC 0-2 /HPF (0-5) 03/12/19 16:27 Ur Squamous Epith Cells Rare /HPF (NEGATIVE) 03/12/19 16:27 Urine Bacteria Negative /HPF (NEGATIVE) 03/12/19 16:27 Ur Culture Indicated? No/not indicated 03/12/19 16:27 Stool Description 10g unformed brn sto 03/17/19 07:08 Stl Occult Blood (IFOB) Positive (NEGATIVE) A 03/17/19 07:08 Stool for White Cells Positive (NEGATIVE) A 03/17/19 07:08 Stl C. diff Tox B Gene Negative (NEGATIVE) 03/17/19 07:08 Stl C. diff 027-NAP1-BI Negative (NEGATIVE) 03/17/19 07:08 - Assessment and Plan 1: subsiding acute sigmoid diverticulitis . same plan . full liquid diet . - Problem Patient Problems: Patient Problems Acute diverticulitis (Acute) K57.92
[2019-03-17] MEDS: PEPCID TAB 20 MG PO SCH (21:34)
[2019-03-18] MEDS: FLAGYL IV PREMIX 500 MG BAG 500 MG/100 ML BAG IV SCH ×3 (02:32→14:16)
[2019-03-18] MEDS: NS 1000 ML 1,000 ML IV SCH ×2 (02:41→19:48)
[2019-03-18 05:50] LABS: BASOPHILS % (AUTO) 0.6 % (0.2-1.0); EOSINOPHILS # (AUTO) 0.1 x10^3/uL (0.0-0.2); HEMOGLOBIN 8.7 g/dL (12.0-16.0); LYMPHOCYTES # (AUTO) 0.8 X10^3/uL (1.3-2.9); LYMPHOCYTES % (AUTO) 25.1 % (21.0-51.0); MEAN CORPUSCULAR HEMOGLOBIN 31.2 pg (27.0-34.0); MEAN CORPUSCULAR HGB CONC 34.8 g/dL (33.0-35.0); MEAN CORPUSCULAR VOLUME 89.8 fL (80.0-100.0); MEAN PLATELET VOLUME 7.4 fL (7.4-11.0); MONOCYTES # (AUTO) 0.3 x10^3/uL (0.3-0.8); MONOCYTES % (AUTO) 9.3 % (0.0-13.0); NEUTROPHILS # (AUTO) 1.9 x10^3/uL (2.2-4.8); PLATELET COUNT 211 X10^3/uL (150.0-450.0); RED BLOOD COUNT 2.78 X10^6/uL (3.5-5.4); RED CELL DISTRIBUTION WIDTH 13.8 % (11.6-16.5)
[2019-03-18 06:03] LABS: ALANINE AMINOTRANSFERASE 25 Units/L (12-78); ALBUMIN 2.6 g/dL (3.4-5.0); ALKALINE PHOSPHATASE 45 Units/L (46-116); ASPARTATE AMINO TRANSFERASE 38 Units/L (15-37); BLOOD UREA NITROGEN 4 mg/dL (7-18); CALCIUM 8.5 mg/dL (8.5-10.1); CARBON DIOXIDE 26.5 mmol/L (21-32); CHLORIDE 104 mmol/L (98-107); COR CA(FOR HYPOALB) 9.6 mg/dL (8.5-10.1); CREATININE 0.83 mg/dL (0.55-1.02); SODIUM 139 mmol/L (136-145); TOTAL PROTEIN 5.2 g/dL (6.4-8.2); eGFR NON BLACK RACES > 60 (>60)
[2019-03-18] MEDS: BENTYL CAP 10 MG PO SCH ×4 (08:43→21:35)
[2019-03-18] MEDS: ZESTRIL TAB 5 MG PO SCH (08:43)
[2019-03-18] MEDS: CIPRO IV 400 MG PREMIX* 400 MG/200 ML IV.SOLN. IV SCH (08:43)
[2019-03-18] MEDS: K-DUR TAB 20 MEQ PO PRN (08:43)
[2019-03-18] MEDS: LOVENOX INJ 40 MG SYR SC SCH (08:44)
[2019-03-18] MEDS: MAGNESIUM SULFATE 1 GRAM/100 mL PREMIX 1 GM/100 ML BAG IV PRN ×2 (12:15→13:52)
[2019-03-18] MEDS ORDERED: MILK OF MAGNESIA PO PRN (20:42)
--- NOTE | 2019-03-18 20:58 | DR.PROGNOT ---
Hospital Progress Notes - Progress Note for Day of: Progress Note Date: 03/18/19 - Chief Complaint Chief Complaint: moderate LLQ abdominal pain , no nausea or vomiting . had normal BM . tolerating diet . Hgb low 8.7 .. WBC normal . afebrile . - Past Medical Family Social History Past Med/Fam/Surg Hx: No changes since H&P Allergies: Allergies No Known Drug Allergies Allergy (Verified 03/12/19 18:07) - Review Of Systems ROS: No change since H&P - Vital Signs Vital Signs: Temperature 97.9 F Pulse Rate [Left Radial] 76 Pulse Rate 87 Respiratory Rate 20 Blood Pressure [Right Calf] 132/63 Blood Pressure [Right Arm] 119/58 Blood Pressure [Left Arm] 147/58 Blood Pressure 131/86 O2 Sat by Pulse Oximetry 96 - Physical Exam Oriented: Normal Eyes: Normal Ear: Normal Nose: Normal Throat: Normal Cardiovascular: Normal : Normal GI:Auscultation: Normal GI:Palpation: Normal GI: Tenderness: LLQ, Mild (soft abdomen . BS+. LLQ tenderness , no rebound , no masses felt .) Skin: Normal Musculoskeletal: Normal Psychiatric: Normal Mood Description: Calm Speech Pattern: Clear, Appropriate - Laboratory and Diagnostics Result Diagrams: 03/18/19 04:33 03/18/19 04:33 Labs: 03/17/19 07:08 Stool Stool Culture - Preliminary 03/17/19 07:08 Stool - Final Laboratory WBC 3.0 X10^3/uL (3.6-10.0) L 03/18/19 04:33 RBC 2.78 X10^6/uL (3.5-5.4) L 03/18/19 04:33 Hgb 8.7 g/dL (12.0-16.0) L 03/18/19 04:33 Hct 25.0 % (36.0-47.0) L 03/18/19 04:33 MCV 89.8 fL (80.0-100.0) 03/18/19 04:33 MCH 31.2 pg (27.0-34.0) 03/18/19 04:33 MCHC 34.8 g/dL (33.0-35.0) 03/18/19 04:33 RDW 13.8 % (11.6-16.5) 03/18/19 04:33 Plt Count 211 X10^3/uL (150.0-450.0) 03/18/19 04:33 MPV 7.4 fL (7.4-11.0) 03/18/19 04:33 Neut % (Auto) 63.0 % (42.0-75.0) 03/18/19 04:33 Lymph % (Auto) 25.1 % (21.0-51.0) 03/18/19 04:33 [place] % (Auto) 9.3 % (0.0-13.0) 03/18/19 04:33 Eos % (Auto) 2.0 % (0.9-2.9) 03/18/19 04:33 Baso % (Auto) 0.6 % (0.2-1.0) 03/18/19 04:33 Neut # (Auto) 1.9 x10^3/uL (2.2-4.8) L 03/18/19 04:33 Lymph # (Auto) 0.8 X10^3/uL (1.3-2.9) L 03/18/19 04:33 [place] # (Auto) 0.3 x10^3/uL (0.3-0.8) 03/18/19 04:33 Eos # (Auto) 0.1 x10^3/uL (0.0-0.2) 03/18/19 04:33 Baso # (Auto) 0.0 X10^3/uL (0.0-0.1) 03/18/19 04:33 Absolute Nucleated RBC 0.2 /100WBC 03/18/19 04:33 Sodium 139 mmol/L (136-145) 03/18/19 04:33 Corrected Sodium TNP 03/18/19 04:33 Potassium 3.4 mmol/L (3.5-5.1) L 03/18/19 04:33 Chloride 104 mmol/L (98-107) 03/18/19 04:33 Carbon Dioxide 26.5 mmol/L (21-32) 03/18/19 04:33 BUN 4 mg/dL (7-18) L 03/18/19 04:33 Creatinine 0.83 mg/dL (0.55-1.02) 03/18/19 04:33 Est GFR (MDRD) Af Amer > 60 (>60) 03/18/19 04:33 Est GFR (MDRD) Non-Af > 60 (>60) 03/18/19 04:33 Glucose 104 mg/dL (65-99) H 03/18/19 04:33 Calcium 8.5 mg/dL (8.5-10.1) 03/18/19 04:33 Corrected Calcium 9.6 mg/dL (8.5-10.1) 03/18/19 04:33 Magnesium 1.4 mg/dL (1.7-2.9) L 03/18/19 04:33 Iron 12 ug/dL (50-175) L 03/15/19 06:15 Transferrin 134 mg/dL (202-364) L 03/15/19 06:15 Ferritin 311 ng/mL (8-252) H 03/15/19 06:15 Total Bilirubin 0.20 mg/dL (0.2-1.0) 03/18/19 04:33 AST 38 Units/L (15-37) H 03/18/19 04:33 ALT 25 Units/L (12-78) 03/18/19 04:33 Alkaline Phosphatase 45 Units/L (46-116) L 03/18/19 04:33 Total Protein 5.2 g/dL (6.4-8.2) L 03/18/19 04:33 Albumin 2.6 g/dL (3.4-5.0) L 03/18/19 04:33 Globulin 2.6 g/dL (2.5-4.5) 03/18/19 04:33 Albumin/Globulin Ratio 1.0 Ratio (1.1-2.1) L 03/18/19 04:33 Vitamin B12 1661 pg/mL (193-986) H 03/15/19 06:15 Folate 19.5 ng/mL (>8.6) 03/15/19 06:15 Specimen Type Catherized urine 03/12/19 16:27 Urine Color Yellow (YELLOW) 03/12/19 16:27 Urine Appearance Clear (CLEAR) 03/12/19 16:27 Urine pH 7.0 (5.0 - 8.0) 03/12/19 16:27 Ur Specific [place] 1.010 (1.000-1.030) 03/12/19 16:27 Urine Protein Negative (NEGATIVE) 03/12/19 16:27 Urine Glucose (UA) Negative (NEGATIVE) 03/12/19 16:27 Urine Ketones 3+ (NEGATIVE) 03/12/19 16:27 Urine Occult Blood Negative (NEGATIVE) 03/12/19 16:27 Urine Nitrite Negative (NEGATIVE) 03/12/19 16:27 Urine Bilirubin Negative (NEGATIVE) 03/12/19 16:27 Urine Urobilinogen Normal (NORMAL) 03/12/19 16:27 Ur Leukocyte Esterase 1+ (NEGATIVE) 03/12/19 16:27 Urine RBC 0-2 /HPF (0-3) 03/12/19 16:27 Urine WBC 0-2 /HPF (0-5) 03/12/19 16:27 Ur Squamous Epith Cells Rare /HPF (NEGATIVE) 03/12/19 16:27 Urine Bacteria Negative /HPF (NEGATIVE) 03/12/19 16:27 Ur Culture Indicated? No/not indicated 03/12/19 16:27 Stool Description 10g unformed brn sto 03/17/19 07:08 Stl Occult Blood (IFOB) Positive (NEGATIVE) A 03/17/19 07:08 Stool for White Cells Positive (NEGATIVE) A 03/17/19 07:08 Stl C. diff Tox B Gene Negative (NEGATIVE) 03/17/19 07:08 Stl C. diff 027-NAP1-BI Negative (NEGATIVE) 03/17/19 07:08 - Assessment and Plan 1: could be dischareged on oral ATB . will follow in the office next week . - Problem Patient Problems: Patient Problems Acute diverticulitis (Acute) K57.92
[2019-03-18] MEDS: FLAGYL TAB 500 MG PO SCH (21:35)
[2019-03-18] MEDS: CIPRO TAB 500 MG PO SCH (21:36)
[2019-03-18] MEDS: PEPCID TAB 20 MG PO SCH (21:36)
[2019-03-19 05:47] LABS: ALANINE AMINOTRANSFERASE 27 Units/L (12-78); ALBUMIN 2.6 g/dL (3.4-5.0); ALKALINE PHOSPHATASE 45 Units/L (46-116); ASPARTATE AMINO TRANSFERASE 47 Units/L (15-37); BLOOD UREA NITROGEN 4 mg/dL (7-18); CALCIUM 8.5 mg/dL (8.5-10.1); CARBON DIOXIDE 27.2 mmol/L (21-32); CHLORIDE 103 mmol/L (98-107); COR CA(FOR HYPOALB) 9.6 mg/dL (8.5-10.1); CREATININE 0.84 mg/dL (0.55-1.02); SODIUM 138 mmol/L (136-145); TOTAL PROTEIN 5.3 g/dL (6.4-8.2); eGFR NON BLACK RACES > 60 (>60)
[2019-03-19 05:56] LABS: BASOPHILS % (AUTO) 0.6 % (0.2-1.0); EOSINOPHILS # (AUTO) 0.1 x10^3/uL (0.0-0.2); EOSINOPHILS % (AUTO) 2.4 % (0.9-2.9); HEMATOCRIT 25.3 % (36.0-47.0); HEMOGLOBIN 8.9 g/dL (12.0-16.0); LYMPHOCYTES # (AUTO) 0.8 X10^3/uL (1.3-2.9); LYMPHOCYTES % (AUTO) 28.6 % (21.0-51.0); MEAN CORPUSCULAR HEMOGLOBIN 31.5 pg (27.0-34.0); MEAN CORPUSCULAR VOLUME 89.9 fL (80.0-100.0); MEAN PLATELET VOLUME 7.3 fL (7.4-11.0); MONOCYTES # (AUTO) 0.3 x10^3/uL (0.3-0.8); MONOCYTES % (AUTO) 9.1 % (0.0-13.0); NEUTROPHILS # (AUTO) 1.7 x10^3/uL (2.2-4.8); NEUTROPHILS % (AUTO) 59.3 % (42.0-75.0); PLATELET COUNT 231 X10^3/uL (150.0-450.0); RED BLOOD COUNT 2.81 X10^6/uL (3.5-5.4); RED CELL DISTRIBUTION WIDTH 13.9 % (11.6-16.5); WHITE BLOOD COUNT 2.9 X10^3/uL (3.6-10.0)
[2019-03-19] MEDS: FLAGYL TAB 500 MG PO SCH (06:05)
[2019-03-19] MEDS: BENTYL CAP 10 MG PO SCH (08:39)
[2019-03-19] MEDS: CIPRO TAB 500 MG PO SCH (08:39)
[2019-03-19] MEDS: K-DUR TAB 20 MEQ PO PRN (08:39)
[2019-03-19] MEDS: ZESTRIL TAB 5 MG PO SCH (08:39)
[2019-03-19] MEDS: LOVENOX INJ 40 MG SYR SC SCH (08:43)
--- NOTE | 2019-03-19 09:33 | DR.PROGNOT ---
Hospital Progress Notes - Progress Note for Day of: Progress Note Date: 03/19/19 - Chief Complaint Chief Complaint: mild LLQ abdominal pain , no nausea or vomiting . had normal BM . tolerating diet . Hgb low 8.7 .. WBC normal . afebrile . - Past Medical Family Social History Past Med/Fam/Surg Hx: No changes since H&P Allergies: Allergies No Known Drug Allergies Allergy (Verified 03/12/19 18:07) - Review Of Systems ROS: No change since H&P - Vital Signs Vital Signs: Temperature 98.2 F Pulse Rate [Left Radial] 63 Pulse Rate 87 Respiratory Rate 18 Blood Pressure [Right Calf] 132/63 Blood Pressure [Right Arm] 163/62 Blood Pressure [Left Arm] 147/58 Blood Pressure 131/86 O2 Sat by Pulse Oximetry 97 - Physical Exam Oriented: Normal Eyes: Normal Ear: Normal Nose: Normal Throat: Normal Cardiovascular: Normal : Normal GI:Auscultation: Normal GI:Palpation: Normal GI: Tenderness: LLQ, Mild (soft abdomen . BS+. LLQ tenderness , no rebound , no masses felt .) Skin: Normal Musculoskeletal: Normal Psychiatric: Normal Mood Description: Calm Speech Pattern: Clear, Appropriate - Laboratory and Diagnostics Result Diagrams: 03/19/19 04:48 03/19/19 04:48 Labs: 03/17/19 07:08 Stool Stool Culture - Preliminary 03/17/19 07:08 Stool - Final Laboratory WBC 2.9 X10^3/uL (3.6-10.0) L 03/19/19 04:48 RBC 2.81 X10^6/uL (3.5-5.4) L 03/19/19 04:48 Hgb 8.9 g/dL (12.0-16.0) L 03/19/19 04:48 Hct 25.3 % (36.0-47.0) L 03/19/19 04:48 MCV 89.9 fL (80.0-100.0) 03/19/19 04:48 MCH 31.5 pg (27.0-34.0) 03/19/19 04:48 MCHC 35.0 g/dL (33.0-35.0) 03/19/19 04:48 RDW 13.9 % (11.6-16.5) 03/19/19 04:48 Plt Count 231 X10^3/uL (150.0-450.0) 03/19/19 04:48 MPV 7.3 fL (7.4-11.0) L 03/19/19 04:48 Neut % (Auto) 59.3 % (42.0-75.0) 03/19/19 04:48 Lymph % (Auto) 28.6 % (21.0-51.0) 03/19/19 04:48 [place] % (Auto) 9.1 % (0.0-13.0) 03/19/19 04:48 Eos % (Auto) 2.4 % (0.9-2.9) 03/19/19 04:48 Baso % (Auto) 0.6 % (0.2-1.0) 03/19/19 04:48 Neut # (Auto) 1.7 x10^3/uL (2.2-4.8) L 03/19/19 04:48 Lymph # (Auto) 0.8 X10^3/uL (1.3-2.9) L 03/19/19 04:48 [place] # (Auto) 0.3 x10^3/uL (0.3-0.8) 03/19/19 04:48 Eos # (Auto) 0.1 x10^3/uL (0.0-0.2) 03/19/19 04:48 Baso # (Auto) 0.0 X10^3/uL (0.0-0.1) 03/19/19 04:48 Absolute Nucleated RBC 0.1 /100WBC 03/19/19 04:48 Sodium 138 mmol/L (136-145) 03/19/19 04:48 Corrected Sodium TNP 03/19/19 04:48 Potassium 3.6 mmol/L (3.5-5.1) 03/19/19 04:48 Chloride 103 mmol/L (98-107) 03/19/19 04:48 Carbon Dioxide 27.2 mmol/L (21-32) 03/19/19 04:48 BUN 4 mg/dL (7-18) L 03/19/19 04:48 Creatinine 0.84 mg/dL (0.55-1.02) 03/19/19 04:48 Est GFR (MDRD) Af Amer > 60 (>60) 03/19/19 04:48 Est GFR (MDRD) Non-Af > 60 (>60) 03/19/19 04:48 Glucose 108 mg/dL (65-99) H 03/19/19 04:48 Calcium 8.5 mg/dL (8.5-10.1) 03/19/19 04:48 Corrected Calcium 9.6 mg/dL (8.5-10.1) 03/19/19 04:48 Magnesium 1.7 mg/dL (1.7-2.9) 03/19/19 04:48 Iron 12 ug/dL (50-175) L 03/15/19 06:15 Transferrin 134 mg/dL (202-364) L 03/15/19 06:15 Ferritin 311 ng/mL (8-252) H 03/15/19 06:15 Total Bilirubin 0.20 mg/dL (0.2-1.0) 03/19/19 04:48 AST 47 Units/L (15-37) H 03/19/19 04:48 ALT 27 Units/L (12-78) 03/19/19 04:48 Alkaline Phosphatase 45 Units/L (46-116) L 03/19/19 04:48 Total Protein 5.3 g/dL (6.4-8.2) L 03/19/19 04:48 Albumin 2.6 g/dL (3.4-5.0) L 03/19/19 04:48 Globulin 2.7 g/dL (2.5-4.5) 03/19/19 04:48 Albumin/Globulin Ratio 1.0 Ratio (1.1-2.1) L 03/19/19 04:48 Vitamin B12 1661 pg/mL (193-986) H 03/15/19 06:15 Folate 19.5 ng/mL (>8.6) 03/15/19 06:15 Specimen Type Catherized urine 03/12/19 16:27 Urine Color Yellow (YELLOW) 03/12/19 16:27 Urine Appearance Clear (CLEAR) 03/12/19 16:27 Urine pH 7.0 (5.0 - 8.0) 03/12/19 16:27 Ur Specific [place] 1.010 (1.000-1.030) 03/12/19 16:27 Urine Protein Negative (NEGATIVE) 03/12/19 16:27 Urine Glucose (UA) Negative (NEGATIVE) 03/12/19 16:27 Urine Ketones 3+ (NEGATIVE) 03/12/19 16:27 Urine Occult Blood Negative (NEGATIVE) 03/12/19 16:27 Urine Nitrite Negative (NEGATIVE) 03/12/19 16:27 Urine Bilirubin Negative (NEGATIVE) 03/12/19 16:27 Urine Urobilinogen Normal (NORMAL) 03/12/19 16:27 Ur Leukocyte Esterase 1+ (NEGATIVE) 03/12/19 16:27 Urine RBC 0-2 /HPF (0-3) 03/12/19 16:27 Urine WBC 0-2 /HPF (0-5) 03/12/19 16:27 Ur Squamous Epith Cells Rare /HPF (NEGATIVE) 03/12/19 16:27 Urine Bacteria Negative /HPF (NEGATIVE) 03/12/19 16:27 Ur Culture Indicated? No/not indicated 03/12/19 16:27 Stool Description 10g unformed brn sto 03/17/19 07:08 Stl Occult Blood (IFOB) Positive (NEGATIVE) A 03/17/19 07:08 Stool for White Cells Positive (NEGATIVE) A 03/17/19 07:08 Stl C. diff Tox B Gene Negative (NEGATIVE) 03/17/19 07:08 Stl C. diff 027-NAP1-BI Negative (NEGATIVE) 03/17/19 07:08 - Assessment and Plan 1: resolving acute sigmoid diverticulitis and UTI . anemia . could be dischareged on oral ATB . soft diet. will follow in the office next week . - Problem Patient Problems: Patient Problems Acute diverticulitis (Acute) K57.92
[2019-03-19 11:09] VITALS: BP 168/79
== END 2019-03-19 11:25 | disposition home or self-care (01) | DRG 392 ==
LOC: ER 13:47 → MED/SURG 18:13
PROVIDERS: ADMIT Internal Medicine; ATTEND Internal Medicine
DX: K57.32 Diverticulitis of large intestine without perforation or abscess without bleeding; R10.9 Unspecified abdominal pain; F03.90 Unspecified dementia, unspecified severity, without behavioral disturbance, psychotic disturbance, mood disturbance, and anxiety; K21.9 Gastro-esophageal reflux disease without esophagitis; K59.00 Constipation, unspecified; K62.89 Other specified diseases of anus and rectum; Z87.440 Personal history of urinary (tract) infections; I10 Essential (primary) hypertension
CPT/HCPCS: 36415; 51701; 74022; 74176; 74177; 80048; 80053; 81001; 82270; 82607; 82728; 82746; 83540; 83630; 83735; 84466; 85025; 87045; 87427; 87449; 87493; 87899; 96367; 96374; 96375; 97116; 97162; 97530; 99221; 99231; A4222; S0030; J0744; J1650; J1756; J2405; J3475; J3490; J7030; J7050

== ENCOUNTER 2020-07-16 05:32 | Inpatient (IN) ==
[2020-07-16 06:03] VITALS: BMI 17.6
--- NOTE | 2020-07-16 06:17 | ED.ABDFE ---
HPI Time Seen Time Seen by Provider: 07/16/20 06:03 PCP Primary Care Physician: joseph HPI Comment HPI Comment: PATIENT IS 89YR OLD FEMALE IN ER WITH BELOW COMPLAINTS. Complaint Doctors Chief Complaint Comments: ABDOMINAL PAIN WITH NAUSEA, VOMITING AND DIARRHEA AND FEVER TIMES ONE DAY. PATIENT IS HAVING CRAMPING PAIN 6/10 RADIATING TO THE BACK. WORSE TODAY. PATIENT IS WEAK AND TIRED. Chief Complaint:: pt c/o abd pain n/v/d fever exposed to covid , weakness hypotensive dehydration COVID-19 Coronavirus risk:travel/contact w/high risk person: No Has patient experienced Coronavirus symptoms: No Reviewed Nurses Notes Review: Yes Source History Provided: Patient Mode of arrival Mode of Arrival: Ambulatory Timing Onset of Chief Complaint: 07/15/20 Came on: Suddenly Duration Since Onset: Constant Duration: Hours Location Location: Diffuse Severity Severity: Moderate Quality Quality: Cramping and Sharp Context History of: None Modifying factors Worsening Factors: Exertion Improving Factors: Lying Still Associated signs and symptoms Associated Signs and Symptoms: Nausea, Vomiting and Diarrhea PMH PMH Past Medical History: Yes Past Medical History: Hypertension Past Surgical History: Yes Surgical History: Cholecystectomy, Hysterectomy, Tonsillectomy and Other Family History History of Family Medical Conditions: Yes Family Medical History: Cancer and Hypertension Social History Alcohol Use: None Do you use any recreational Drugs:: No Lives With: Family Lives Where: Home Infectious screening In the last 2 months have you had wt loss of >10#?: NO Have you had fever, night sweats or hemotysis?: No Have you traveled outside the country in the last 6 months?: No Isolation: Droplet ROS Review of Systems Constitutional: See HPI, Fever, Weakness and Fatigue Eyes: No Symptoms Reported and See HPI ENTM: No Symptoms Reported and See HPI; negative Nose Discharge and Nose Congestion Respiratoy: No Symptoms Reported and See HPI; negative Moist Cough, Short of Breath and Wheezing Cardiovascular: No Symptoms Reported and See HPI Gastrointestinal/Abdominal: See HPI, Abdominal Pain, Diarrhea, Nausea and Vomiting Genitourinary: No Symptoms Reported and See HPI; negative Dysuria and Hematuria Neurological: See HPI and Weakness; negative Headache and Dizziness Musculoskeletal: No Symptoms Reported and See HPI; negative Back Pain and Muscle Pain Integumentary: No Symptoms Reported and See HPI; negative Change in Color, Rash and Juandice Hematologic/Lymphatic: No Symptoms Reported and See HPI; negative Easy Bruising and Swollen Glands Endocrine: No Symptoms Reported and See HPI; negative Increased Thirst and Increased Urine Psychiatric: No Symptoms Reported and See HPI All Other Systems: Reviewed and Negative PE Vital Signs Vitals: Temperature 98.3 F Pulse Rate [Left] 113 Pulse Rate 112 Respiratory Rate 26 Blood Pressure [Right Calf] 132/63 Blood Pressure [Right Arm] 96/53 Blood Pressure 100/55 O2 Sat by Pulse Oximetry 99 General Limitations: No Limitations General Appearance: Alert and In No Apparent Distress Head Head Exam: Normal Inspection Eyes Eye exam: Normal Appearance and PERRL; negative Scleral Icterus and Conjunctival Injection ENT ENT Exam: Normal Exam, Normal Oropharynx, Normal External Ear Exam and TM's Normal Bilaterally Neck Neck Exam: Normal Inspection and Trachea Midline; negative Tenderness and Lymphadenopathy Chest Chest Inspection: Normal Inspection and Symmetric Chest Wall Rise; negative Tenderness Respiratory Respiratory Exam: Normal Lung Sounds Bilat; negative Accessory Muscle Use, Chest Wall Tenderness and Respiratory Distress Respiratory Exam: Bilateral: Rhonchi and Lower: Rhonchi Cardiovascular Cardiovascular Exam: Normal Rhythm, Tachycardia and Normal Heart Sounds; negative Systolic Murmur and Diastolic Murmur Abdominal Exam Abdominal Exam: Normal Bowel Sounds, Soft and Tenderness Abdominal Tenderness: Diffuse and Moderate Rectal Rectal Exam: Deferred Back Back Exam: Normal Inspection; negative (R) CVA Tenderness and (L) CVA Tenderness Extremeties Extremities Exam: Normal Inspection and Normal Capillary Refill External Exam: Female: Deferred : Speculum Exam (Female): Deferred : Bimanual Exam (female): Deferred Neurologic Neurological Exam: Alert, Oriented X3 and CN II-XII Intact; negative Motor Sensory Deficit Psychiatric Psychiatric Exam: Normal Affect and Normal Mood Skin Skin Exam: Dry MDM Additional Information Obtained From Additional information provided by: Old Records Differential Diagnosis Differential Diagnosis- Considerations may include:: Bowel Obstruction, Cholcystitis, Cholelethiasis, Constipation, Diverticular disease, Gastritus/PUD, Hernia (DEHYDRATION, PNEUMONIA, COVID 19 VIRUS INFECTION.), Pancreatitis, Urinary obstruction and Urolithiasis COURSE Treatment Treatment: SEE ORDERS. NS 1L IV BOLUD, PEPCID 20MG IVPB, ZOFRAN, 4MG IV AND DEMOROL 25MG IV IN ER. Reevaluation 1st: Improved Consultation Consultation Comments: PATIENT IS ADMITTED BY DR. MORALES. Education/Counseling Education/Counseling: Patient Educated On: Diagnosis ROR Labs Reviewed Laboratory Results Reviewed?: Yes Result Diagrams: 07/25/20 05:15 07/25/20 05:15 Laboratory: 07/16/20 06:48 Blood Blood Culture - Final 07/16/20 06:40 Blood Blood Culture - Final 07/16/20 08:46 Urine,Catheterized Urine Culture - Final WBC 23.6 X10^3/uL (3.6-10.0) H 07/16/20 06:48 RBC 3.67 X10^6/uL (3.5-5.4) 07/16/20 06:48 Hgb 11.4 g/dL (12.0-16.0) L 07/16/20 06:48 Hct 34.6 % (36.0-47.0) L 07/16/20 06:48 MCV 94.3 fL (80.0-100.0) 07/16/20 06:48 MCH 31.1 pg (27.0-34.0) 07/16/20 06:48 MCHC 33.0 g/dL (33.0-35.0) 07/16/20 06:48 RDW 14.3 % (11.6-16.5) 07/16/20 06:48 Plt Count 359 X10^3/uL (150.0-450.0) 07/16/20 06:48 Plt Count Comment Adequate (ADEQUATE) 07/16/20 06:48 MPV 7.7 fL (7.4-11.0) 07/16/20 06:48 Neut % (Auto) 93.0 % (42.0-75.0) H 07/16/20 06:48 Lymph % (Auto) 2.2 % (21.0-51.0) L 07/16/20 06:48 Ray % (Auto) 4.5 % (0.0-13.0) 07/16/20 06:48 Eos % (Auto) 0.0 % (0.9-2.9) L 07/16/20 06:48 Baso % (Auto) 0.3 % (0.2-1.0) 07/16/20 06:48 Neut # (Auto) 21.9 x10^3/uL (2.2-4.8) H 07/16/20 06:48 Lymph # (Auto) 0.5 X10^3/uL (1.3-2.9) L 07/16/20 06:48 Ray # (Auto) 1.1 x10^3/uL (0.3-0.8) H 07/16/20 06:48 Eos # (Auto) 0.0 x10^3/uL (0.0-0.2) 07/16/20 06:48 Baso # (Auto) 0.1 X10^3/uL (0.0-0.1) 07/16/20 06:48 Absolute Nucleated RBC 0.1 /100WBC 07/16/20 06:48 Total Counted 100 07/16/20 06:48 Neutrophils % (Manual) 78 % (39-76) H 07/16/20 06:48 Band Neutrophils % 9 % (0-10) 07/16/20 06:48 Lymphocytes % (Manual) 3 % (13-43) L 07/16/20 06:48 Monocytes % (Manual) 10 % (4-9) H 07/16/20 06:48 Plt Morphology Comment Normal (NORMAL) 07/16/20 06:48 RBC Morphology Normal (NORMAL) 07/16/20 06:48 D-Dimer 3.49 ug/ml (0.0-0.57) H* 07/16/20 09:07 Sodium 126 mmol/L (136-145) L 07/16/20 06:48 Corrected Sodium TNP 07/16/20 06:48 Potassium 4.4 mmol/L (3.5-5.1) 07/16/20 06:48 Chloride 94 mmol/L (98-107) L 07/16/20 06:48 Carbon Dioxide 16.5 mmol/L (21-32) L 07/16/20 06:48 BUN 17 mg/dL (7-18) 07/16/20 06:48 Creatinine 1.06 mg/dL (0.55-1.02) H 07/16/20 06:48 Est GFR (MDRD) Af Amer > 60 (>60) 07/16/20 06:48 Est GFR (MDRD) Non-Af 52 (>60) L 07/16/20 06:48 Glucose 89 mg/dL (65-99) 07/16/20 06:48 Lactic Acid 3.8 mmol/L (0.4-2.0) H 07/16/20 06:48 Lactic Acid Cancelled 07/16/20 06:48 Calcium 8.7 mg/dL (8.5-10.1) 07/16/20 06:48 Corrected Calcium 9.8 mg/dL (8.5-10.1) 07/16/20 06:48 Ferritin 768 ng/mL (8-252) H 07/16/20 06:48 Total Bilirubin 0.80 mg/dL (0.2-1.0) 07/16/20 06:48 AST 27 Units/L (15-37) 07/16/20 06:48 ALT 15 Units/L (12-78) 07/16/20 06:48 Alkaline Phosphatase 37 Units/L (46-116) L 07/16/20 06:48 Creatine Kinase 57 Units/L (26-192) 07/16/20 06:48 CK-MB (CK-2) < 1.0 ng/mL (0-4.0) 07/16/20 06:48 CK/CKMB % Calc 1.8 % (<4) 07/16/20 06:48 Troponin I < 0.02 ng/mL (0-1.5) 07/16/20 06:48 C-Reactive Protein 62.30 mg/L (0-3.0) H 07/16/20 06:48 B-Natriuretic Peptide 144 pg/mL (0-79) H 07/16/20 09:07 Total Protein 5.9 g/dL (6.4-8.2) L 07/16/20 06:48 Albumin 2.6 g/dL (3.4-5.0) L 07/16/20 06:48 Globulin 3.3 g/dL (2.5-4.5) 07/16/20 06:48 Albumin/Globulin Ratio 0.8 Ratio (1.1-2.1) L 07/16/20 06:48 Amylase 50 Units/L (25-115) 07/16/20 06:48 Amylase Cancelled 07/16/20 06:48 Lipase 108 Units/L (73-393) 07/16/20 06:48 Lipase Cancelled 07/16/20 06:48 Specimen Type Catherized urine 07/16/20 08:46 Urine Color Yellow (YELLOW) 07/16/20 08:46 Urine Appearance Clear (CLEAR) 07/16/20 08:46 Urine pH 6.0 (5.0 - 8.0) 07/16/20 08:46 Ur Specific [place] 1.015 (1.000-1.030) 07/16/20 08:46 Urine Protein 2+ (NEGATIVE) 07/16/20 08:46 Urine Glucose (UA) Negative (NEGATIVE) 07/16/20 08:46 Urine Ketones Negative (NEGATIVE) 07/16/20 08:46 Urine Occult Blood Negative (NEGATIVE) 07/16/20 08:46 Urine Nitrite Negative (NEGATIVE) 07/16/20 08:46 Urine Bilirubin Negative (NEGATIVE) 07/16/20 08:46 Urine Urobilinogen Normal (NORMAL) 07/16/20 08:46 Ur Leukocyte Esterase 1+ (NEGATIVE) 07/16/20 08:46 Urine RBC 0-2 /HPF (0-3) 07/16/20 08:46 Urine WBC 0-2 /HPF (0-5) 07/16/20 08:46 Ur Squamous Epith Cells Rare /HPF (NEGATIVE) 07/16/20 08:46 Amorphous Sediment Trace /HPF (NEGATIVE) 07/16/20 08:46 Urine Bacteria Trace /HPF (NEGATIVE) 07/16/20 08:46 Ur Culture Indicated? Yes/culture set up 07/16/20 08:46 SARS CoV-2 RNA Rapid JULIET Positive (NEGATIVE) A 07/16/20 06:02 XRAY XRAY Interpreted by: Radiologist (REPORT NOTED ) and Self EKG Rate: 114 [place]: Normal Rhythm: ST and PVCs Block: None Hypertrophy: None ST: Old, Ant, Ischemia, Infarct and Nonsp Opioid Opioid Risk Tool Age (Emiliano box if 16-45): No Total: 0 Total Score Risk Category: Low Risk Copyright: Diaz predicting aberrant behaviors Diagnosis Discharge Problem: Acute dehydration, COVID-19 virus infection Diarrhea Qualifiers: Diarrhea type: unspecified type Qualified Code(s): R19.7 - Diarrhea, unspecified Instructions Instructions: Droplet Precautions Clostridium Difficile Infection, [id number] Contact Precautions Hospice Viral Respiratory Infection Forms: Excuse From Work or School Precautions for COVID19 Patient Portal Social Distancing
[2020-07-16] MEDS ORDERED: NS 1000 ML 1,000 ML IV SCH (07:00)
[2020-07-16 07:20] LABS: BASOPHILS # (AUTO) 0.1 X10^3/uL (0.0-0.1); BASOPHILS % (AUTO) 0.3 % (0.2-1.0); HEMATOCRIT 34.6 % (36.0-47.0); HEMOGLOBIN 11.4 g/dL (12.0-16.0); LYMPHOCYTES # (AUTO) 0.5 X10^3/uL (1.3-2.9); LYMPHOCYTES % (AUTO) 2.2 % (21.0-51.0); MEAN CORPUSCULAR HEMOGLOBIN 31.1 pg (27.0-34.0); MEAN CORPUSCULAR VOLUME 94.3 fL (80.0-100.0); MEAN PLATELET VOLUME 7.7 fL (7.4-11.0); MONOCYTES # (AUTO) 1.1 x10^3/uL (0.3-0.8); MONOCYTES % (AUTO) 4.5 % (0.0-13.0); NEUTROPHILS # (AUTO) 21.9 x10^3/uL (2.2-4.8); PLATELET COUNT 359 X10^3/uL (150.0-450.0); RED BLOOD COUNT 3.67 X10^6/uL (3.5-5.4); RED CELL DISTRIBUTION WIDTH 14.3 % (11.6-16.5); WHITE BLOOD COUNT 23.6 X10^3/uL (3.6-10.0)
[2020-07-16 07:23] LABS: BLOOD UREA NITROGEN 17 mg/dL (7-18); CALCIUM 8.7 mg/dL (8.5-10.1); CARBON DIOXIDE 16.5 mmol/L (21-32); CHLORIDE 94 mmol/L (98-107); CREATININE 1.06 mg/dL (0.55-1.02); SODIUM 126 mmol/L (136-145); eGFR NON BLACK RACES 52 (>60)
[2020-07-16 07:31] LABS: ALANINE AMINOTRANSFERASE 15 Units/L (12-78); ALBUMIN 2.6 g/dL (3.4-5.0); ALKALINE PHOSPHATASE 37 Units/L (46-116); AMYLASE 50 Units/L (25-115); ASPARTATE AMINO TRANSFERASE 27 Units/L (15-37); COR CA(FOR HYPOALB) 9.8 mg/dL (8.5-10.1); LACTIC ACID 3.8 mmol/L (0.4-2.0); LIPASE 108 Units/L (73-393); TOTAL PROTEIN 5.9 g/dL (6.4-8.2)
[2020-07-16] MEDS ORDERED: NS 1000 ML 1,000 ML ONE (07:44)
[2020-07-16 07:45] LABS: BAND NEUTROPHILS % 9 % (0-10)
[2020-07-16 07:46] LABS: PLATELET MORPHOLOGY COMMENT NORMAL (NORMAL)
[2020-07-16 08:24] LABS: CKMB % 1.8 % (<4); CREATINE KINASE 57 Units/L (26-192); CREATINE KINASE MB < 1.0 ng/mL (0-4.0); TROPONIN I < 0.02 ng/mL (0-1.5)
[2020-07-16 08:53] LABS: BILIRUBIN,URINE NEGATIVE (NEGATIVE); BLOOD/HEMOGLOBIN,URINE NEGATIVE (NEGATIVE); GLUCOSE, URINE NEGATIVE (NEGATIVE); KETONES,URINE NEGATIVE (NEGATIVE); LEUKOCYTE ESTERASE ,URINE 1+ (NEGATIVE); NITRITES,URINE NEGATIVE (NEGATIVE); PROTEIN,URINE 2+ (NEGATIVE); UROBILINOGEN,URINE NORMAL (NORMAL)
[2020-07-16 08:54] LABS: APPEARANCE,URINE CLEAR (CLEAR); COLOR,URINE YELLOW (YELLOW)
--- NOTE | 2020-07-16 08:57 | RAD ---
HISTORYShortness of breathSTUDYChest AP [id number] heart is within normal limits in size. The tiesha are normal. The lungs are well inflated and free of acute alveolar infiltrates. Mild chronic appearing interstitial lung changes are present. No pleural effusions are identified. Bony thorax is unremarkable.IMPRESSIONBilateral mild interstitial lung changes likely chronicNo definite acute infiltratesElectronically signed by: SHAKILA BRAN (Jul 16, 2020 08:55:51)
[2020-07-16 09:01] LABS: RBC,URINE 0-2 /HPF (0-3)
[2020-07-16] MEDS ORDERED: ZOFRAN INJ 4 MG VIAL ONE ×2 (09:03→14:31)
[2020-07-16] MEDS ORDERED: DEMEROL INJ ONE (09:03)
[2020-07-16 09:10] LABS: AMORPHOUS SEDIMENT,UR TRACE /HPF (NEGATIVE); BACTERIA,URINE TRACE /HPF (NEGATIVE); SQUAMOUS EPITHELIAL CELL,UR RARE /HPF (NEGATIVE)
--- NOTE | 2020-07-16 09:10 | CT ---
HISTORYAbdominal painSTUDYCT abdomen pelvis without contrastTechnique: Axial noncontrast images with coronal and sagittal reformats. Dose reduction procedures were used with mA/kv adjusted for body size. THIS EXAMINATION IS LIMITED DUE TO THE LACK OF INTRAVENOUS AND ORAL CONTRAST. The examination was performed in this manner at the SOLE discretion of the ordering caregiver and without input from Radiology.[id number]/2019FINDINGSBibasilar peribronchial infiltrates are identified. Suggestive of developing bronchopneumonia. Clinical correlation is recommended. There is a small hiatal hernia p resent. The liver, spleen, adrenal glands, and pancreas are within normal limits only to the limitati ons of an unenhanced examination. The kidneys are unobstructed. No right renal calculi are identified . There is a punctate nonobstructing left upper pole renal calculus. There is a left renal cyst prese nt. No ureteral calculi are identified. Calcific atherosclerotic change is present in an ectatic but nondilated abdominal aorta. No enlarged intraperitoneal or retroperitoneal lymphadenopathy is identif ied. The appendix is not identified with absolute certainty. There are no secondary signs of appendic itis present. There are no findings suggestive of enteritis. The colon is mildly distended cecum to r ectum. It is filled with a large amount of fluid which can be seen with diarrhea. Historical correlat ion is recommended. There are no definite findings suggestive of colitis or diverticulitis. Examinati on of the pelvis demonstrated no evidence for pelvic masses, pelvic fluid, or pelvic lymphadenopathy. There is a Jewell catheter draining the bladder. No lytic or blastic skeletal lesions of significance are identified.IMPRESSIONExam limited due to the lack of intravenous and oral contrast.Bibasilar per ibronchial lung infiltrates suggestive of developing bronchopneumonia. Clinical correlation is recomm ended.Mild dilatation of the colon which is filled with fluid cecum to rectum which can be seen with diarrheal illness. Historical correlation is recommended.Tiny nonobstructing left upper pole renal ca lculusElectronically signed by: SHAKILA BRAN (Jul 16, 2020 09:08:30)
[2020-07-16] MEDS ORDERED: PEPCID 20 MG IV PREMIX* 20 MG/50 ML BAG IV PRN (10:08)
[2020-07-16 10:21] LABS: ABG BASE EXCESS -6.2 mmol/L (-2.0-2.0)
--- NOTE | 2020-07-16 11:07 | CT ---
HISTORYCOVID, ELEVATED D DIMER history of rectal prolapse.STUDYCTA CHESTCOMPARISONChest radiograph 07/16/2020TECHNIQUEMultiple CT axial images of the chest were obtained with IV contrast. Coronal and sagittal images were reconstructed. 3D reconstructions using axial MIPS imaging was performed and reviewed. Dose reduction techniques included Automated Exposure Control (AEC) and adjustment of mA and kV.Stenoses are measured using NASCET criteria.FINDINGSPulmonary arteries are identified to segmental branches. There are no pulmonary emboli.Cardiomegaly is present.Atherosclerotic calcifications are present in the coronary arteries. Numerous small mediastinal lymph nodes are present.The thyroid has a normal size and configuration. No axillary mass or significant axillary lymphadenopathy is identified. These are probably reactive.Bilateral patchy areas of ground-glass and airspace opacity are present compatible with bronchopneumonia. The appearance is typical for COVID-19. No pleural effusion or pneumothorax.Splenomegaly is present measuring about 13 cm in maximum dimension.Degenerative changes are present in the spine. There are calcifications in the soft tissues around the left shoulder and right shoulder indicating calcific tendinitis.IMPRESSION1. No pulmonary emboli2. Bronchopneumonia3. Cardiomegaly with CAD4. SplenomegalyElectronically signed by: Leonel Houser (Jul 16, 2020 11:04:21)
[2020-07-16] MEDS ORDERED: TUSSIONEX PENNKINETIC SUSP PO PRN (11:17)
[2020-07-16] MEDS ORDERED: IVERMECTIN PO ONE (11:40)
[2020-07-16] MEDS ORDERED: REMDESIVIR 200 MG in NS 250 ML IV 250 ML IV NR (12:00)
[2020-07-16] MEDS ORDERED: LEVAQUIN PREMIX IV 500 MG 500 MG/100 ML BAG IV SCH (12:00)
[2020-07-16] MEDS ORDERED: LEVAQUIN PREMIX IV 500 MG 500 MG/100 ML BAG IV ONE (12:27)
[2020-07-16] MEDS ORDERED: NS 1/2 1000 ML IV 1,000 ML IV ONE (12:27)
[2020-07-16] MEDS ORDERED: PROTONIX INJ 40 MG VIAL ONE (12:27)
[2020-07-16] MEDS ORDERED: ROBITUSSIN DM ONE (12:27)
--- NOTE | 2020-07-16 12:37 | VAS ---
HISTORYB/L LEG PAIN, ELEVATED D DIMER. .COVID +STUDYLOWER EXT VENOUS, BILATERALCOMPARISONNoneTECHNIQUEMultiple walton scale and color flow Doppler images of the deep venous system were obtained of the right and left lower extremity.FINDINGSThe deep venous system of the right and left lower extremities were evaluated from the level of the common femoral vein through the popliteal vein. Normal color flow and augmentation can be observed. In addition, normal compression is seen throughout the deep venous system.IMPRESSIONNegative for DVT.Electronically signed by: SHAKILA BRAN (Jul 16, 2020 12:35:56)
[2020-07-16] MEDS: ROBITUSSIN DM PO SCH ×3 (12:38→22:05)
[2020-07-16] MEDS: PROTONIX INJ 40 MG VIAL IVP SCH ×2 (12:38→22:04)
[2020-07-16] MEDS: NS 1/2 1000 ML IV 1,000 ML IV SCH (12:39)
[2020-07-16] MEDS ORDERED: IVERMECTIN PO SCH (12:43)
[2020-07-16 13:03] LABS: CRYPTOSPORIDIUM PARVUM ANTIGEN NEGATIVE (NEGATIVE); GIARDIA LAMBLIA ANTIGEN NEGATIVE (NEGATIVE)
[2020-07-16] MEDS: BUTT CREAM (COMPOUND) TOP PRN (13:48)
[2020-07-16] MEDS ORDERED: NS 250 ML IV 250 ML IV ONE (14:21)
[2020-07-16] MEDS ORDERED: REMDESIVIR IV ONE (14:21)
[2020-07-16] MEDS: ZOFRAN INJ 4 MG VIAL IVP PRN ×2 (14:42→21:30)
[2020-07-16] MEDS ORDERED: PHENERGAN INJ 25 MG IM PRN (16:27)
[2020-07-16] MEDS: VSL#3 PO SCH (17:02)
[2020-07-16] MEDS: VITAMIN D3 125 mcg (5,000 UNITS) PO SCH (17:02)
[2020-07-16] MEDS: ZINC SULFATE PO SCH (17:03)
[2020-07-16] MEDS: TESSALON PERLES PO SCH ×2 (17:03→22:05)
[2020-07-16] MEDS: ASCORBIC ACID INJ MULTI-DOSE VIAL 1,500 MG in NS 50 ML IV 50 ML IV SCH ×3 (17:20→22:03)
[2020-07-16] MEDS: DUONEB 0.5 MG/3 MG (3 mL) NEB SCH ×2 (19:16→22:40)
[2020-07-16] MEDS: MELATONIN PO SCH (22:04)
--- NOTE | 2020-07-16 22:31 | DR.H&P ---
H&P - History & Physical for Day of: H&P Date: 07/16/20 - Chief Complaint Chief Complaint: ABDOMINAL PAIN, N/V/D, WEAKNESS - History of Present Illness History of Present Illness: IS A 89 YEAR OLD PATIENT OF [facility] WHO PRESENTED TO THE ER WITH COMPLAINTS OF DIFFUSE ABDOMINAL PAIN, NAUSEA, VOMITING, DIARRHEA, AND WEAKNESS. SHE REPORTS BEING EXPOSED TO COVID-19. ABDOMINAL PAIN IS RATED A 6/10 AND IS DESCRIBED CRAMPING. HER SYMPTOMS STARTED ONE DAY PRIOR. SHE REPORTS RECENTLY TESTING POSITIVE FOR C-DIFF. HER PMH INCLUDES: CATARACTS, DEMENTIA, HYPERTENSION, GERD, CHRONIC UTIs, CHOLECYSTECTOMY, HYSTERECTOMY, AND TONSILLECTOMY. EXAMINATION REVEALED DIMINISHED LUNG SOUNDS THROUGOUT AND HYPERACTIVE BOWEL SOUNDS IN ALL QUADRANTS. ON ARRIVAL TO THE ER, VITALS WERE 100.4-100-26-95%-111/55. LABS WERE OBTAINED. ABNORMAL LAB VALUES INCLUDE THE FOLLOWING: WBC 23.6, HGB 11.4, HCT 34.6, D-DIMER 3.49, SODIUM 126, CHLORIDE 94, CARBON DIOXIDE 16.5, CREATININE 1.06, LACTIC ACID 3.8, FERRITIN 768, ALK PHOS 37, CRP 62.30, TOTAL PROTEIN 5.9, ALBUMIN 2.6. CARDIAC ENZYMES ARE WITHIN NORMAL LIMITS. COVID-19 POSITIVE. C-DIFF TOXIN A&B POSITIVE. STOOL IS ALSO POSITIVE FOR OCCULT BLOOD AND WHITE CELLS. AN ABG WAS OBTAINED AND REVEALED: PH 7.450, PC02 23.0, P02 88, HC03 16.0, 02 SAT 97, BASE EXCESS -6.2, A-A GRADIENT 33, FI02 21.0. STOOL, URINE, AND BLOOD CULTURES ARE POSITIVE. A CHEST XRAY WAS OBTAINED AND REVEALED: Bilateral mild interstitial lung changes likely chronic. No definite acute infiltrates. AN ABDOMEN/PELVIS CT WITHOUT CONTRAST WAS OBTAINED AND REVEALED: Exam limited due to the lack of intravenous and oral contrast. Bibasilar peribronchial lung infiltrates suggestive of developing bronchopneumonia. Clinical correlation is recommended. Mild dilatation of the colon which is filled with fluid cecum to rectum which can be seen with diarrheal illness. Historical correlation is recommended. Tiny nonobstructing left upper pole renal calculus. EKG WAS OBTAINED AND REVEALED: SINUS TACHYCARDIA WITH HR 114. A CHEST CTA WAS OBTAINED AND REVEALED: 1. No pulmonary emboli 2. Bronchopneumonia 3. Cardiomegaly with CAD 4. Splenomegaly. A LOWER EXTREMITY VENOUS DOPPLER WAS OBTAINED AND REVEALED: Negative for DVT. IN [facility] ER, SHE RECEIVED LEVAQUIN 500MG IV X 1 DOSE AND REMDESIVIR 200MG IV X 1 DOSE. SHE WAS ADMITTED TO THE HOSPTIAL FOR FURTHER EVALUATION AND TREAMENT OF BRONCHOPNEUMONIA DUE TO COVID-19, C-DIFF DIARRHEA, AND DEHYDRATION. SHE WAS STARTED ON 1/2NS AT 75 ML/HR, FLAGYL 500MG IV Q6H, REMDESIVIR 100MG IV DAILY, IVERMECTIN, EUONEBS QID, ASCORBIC ACID 1500MG IV Q6HR, TESSALON PERLES 200MG PO TID, TUSSIONEX SUSP 5ML PO Q12H PRN, PEPCID 20MG IV BID, ROBITUSSIN DM 10 ML PO QID, VSL 2 CAPS PO DAILY, MELATONIN 10MG PO HS, SOLU-MEDROL 125MG IV Q8H, ZOFRAN 4MG IV Q6H PRN, PROTONIX 40MG IV BID, PHENERGAN 12.5MG IM Q6H PRN, AND ZINC SULFATE 220MG PO DAILY. OTHERWISE, WE PLAN TO FOLLOW UP WITH AM LABS, CHEST XRAY, ABG, AND CONTINUE TO MONITOR. WE WILL ALSO OBTAIN AN ECHO. TIME SPENT ON CLINICAL ASSESSMENT, PHYSICAL EXAMINATION, REVIEWING LABS/IMAGING, AND DECISION MAKING GREATER THAN 75 MINUTES. - Past Medical History Past Medical History: Dementia, GERD, Hypertension Additional Medical History: chronic UTIs - Past Surgical History Surgical History: Cholecystectomy, Hysterectomy, Other, Tonsillectomy - Family History Family Medical History: Cancer, Hypertension - Social History Does patient currently use any type of tobacco product: No Have you used tobacco products in the last 12 months: No Type of Tobacco Use: None Does any household member use tobacco: No Alcohol Use: None Drug Use: None - Medications Home Medications: No Known Drug Allergies Allergy (Verified 03/12/19 18:07) - Review of Systems Constitutional: Fever, Chills, Weakness Eyes: No Symptoms Reported ENT: No Symptoms Reported Respiratory: See HPI, Shortness of Breath, SOB with Excertion Cardiovascular: No Symptoms Reported Gastrointestinal: See HPI, Nausea, Vomiting, Abdominal Pain, Diarrhea Genitourinary: No Symptoms Reported Musculoskeletal: No Symptoms Reported Skin: No Symptoms Reported Neurological: See HPI, Weakness - Physical Exam Vital Signs: Temperature 99.9 F Pulse Rate [Right Brachial] 100 Pulse Rate [Left] 114 Pulse Rate 98 Respiratory Rate 24 Blood Pressure [Right Calf] 132/63 Blood Pressure [Right Arm] 166/71 Blood Pressure 114/57 O2 Sat by Pulse Oximetry 99 Oriented: Normal Eyes: Normal Ear: Normal Nose: Normal Throat: Normal Respiratory: Diminished Throughout Cardiovascular: Normal : Normal Auscultation: Bowel Sounds: Increased Palpation: Normal Tenderness: Normal Skin: Normal Musculoskeletal: Normal Psychiatric: Normal Mood Description: Calm Affect: Normal Speech Pattern: Clear - Assessment/Plan (1) Bronchopneumonia Status: Acute Plan: ADMIT, 1/2NS AT 75 ML/HR, FLAGYL 500MG IV Q6H, REMDESIVIR 100MG IV DAILY, IVERMECTIN, EUONEBS QID, ASCORBIC ACID 1500MG IV Q6HR, TESSALON PERLES 200MG PO TID, TUSSIONEX SUSP 5ML PO Q12H PRN, PEPCID 20MG IV BID, ROBITUSSIN DM 10 ML PO QID, VSL 2 CAPS PO DAILY, MELATONIN 10MG PO HS, SOLU-MEDROL 125MG IV Q8H, ZOFRAN 4MG IV Q6H PRN, PROTONIX 40MG IV BID, PHENERGAN 12.5MG IM Q6H PRN, AND ZINC SULFATE 220MG PO DAILY. (2) COVID-19 virus infection Status: Acute (3) C. difficile diarrhea Status: Acute (4) Acute dehydration Status: Acute (5) Generalized weakness Status: Acute - Allergies Allergies/Adverse Reactions: Allergies Allergy/AdvReac Type Severity Reaction Status Date / Time No Known Drug Allergies Allergy Verified 03/12/19 18:07
[2020-07-16] MEDS: PEPCID 20 MG IV PREMIX* 20 MG/50 ML BAG IV SCH (23:30)
[2020-07-17] MEDS: FLAGYL IV PREMIX 500 MG BAG 500 MG/100 ML BAG IV SCH ×5 (00:46→21:23)
[2020-07-17] MEDS ORDERED: NS 1/2 1000 ML IV 1,000 ML IV ONE (02:17)
[2020-07-17] MEDS: ASCORBIC ACID INJ MULTI-DOSE VIAL 1,500 MG in NS 50 ML IV 50 ML IV SCH ×4 (03:28→21:23)
[2020-07-17] MEDS: TESSALON PERLES PO SCH ×3 (05:18→21:25)
[2020-07-17] MEDS: SOLU-Medrol 125 MG VIAL IVP SCH ×3 (05:32→21:25)
[2020-07-17] MEDS: NS 1/2 1000 ML IV 1,000 ML IV SCH ×2 (05:33→16:35)
[2020-07-17 06:39] LABS: ABG BASE EXCESS -7.6 mmol/L (-2.0-2.0)
[2020-07-17 06:41] LABS: ABG ALLEN TEST POSS; ABG HCO3 13.8 mmol/L (22-26)
[2020-07-17 06:49] LABS: BASOPHILS % (AUTO) 0.2 % (0.2-1.0); HEMATOCRIT 33.4 % (36.0-47.0); HEMOGLOBIN 11.3 g/dL (12.0-16.0); LYMPHOCYTES # (AUTO) 0.6 X10^3/uL (1.3-2.9); MEAN CORPUSCULAR HEMOGLOBIN 31.7 pg (27.0-34.0); MEAN CORPUSCULAR HGB CONC 33.7 g/dL (33.0-35.0); MEAN PLATELET VOLUME 7.5 fL (7.4-11.0); MONOCYTES # (AUTO) 1.4 x10^3/uL (0.3-0.8); MONOCYTES % (AUTO) 9.6 % (0.0-13.0); NEUTROPHILS # (AUTO) 12.5 x10^3/uL (2.2-4.8); NEUTROPHILS % (AUTO) 86.2 % (42.0-75.0); PLATELET COUNT 428 X10^3/uL (150.0-450.0); RED BLOOD COUNT 3.55 X10^6/uL (3.5-5.4); RED CELL DISTRIBUTION WIDTH 15.1 % (11.6-16.5); WHITE BLOOD COUNT 14.5 X10^3/uL (3.6-10.0)
[2020-07-17 07:24] LABS: ALANINE AMINOTRANSFERASE 10 Units/L (12-78); ALKALINE PHOSPHATASE 37 Units/L (46-116); ASPARTATE AMINO TRANSFERASE 22 Units/L (15-37); BLOOD UREA NITROGEN 23 mg/dL (7-18); CARBON DIOXIDE 16.3 mmol/L (21-32); CHLORIDE 97 mmol/L (98-107); COR CA(FOR HYPOALB) 9.6 mg/dL (8.5-10.1); COR NA(FOR HYPERGLY) 127 mmol/L (136-145); CREATININE 1.06 mg/dL (0.55-1.02); SODIUM 127 mmol/L (136-145); eGFR NON BLACK RACES 52 (>60)
[2020-07-17 07:42] LABS: BAND NEUTROPHILS % 22 % (0-10); PLATELET MORPHOLOGY COMMENT NORMAL (NORMAL)
--- NOTE | 2020-07-17 08:09 | RAD ---
HISTORYPNEUMONIASTUDYCHEST, 1 [id number] patchy areas of opacity in the lungs are present compatible with bronchopneumonia. There may be a slight progression on the right side. The findings on the left side are unchanged.No pleural effusion or pneumothorax.Heart size is normal.Bones are unremarkable.EKG leads are noted.IMPRESSION1. Bronchopneumonia, progressed on the rightElectronically signed by: Leonel Houser (Jul 17, 2020 08:08:15)
[2020-07-17] MEDS: VSL#3 PO SCH (09:10)
[2020-07-17] MEDS: PROTONIX INJ 40 MG VIAL IVP SCH ×2 (09:10→21:24)
[2020-07-17] MEDS: ROBITUSSIN DM PO SCH ×5 (09:10→21:25)
[2020-07-17] MEDS: VITAMIN D3 125 mcg (5,000 UNITS) PO SCH (09:10)
[2020-07-17] MEDS: PEPCID 20 MG IV PREMIX* 20 MG/50 ML BAG IV SCH ×2 (09:10→21:23)
[2020-07-17] MEDS: ZINC SULFATE PO SCH (09:11)
[2020-07-17] MEDS: DUONEB 0.5 MG/3 MG (3 mL) NEB SCH ×4 (09:45→21:00)
[2020-07-17] MEDS: ZOFRAN INJ 4 MG VIAL IVP PRN (10:31)
[2020-07-17] MEDS: BUTT CREAM (COMPOUND) TOP PRN (11:00)
[2020-07-17] MEDS: REMDESIVIR 100 MG in NS 250 ML IV 250 ML IV SCH (12:35)
[2020-07-17] MEDS: IVERMECTIN PO SCH (18:18)
[2020-07-17] MEDS ORDERED: LOMOTIL PO PRN (20:23)
--- NOTE | 2020-07-17 20:39 | PCM.PROG ---
Progress Note - Progress Note for Day of Date of Exam: 07/17/20 - Subjective Subjective: IS BEING TREATED FOR BRONCHOPNEUMONIA DUE TO COVID-19, C DIFF DIARRHEA, ACUTE DEHYDRATION, AND GENERALIZED WEAKNESS. TODAY, SHE IS ALERT AND ORIENTED, LYING IN BED ON MORNING ROUNDS. SHE CONTINUES WITH COMPLAINTS OF NAUSEA, DIARRHEA, AND WEAKNESS. SHE REPORTS DECREASED APPETITE AND REPORTS BEING UNABLE TO HOLD ANYTHING DOWN. SHE IS CURRENTLY ON ROOM AIR. ON EXAMINATION, HEART IS REGULAR IN RATE AND RHYTHM. BILATERAL LUNGS ARE NOTED WITH DIMINISHED LUNG SOUNDS THROUGHOUT. ABDOMEN IS ROUND, SOFT, AND NOTED WITH DIFFUSE TENDERNESS. HYPERACTIVE BOWEL SOUNDS ARE NOTED IN ALL QUADRANTS. HER VITALS THIS MORNING ARE: 97.9-100-20-96%120/56. LABS WERE OBTAINED. ABNORMAL LAB VALUES IN CLUDE THE FOLLOWING: WBC 14.5, HGB 11.3, HCT 33.4, SODIUM 127, CHLORIDE 97, CARBON DIOXIDE 16.3, BUN 23, CREATININE 1.06, GLUCOSE 120, CALCIUM 8.0, FERRITIN 802, ALT 10, ALK PHOS 37, CRP 183, BNP 144, TOTAL PROTEIN 5.0, ALBUMIN 2.0. STOOL, URINE, AND BLOOD CULTURES ARE PENDING. A CHEST XRAY WAS OBTAINED TODAY AND REVEALED: Bronchopneumonia, progressed on the right. SHE IS CURRENTLY RECEIVING 1/2NS AT 75 ML/HR, FLAGYL 500MG IV Q6H, REMDESIVIR 100MG IV DAILY, IVERMECTIN, EUONEBS QID, ASCORBIC ACID 1500MG IV Q6HR, TESSALON PERLES 200MG PO TID, TUSSIONEX SUSP 5ML PO Q12H PRN, PEPCID 20MG IV BID, ROBITUSSIN DM 10 ML PO QID, VSL 2 CAPS PO DAILY, MELATONIN 10MG PO HS, SOLU-MEDROL 125MG IV Q8H, ZOFRAN 4MG IV Q6H PRN, PROTONIX 40MG IV BID, PHENERGAN 12.5MG IM Q6H PRN, AND ZINC SULFATE 220MG PO DAILY. TODAY, WE WILL INCREASE HER IV FLUIDS TO 150 ML/HR, ADD VANCOMYCIN 250MG PO QID, LOMOTIL 1 TAB TID PRN, AND DO A 3 DAY CALORIE COUNT. OTHERWISE, WE PLAN TO FOLLOW UP WITH AM LABS, CHEST XRAY, AND CONTINUE TO MONITOR. TIME SPENT ON CLINICAL ASSESSMENT, PHYSICAL EXAMINATION, REVIEWING LABS/IMAGING, AND DECISION MAKING GREATER THAN 75 MINUTES. - Past Medical Family Social History Past Med/Fam/Surg Hx: No changes since H&P Allergies: Allergies No Known Drug Allergies Allergy (Verified 03/12/19 18:07) - Review of Systems ROS: No change since H&P - Vital Signs and I&O's Vital Signs: Temperature 97.5 F Pulse Rate [Right Brachial] 108 Pulse Rate [Left] 102 Pulse Rate 100 Respiratory Rate 20 Blood Pressure [Right Calf] 132/63 Blood Pressure [Right Arm] 119/72 Blood Pressure 114/57 O2 Sat by Pulse Oximetry 98 Intake and Output: Intake & Output 07/15/20 07/16/20 07/17/20 07/18/20 11:59 11:59 11:59 11:59 Intake Total 2626 / 2626 1050 / 1050 Output Total 1020 / 1020 450 / 450 Balance 1606 / 1606 600 / 600 - Physical Exam Oriented: Normal Eyes: Normal Ear: Normal Nose: Normal Throat: Normal Respiratory: Generalized, Diminished Cardiovascular: Normal : Normal Auscultation: Bowel Sounds: Increased Palpation: Normal Tenderness: Diffuse, Mild Skin: Normal Musculoskeletal: Normal Psychiatric: Normal Mood Description: Calm Affect: Normal Speech Pattern: Clear, Appropriate - Laboratory and Diagnostics Result Diagrams: 07/17/20 06:25 07/17/20 06:25 Labs: 07/16/20 08:46 Urine,Catheterized Urine Culture - Preliminary 07/16/20 10:58 Stool Stool Culture - Preliminary 07/16/20 10:58 Stool - Final Laboratory WBC 14.5 X10^3/uL (3.6-10.0) H D 07/17/20 06:25 RBC 3.55 X10^6/uL (3.5-5.4) 07/17/20 06:25 Hgb 11.3 g/dL (12.0-16.0) L 07/17/20 06:25 Hct 33.4 % (36.0-47.0) L 07/17/20 06:25 MCV 94.0 fL (80.0-100.0) 07/17/20 06:25 MCH 31.7 pg (27.0-34.0) 07/17/20 06:25 MCHC 33.7 g/dL (33.0-35.0) 07/17/20 06:25 RDW 15.1 % (11.6-16.5) 07/17/20 06:25 Plt Count 428 X10^3/uL (150.0-450.0) 07/17/20 06:25 Plt Count Comment Adequate (ADEQUATE) 07/17/20 06:25 MPV 7.5 fL (7.4-11.0) 07/17/20 06:25 Neut % (Auto) 86.2 % (42.0-75.0) H 07/17/20 06:25 Lymph % (Auto) 4.0 % (21.0-51.0) L 07/17/20 06:25 [place] % (Auto) 9.6 % (0.0-13.0) 07/17/20 06:25 Eos % (Auto) 0.0 % (0.9-2.9) L 07/17/20 06:25 Baso % (Auto) 0.2 % (0.2-1.0) 07/17/20 06:25 Neut # (Auto) 12.5 x10^3/uL (2.2-4.8) H 07/17/20 06:25 Lymph # (Auto) 0.6 X10^3/uL (1.3-2.9) L 07/17/20 06:25 [place] # (Auto) 1.4 x10^3/uL (0.3-0.8) H 07/17/20 06:25 Eos # (Auto) 0.0 x10^3/uL (0.0-0.2) 07/17/20 06:25 Baso # (Auto) 0.0 X10^3/uL (0.0-0.1) 07/17/20 06:25 Absolute Nucleated RBC 0.0 /100WBC 07/17/20 06:25 Total Counted 100 07/17/20 06:25 Neutrophils % (Manual) 64 % (39-76) 07/17/20 06:25 Band Neutrophils % 22 % (0-10) H 07/17/20 06:25 Lymphocytes % (Manual) 3 % (13-43) L 07/17/20 06:25 Monocytes % (Manual) 11 % (4-9) H 07/17/20 06:25 Plt Morphology Comment Normal (NORMAL) 07/17/20 06:25 RBC Morphology Normal (NORMAL) 07/17/20 06:25 D-Dimer 3.49 ug/ml (0.0-0.57) H* 07/16/20 09:07 Sample Site R rad 07/17/20 05:40 ABG pH 7.470 (7.35-7.45) H 07/17/20 05:40 ABG pCO2 19.0 mmHg (35.0-45.0) L* 07/17/20 05:40 ABG pO2 122.0 mmHg (80.0-100.0) H 07/17/20 05:40 ABG HCO3 13.8 mmol/L (22-26) L* 07/17/20 05:40 ABG O2 Saturation 99.0 % (90-100) 07/17/20 05:40 ABG Base Excess -7.6 mmol/L (-2.0-2.0) L 07/17/20 05:40 Chris Test Poss 07/17/20 05:40 A-a Gradient 4.0 mmHg 07/17/20 05:40 FiO2 21.0 07/17/20 05:40 Blood Gas Comments Annie well kb 07/17/20 05:40 Sodium 127 mmol/L (136-145) L 07/17/20 06:25 Corrected Sodium 127 mmol/L (136-145) L 07/17/20 06:25 Potassium 3.5 mmol/L (3.5-5.1) 07/17/20 06:25 Chloride 97 mmol/L (98-107) L 07/17/20 06:25 Carbon Dioxide 16.3 mmol/L (21-32) L 07/17/20 06:25 BUN 23 mg/dL (7-18) H 07/17/20 06:25 Creatinine 1.06 mg/dL (0.55-1.02) H 07/17/20 06:25 Est GFR (MDRD) Af Amer > 60 (>60) 07/17/20 06:25 Est GFR (MDRD) Non-Af 52 (>60) L 07/17/20 06:25 Glucose 120 mg/dL (65-99) H 07/17/20 06:25 Lactic Acid 3.8 mmol/L (0.4-2.0) H 07/16/20 06:48 Lactic Acid Cancelled 07/16/20 06:48 Calcium 8.0 mg/dL (8.5-10.1) L 07/17/20 06:25 Corrected Calcium 9.6 mg/dL (8.5-10.1) 07/17/20 06:25 Ferritin 802 ng/mL (8-252) H 07/17/20 06:25 Total Bilirubin 0.30 mg/dL (0.2-1.0) 07/17/20 06:25 AST 22 Units/L (15-37) 07/17/20 06:25 ALT 10 Units/L (12-78) L 07/17/20 06:25 Alkaline Phosphatase 37 Units/L (46-116) L 07/17/20 06:25 Creatine Kinase 57 Units/L (26-192) 07/16/20 06:48 CK-MB (CK-2) < 1.0 ng/mL (0-4.0) 07/16/20 06:48 CK/CKMB % Calc 1.8 % (<4) 07/16/20 06:48 Troponin I < 0.02 ng/mL (0-1.5) 07/16/20 06:48 C-Reactive Protein 183.00 mg/L (0-3.0) H 07/17/20 06:25 B-Natriuretic Peptide 144 pg/mL (0-79) H 07/16/20 09:07 Total Protein 5.0 g/dL (6.4-8.2) L 07/17/20 06:25 Albumin 2.0 g/dL (3.4-5.0) L 07/17/20 06:25 Globulin 3.0 g/dL (2.5-4.5) 07/17/20 06:25 Albumin/Globulin Ratio 0.7 Ratio (1.1-2.1) L 07/17/20 06:25 Amylase 50 Units/L (25-115) 07/16/20 06:48 Amylase Cancelled 07/16/20 06:48 Lipase 108 Units/L (73-393) 07/16/20 06:48 Lipase Cancelled 07/16/20 06:48 Specimen Type Catherized urine 07/16/20 08:46 Urine Color Yellow (YELLOW) 07/16/20 08:46 Urine Appearance Clear (CLEAR) 07/16/20 08:46 Urine pH 6.0 (5.0 - 8.0) 07/16/20 08:46 Ur Specific [place] 1.015 (1.000-1.030) 07/16/20 08:46 Urine Protein 2+ (NEGATIVE) 07/16/20 08:46 Urine Glucose (UA) Negative (NEGATIVE) 07/16/20 08:46 Urine Ketones Negative (NEGATIVE) 07/16/20 08:46 Urine Occult Blood Negative (NEGATIVE) 07/16/20 08:46 Urine Nitrite Negative (NEGATIVE) 07/16/20 08:46 Urine Bilirubin Negative (NEGATIVE) 07/16/20 08:46 Urine Urobilinogen Normal (NORMAL) 07/16/20 08:46 Ur Leukocyte Esterase 1+ (NEGATIVE) 07/16/20 08:46 Urine RBC 0-2 /HPF (0-3) 07/16/20 08:46 Urine WBC 0-2 /HPF (0-5) 07/16/20 08:46 Ur Squamous Epith Cells Rare /HPF (NEGATIVE) 07/16/20 08:46 Amorphous Sediment Trace /HPF (NEGATIVE) 07/16/20 08:46 Urine Bacteria Trace /HPF (NEGATIVE) 07/16/20 08:46 Ur Culture Indicated? Yes/culture set up 07/16/20 08:46 Stool Description 15g unformed brown 07/16/20 10:58 Stool Description 15g unformed brown 07/16/20 10:58 Stl Occult Blood (IFOB) Positive (NEGATIVE) A 07/16/20 10:58 Stool for White Cells Positive (NEGATIVE) A 07/16/20 10:58 Stl C. diff Tox B Gene Positive (NEGATIVE) A 07/16/20 10:58 Stl C. diff 027-NAP1-BI Positive (NEGATIVE) A 07/16/20 10:58 Stool H. pylori Ag Negative (NEGATIVE) 07/16/20 10:58 C. difficile Toxin A&B Positive (NEGATIVE) A 07/16/20 10:58 Cryptosporid parvum Ag Negative (NEGATIVE) 07/16/20 10:58 Giardia lamblia Ag Negative (NEGATIVE) 07/16/20 10:58 SARS CoV-2 RNA Rapid JULIET Positive (NEGATIVE) A 01/05/21 06:02 - Plan (1) Bronchopneumonia Status: Acute Plan: 1/2NS AT 150 ML/HR, FLAGYL 500MG IV Q6H, VANCOMYCIN 250MG PO QID, LOMOTIL 1 TAB PO TID PRN, REMDESIVIR 100MG IV DAILY, IVERMECTIN, EUONEBS QID, ASCORBIC ACID 1500MG IV Q6HR, TESSALON PERLES 200MG PO TID, TUSSIONEX SUSP 5ML PO Q12H PRN, PEPCID 20MG IV BID, ROBITUSSIN DM 10 ML PO QID, VSL 2 CAPS PO DAILY, MELATONIN 10MG PO HS, SOLU-MEDROL 125MG IV Q8H, ZOFRAN 4MG IV Q6H PRN, PROTONIX 40MG IV BID, PHENERGAN 12.5MG IM Q6H PRN, AND ZINC SULFATE 220MG PO DAILY. (2) COVID-19 virus infection Status: Acute (3) C. difficile diarrhea Status: Acute (4) Acute dehydration Status: Acute (5) Generalized weakness Status: Acute
[2020-07-17] MEDS ORDERED: VANCOMYCIN HCL 250 MG CAP PO SCH (21:00)
[2020-07-17] MEDS: VANCOMYCIN HCL 250 MG CAP PO SCH (21:45)
[2020-07-17] MEDS: MELATONIN PO SCH (22:04)
[2020-07-18] MEDS: ASCORBIC ACID INJ MULTI-DOSE VIAL 1,500 MG in NS 50 ML IV 50 ML IV SCH ×4 (03:10→20:16)
[2020-07-18] MEDS: FLAGYL IV PREMIX 500 MG BAG 500 MG/100 ML BAG IV SCH ×4 (03:12→20:18)
[2020-07-18] MEDS: SOLU-Medrol 125 MG VIAL IVP SCH ×3 (05:14→20:23)
[2020-07-18] MEDS: TESSALON PERLES PO SCH ×3 (05:15→21:55)
[2020-07-18 05:58] LABS: ABG BASE EXCESS -9.3 mmol/L (-2.0-2.0)
[2020-07-18 05:59] LABS: ABG ALLEN TEST POSS; ABG HCO3 13.3 mmol/L (22-26)
[2020-07-18 06:14] LABS: BASOPHILS % (AUTO) 0.1 % (0.2-1.0); HEMATOCRIT 33.2 % (36.0-47.0); HEMOGLOBIN 11.3 g/dL (12.0-16.0); LYMPHOCYTES # (AUTO) 0.5 X10^3/uL (1.3-2.9); LYMPHOCYTES % (AUTO) 2.5 % (21.0-51.0); MEAN CORPUSCULAR HEMOGLOBIN 31.7 pg (27.0-34.0); MEAN CORPUSCULAR HGB CONC 34.1 g/dL (33.0-35.0); MEAN CORPUSCULAR VOLUME 92.7 fL (80.0-100.0); MEAN PLATELET VOLUME 7.9 fL (7.4-11.0); MONOCYTES % (AUTO) 5.3 % (0.0-13.0); NEUTROPHILS % (AUTO) 92.1 % (42.0-75.0); PLATELET COUNT 404 X10^3/uL (150.0-450.0); RED BLOOD COUNT 3.58 X10^6/uL (3.5-5.4); RED CELL DISTRIBUTION WIDTH 14.8 % (11.6-16.5); WHITE BLOOD COUNT 18.4 X10^3/uL (3.6-10.0)
[2020-07-18 06:16] LABS: ALBUMIN 1.9 g/dL (3.4-5.0); CALCIUM 7.7 mg/dL (8.5-10.1); COR CA(FOR HYPOALB) 9.4 mg/dL (8.5-10.1); CREATININE 1.22 mg/dL (0.55-1.02); TOTAL PROTEIN 4.8 g/dL (6.4-8.2)
[2020-07-18] MEDS: NS 1/2 1000 ML IV 1,000 ML IV SCH ×2 (06:29→20:15)
[2020-07-18] MEDS ORDERED: K-DUR TAB 20 MEQ PO PRN (06:31)
[2020-07-18] MEDS ORDERED: MICRO K EXTEN CAP 10 MEQ PO PRN (06:31)
[2020-07-18] MEDS ORDERED: POTASSIUM CHL 40 MEQ/NS 0.45% 500 ML IV PRN (06:31)
[2020-07-18] MEDS ORDERED: POTASSIUM CHL 60 MEQ/NS 0.45% 500 ML IV PRN (06:31)
[2020-07-18] MEDS ORDERED: KLOR-CON PO PRN (06:31)
--- NOTE | 2020-07-18 06:50 | RAD ---
HISTORYSOBSTUDYCHEST, 1 VIEWCOMPARISONOne day prior.TECHNIQUEAP view of the chestFINDINGSCardiac and mediastinal contours are within normal limits. No significant change in patchy bibasilar lung opacities. Blunted right costophrenic sulcus. No pneumothorax.IMPRESSIONNo significant change. Patchy bibasilar lung opacities may represent atelectasis or pneumonia. Blunted costophrenic sulcus could represent scar or small pleural effusion.Electronically signed by: Joshua Grande (Jul 18, 2020 06:49:32)
[2020-07-18] MEDS: K-RIDER 10 MEQ/NS 100 ML 10 MEQ/100 ML BAG IV PRN (07:37)
[2020-07-18 07:39] LABS: BAND NEUTROPHILS % 10 % (0-10); CRENATED RBC 1+; PLATELET MORPHOLOGY COMMENT NORMAL (NORMAL)
[2020-07-18] MEDS: PROTONIX INJ 40 MG VIAL IVP SCH ×2 (08:35→20:22)
[2020-07-18] MEDS: ZINC SULFATE PO SCH (08:36)
[2020-07-18] MEDS: ROBITUSSIN DM PO SCH ×4 (08:36→20:22)
[2020-07-18] MEDS: VSL#3 PO SCH (08:36)
[2020-07-18] MEDS: VANCOMYCIN HCL 250 MG CAP PO SCH ×4 (08:36→20:24)
[2020-07-18] MEDS: VITAMIN D3 125 mcg (5,000 UNITS) PO SCH (08:37)
[2020-07-18] MEDS: POTASSIUM CHLORIDE LIQ 20 MEQ UDC PO PRN (08:50)
[2020-07-18] MEDS ORDERED: LOVENOX INJ 30 MG SYR SC SCH (09:00)
[2020-07-18] MEDS: DUONEB 0.5 MG/3 MG (3 mL) NEB SCH ×4 (10:22→20:50)
[2020-07-18] MEDS: PEPCID 20 MG IV PREMIX* 20 MG/50 ML BAG IV SCH (10:30)
[2020-07-18] MEDS ORDERED: LANOXIN INJ IVP ONE (11:07)
[2020-07-18] MEDS: REMDESIVIR 100 MG in NS 250 ML IV 250 ML IV SCH (11:15)
[2020-07-18] MEDS ORDERED: MORPHINE SULFATE INJ 2 MG INJ IVP PRN (11:39)
[2020-07-18] MEDS: LOPRESSOR TAB 25 MG PO SCH ×2 (11:54→20:19)
[2020-07-18] MEDS: ZOFRAN INJ 4 MG VIAL IVP PRN (11:56)
[2020-07-18] MEDS: ALBUMIN HUMAN 25%- 100 ML 100 ML IV SCH (12:28)
[2020-07-18] MEDS: MAGNESIUM SULFATE 1 GRAM/100 mL PREMIX 1 GM/100 ML BAG IV PRN ×3 (16:56→23:09)
[2020-07-18] MEDS ORDERED: NS 1/2 1000 ML IV 1,000 ML IV ONE (19:45)
--- NOTE | 2020-07-18 20:02 | PCM.PROG ---
Progress Note - Progress Note for Day of Date of Exam: 07/18/20 - Subjective Subjective: IS BEING TREATED FOR BRONCHOPNEUMONIA DUE TO COVID-19, C DIFF DIARRHEA, ACUTE DEHYDRATION, AND GENERALIZED WEAKNESS. TODAY, SHE IS ALERT AND ORIENTED, LYING IN BED ON MORNING ROUNDS. SHE CONTINUES WITH COMPLAINTS OF DIARRHEA AND WEAKNESS. DIARRHEA HAS SLOWED DOWN SOME. SHE IS CURRENTLY ON ROOM AIR. HER SATURATIONS HAVE BEEN 97-98%. STAFF REPORTS THAT SHE HAS BEEN TACHYCARDIC THROUGHOUT THE NIGHT WITH HR 115-140 BPM. ON EXAMINATION, SHE IS TACHYCARDIC WITH HR 122, REGULAR. BILATERAL LUNGS ARE NOTED WITH DIMINISHED LUNG SOUNDS THROUGHOUT. ABDOMEN IS ROUND, SOFT, AND NOTED WITH DIFFUSE TENDERNESS. HYPERACTIVE BOWEL SOUNDS ARE NOTED IN ALL QUADRANTS. HER VITALS THIS MORNING ARE : 98.3-122-17-96%-100/55. LABS WERE OBTAINED. ABNORMAL LAB VALUES INCLUDE THE FOLLOWING: WBC 18.4, HGB 11.3, HCT 33.2, SODIUM 128, POTASSIUM 2.8, CHLORIDE 97, CARBON DIOXIDE 15.0, BUN 30, CREATININE 1.22, GLUCOSE 161, CALCIUM 7.7, MAGNESIUM 1.3, FERRITIN 1358, ALT 11, ALK PHOS 43, CRP 139.80, TOTAL PROTEIN 4.8, ALBUMIN 1.9. STOOL, URINE, AND BLOOD CULTURES ARE PENDING. A CHEST XRAY WAS OBTAINED TODAY AND REVEALED: No significant change. Patchy bibasilar lung opacities may represent atelectasis or pneumonia. Blunted costophrenic sulcus could represent scar or small pleural effusion. SHE IS CURRENTLY RECEIVING 1/2NS AT 150 ML/HR, FLAGYL 500MG IV Q6H, VANCOMYCIN 250MG PO QID, LOMOTIL 1 TAB TID PRN, REMDESIVIR 100MG IV DAILY, IVERMECTIN, DUONEBS QID, ASCORBIC ACID 1500MG IV Q6HR, TESSALON PERLES 200MG PO TID, TUSSIONEX SUSP 5ML PO Q12H PRN, PEPCID 20MG IV BID, ROBITUSSIN DM 10 ML PO QID, VSL 2 CAPS PO DAILY, MELATONIN 10MG PO HS, SOLU-MEDROL 125MG IV Q6H, ZOFRAN 4MG IV Q6H PRN, PROTONIX 40MG IV BID, PHENERGAN 12.5MG IM Q6H PRN, AND ZINC SULFATE 220MG PO DAILY. TODAY, WE WILL ADD LOVENOX 40MG SC BID, ALBUMIN 25% IV DAILY, METOPROLOL 12.5MG PO BID, AND ADMINISTER DIGOXIN 250MCG PO X 1 DOSE. OTHERWISE, OTHERWISE, WE PLAN TO FOLLOW UP WITH AM LABS, CHEST XRAY, AND CONTINUE TO MONITOR. TIME SPENT ON CLINICAL ASSESSMENT, PHYSICAL EXAMINATION, REVIEWING LABS/IMAGING, AND DECISION MAKING GREATER THAN 75 MINUTES. - Past Medical Family Social History Past Med/Fam/Surg Hx: No changes since H&P Allergies: Allergies No Known Drug Allergies Allergy (Verified 03/12/19 18:07) - Review of Systems ROS: No change since H&P - Vital Signs and I&O's Vital Signs: Temperature 98.4 F Pulse Rate [Right Brachial] 107 Pulse Rate [Left] 102 Pulse Rate 133 Respiratory Rate 16 Blood Pressure [Right Calf] 132/63 Blood Pressure [Right Arm] 108/51 Blood Pressure 114/57 O2 Sat by Pulse Oximetry 97 Intake and Output: Intake & Output 07/16/20 07/17/20 07/18/20 07/19/20 11:59 11:59 11:59 11:59 Intake Total 2626 / 2626 2516 / 2516 1381 / 1381 Output Total 1020 / 1020 550 / 550 925 / 925 Balance 1606 / 1606 1965 / 1965 456 / 456 - Physical Exam Oriented: Normal Eyes: Normal Ear: Normal Nose: Normal Throat: Normal Respiratory: Generalized, Diminished Cardiovascular: Tachycardia. negative: S3, S4, Murmur : Normal Auscultation: Bowel Sounds: Increased Palpation: Normal Tenderness: Diffuse, Mild Skin: Normal Musculoskeletal: Normal Psychiatric: Normal Mood Description: Calm Affect: Normal Speech Pattern: Clear, Appropriate - Laboratory and Diagnostics Result Diagrams: 07/18/20 04:38 07/18/20 12:00 Labs: 07/16/20 06:48 Blood Blood Culture - Preliminary 07/16/20 06:40 Blood Blood Culture - Preliminary 07/16/20 10:58 Stool Stool Culture - Final 07/16/20 10:58 Stool - Final 07/16/20 08:46 Urine,Catheterized Urine Culture - Final Laboratory WBC 18.4 X10^3/uL (3.6-10.0) H 07/18/20 04:38 RBC 3.58 X10^6/uL (3.5-5.4) 07/18/20 04:38 Hgb 11.3 g/dL (12.0-16.0) L 07/18/20 04:38 Hct 33.2 % (36.0-47.0) L 07/18/20 04:38 MCV 92.7 fL (80.0-100.0) 07/18/20 04:38 MCH 31.7 pg (27.0-34.0) 07/18/20 04:38 MCHC 34.1 g/dL (33.0-35.0) 07/18/20 04:38 RDW 14.8 % (11.6-16.5) 07/18/20 04:38 Plt Count 404 X10^3/uL (150.0-450.0) 07/18/20 04:38 Plt Count Comment Adequate (ADEQUATE) 07/18/20 04:38 MPV 7.9 fL (7.4-11.0) 07/18/20 04:38 Neut % (Auto) 92.1 % (42.0-75.0) H 07/18/20 04:38 Lymph % (Auto) 2.5 % (21.0-51.0) L 07/18/20 04:38 [place] % (Auto) 5.3 % (0.0-13.0) 07/18/20 04:38 Eos % (Auto) 0.0 % (0.9-2.9) L 07/18/20 04:38 Baso % (Auto) 0.1 % (0.2-1.0) L 07/18/20 04:38 Neut # (Auto) 17.0 x10^3/uL (2.2-4.8) H 07/18/20 04:38 Lymph # (Auto) 0.5 X10^3/uL (1.3-2.9) L 07/18/20 04:38 [place] # (Auto) 1.0 x10^3/uL (0.3-0.8) H 07/18/20 04:38 Eos # (Auto) 0.0 x10^3/uL (0.0-0.2) 07/18/20 04:38 Baso # (Auto) 0.0 X10^3/uL (0.0-0.1) 07/18/20 04:38 Absolute Nucleated RBC 0.0 /100WBC 07/18/20 04:38 Total Counted 100 07/18/20 04:38 Neutrophils % (Manual) 83 % (39-76) H 07/18/20 04:38 Band Neutrophils % 10 % (0-10) 07/18/20 04:38 Lymphocytes % (Manual) 2 % (13-43) L 07/18/20 04:38 Monocytes % (Manual) 5 % (4-9) 07/18/20 04:38 Plt Morphology Comment Normal (NORMAL) 07/18/20 04:38 RBC Morphology Abnormal (NORMAL) A 07/18/20 04:38 Crenated Cell 1+ A 07/18/20 04:38 D-Dimer 3.49 ug/ml (0.0-0.57) H* 07/16/20 09:07 Sample Site R rad 07/18/20 05:50 ABG pH 7.410 (7.35-7.45) 07/18/20 05:50 ABG pCO2 21.0 mmHg (35.0-45.0) L 07/18/20 05:50 ABG pO2 96.0 mmHg (80.0-100.0) 07/18/20 05:50 ABG HCO3 13.3 mmol/L (22-26) L* 07/18/20 05:50 ABG O2 Saturation 98.0 % (90-100) 07/18/20 05:50 ABG Base Excess -9.3 mmol/L (-2.0-2.0) L 07/18/20 05:50 Chris Test Poss 07/18/20 05:50 A-a Gradient 27.0 mmHg 07/18/20 05:50 FiO2 21.0 07/18/20 05:50 Blood Gas Comments Annie well 07/18/20 05:50 Sodium 128 mmol/L (136-145) L 07/18/20 04:38 Corrected Sodium 129 mmol/L (136-145) L 07/18/20 04:38 Potassium 4.0 mmol/L (3.5-5.1) 07/18/20 12:00 Chloride 97 mmol/L (98-107) L 07/18/20 04:38 Carbon Dioxide 15.0 mmol/L (21-32) L 07/18/20 04:38 BUN 30 mg/dL (7-18) H 07/18/20 04:38 Creatinine 1.22 mg/dL (0.55-1.02) H 07/18/20 04:38 Est GFR (MDRD) Af Amer 53 (>60) L 07/18/20 04:38 Est GFR (MDRD) Non-Af 44 (>60) L 07/18/20 04:38 Glucose 161 mg/dL (65-99) H 07/18/20 04:38 Lactic Acid 3.8 mmol/L (0.4-2.0) H 07/16/20 06:48 Lactic Acid Cancelled 07/16/20 06:48 Calcium 7.7 mg/dL (8.5-10.1) L 07/18/20 04:38 Corrected Calcium 9.4 mg/dL (8.5-10.1) 07/18/20 04:38 Magnesium 1.3 mg/dL (1.7-2.9) L 07/18/20 04:38 Ferritin 1358 ng/mL (8-252) H 07/18/20 04:38 Total Bilirubin 0.20 mg/dL (0.2-1.0) 07/18/20 04:38 AST 17 Units/L (15-37) 07/18/20 04:38 ALT 11 Units/L (12-78) L 07/18/20 04:38 Alkaline Phosphatase 43 Units/L (46-116) L 07/18/20 04:38 Creatine Kinase 57 Units/L (26-192) 07/16/20 06:48 CK-MB (CK-2) < 1.0 ng/mL (0-4.0) 07/16/20 06:48 CK/CKMB % Calc 1.8 % (<4) 07/16/20 06:48 Troponin I < 0.02 ng/mL (0-1.5) 07/16/20 06:48 C-Reactive Protein 139.80 mg/L (0-3.0) H 07/18/20 04:38 B-Natriuretic Peptide 144 pg/mL (0-79) H 07/16/20 09:07 Total Protein 4.8 g/dL (6.4-8.2) L 07/18/20 04:38 Albumin 1.9 g/dL (3.4-5.0) L 07/18/20 04:38 Globulin 2.9 g/dL (2.5-4.5) 07/18/20 04:38 Albumin/Globulin Ratio 0.7 Ratio (1.1-2.1) L 07/18/20 04:38 Amylase 50 Units/L (25-115) 07/16/20 06:48 Amylase Cancelled 07/16/20 06:48 Lipase 108 Units/L (73-393) 07/16/20 06:48 Lipase Cancelled 07/16/20 06:48 Specimen Type Catherized urine 07/16/20 08:46 Urine Color Yellow (YELLOW) 07/16/20 08:46 Urine Appearance Clear (CLEAR) 07/16/20 08:46 Urine pH 6.0 (5.0 - 8.0) 07/16/20 08:46 Ur Specific [place] 1.015 (1.000-1.030) 07/16/20 08:46 Urine Protein 2+ (NEGATIVE) 07/16/20 08:46 Urine Glucose (UA) Negative (NEGATIVE) 07/16/20 08:46 Urine Ketones Negative (NEGATIVE) 07/16/20 08:46 Urine Occult Blood Negative (NEGATIVE) 07/16/20 08:46 Urine Nitrite Negative (NEGATIVE) 07/16/20 08:46 Urine Bilirubin Negative (NEGATIVE) 07/16/20 08:46 Urine Urobilinogen Normal (NORMAL) 07/16/20 08:46 Ur Leukocyte Esterase 1+ (NEGATIVE) 07/16/20 08:46 Urine RBC 0-2 /HPF (0-3) 07/16/20 08:46 Urine WBC 0-2 /HPF (0-5) 07/16/20 08:46 Ur Squamous Epith Cells Rare /HPF (NEGATIVE) 07/16/20 08:46 Amorphous Sediment Trace /HPF (NEGATIVE) 07/16/20 08:46 Urine Bacteria Trace /HPF (NEGATIVE) 07/16/20 08:46 Ur Culture Indicated? Yes/culture set up 07/16/20 08:46 Stool Description 15g unformed brown 07/16/20 10:58 Stool Description 15g unformed brown 07/16/20 10:58 Stl Occult Blood (IFOB) Positive (NEGATIVE) A 07/16/20 10:58 Stool for White Cells Positive (NEGATIVE) A 07/16/20 10:58 Stl C. diff Tox B Gene Positive (NEGATIVE) A 07/16/20 10:58 Stl C. diff 027-NAP1-BI Positive (NEGATIVE) A 07/16/20 10:58 Stool H. pylori Ag Negative (NEGATIVE) 07/16/20 10:58 C. difficile Toxin A&B Positive (NEGATIVE) A 07/16/20 10:58 Cryptosporid parvum Ag Negative (NEGATIVE) 07/16/20 10:58 Giardia lamblia Ag Negative (NEGATIVE) 07/16/20 10:58 SARS CoV-2 RNA Rapid JULIET Positive (NEGATIVE) A 07/16/20 06:02 - Plan (1) Bronchopneumonia Status: Acute Plan: 1/2NS AT 150 ML/HR, ALBUMIN 25% IV DAILY, LOVENOX 40MG SC BID, METOPROLOL 12.5MG PO BID, FLAGYL 500MG IV Q6H, VANCOMYCIN 250MG PO QID, LOMOTIL 1 TAB PO TI D PRN, REMDESIVIR 100MG IV DAILY, IVERMECTIN, DUONEBS QID, ASCORBIC ACID 1500MG IV Q6HR, TESSALON PERLES 200MG PO TID, TUSSIONEX SUSP 5ML PO Q12H PRN, PEPCID 20MG IV BID, ROBITUSSIN DM 10 ML PO QID, VSL 2 CAPS PO DAILY, MELATONIN 10MG PO HS, SOLU-MEDROL 125MG IV Q8H, ZOFRAN 4MG IV Q6H PRN, PROTONIX 40MG IV BID, PHENERGAN 12.5MG IM Q6H PRN, AND ZINC SULFATE 220MG PO DAILY. (2) COVID-19 virus infection Status: Acute (3) C. difficile diarrhea Status: Acute (4) Acute dehydration Status: Acute (5) Generalized weakness Status: Acute
[2020-07-18] MEDS: LOVENOX INJ 40 MG SYR SC SCH (20:20)
[2020-07-18] MEDS: MELATONIN PO SCH (20:20)
[2020-07-18] MEDS: BUTT CREAM (COMPOUND) TOP PRN (21:56)
[2020-07-19] MEDS: MAGNESIUM SULFATE 1 GRAM/100 mL PREMIX 1 GM/100 ML BAG IV PRN (01:00)
[2020-07-19] MEDS: FLAGYL IV PREMIX 500 MG BAG 500 MG/100 ML BAG IV SCH ×4 (02:16→21:52)
[2020-07-19] MEDS: ASCORBIC ACID INJ MULTI-DOSE VIAL 1,500 MG in NS 50 ML IV 50 ML IV SCH ×4 (02:16→21:51)
[2020-07-19] MEDS: SOLU-Medrol 125 MG VIAL IVP SCH ×4 (02:17→21:54)
[2020-07-19 07:22] LABS: BASOPHILS % (AUTO) 0.1 % (0.2-1.0); HEMATOCRIT 33.1 % (36.0-47.0); HEMOGLOBIN 11.2 g/dL (12.0-16.0); LYMPHOCYTES # (AUTO) 0.4 X10^3/uL (1.3-2.9); LYMPHOCYTES % (AUTO) 2.1 % (21.0-51.0); MEAN CORPUSCULAR HEMOGLOBIN 31.1 pg (27.0-34.0); MEAN CORPUSCULAR HGB CONC 33.7 g/dL (33.0-35.0); MEAN CORPUSCULAR VOLUME 92.3 fL (80.0-100.0); MONOCYTES # (AUTO) 0.5 x10^3/uL (0.3-0.8); MONOCYTES % (AUTO) 2.5 % (0.0-13.0); NEUTROPHILS # (AUTO) 18.1 x10^3/uL (2.2-4.8); NEUTROPHILS % (AUTO) 95.3 % (42.0-75.0); PLATELET COUNT 381 X10^3/uL (150.0-450.0); RED BLOOD COUNT 3.59 X10^6/uL (3.5-5.4)
--- NOTE | 2020-07-19 07:27 | RAD ---
HISTORYSOBSTUDYCHEST, 1 VIEWCOMPARISONJanuary 7thTECHNIQUEPortable chestFINDINGSThe heart size is stable. There are dense mitral annulus calcifications. There are progressive hazy bibasilar infiltrates and developing interstitial prominence is also noted with peribronchial thickening centrally. There is marginal blunting of the costophrenic sulci. No free air or pneumothorax is observed.IMPRESSIONProgressive hazy bibasilar airspace opacities which are suspicious for pneumonia.Marginal blunting of the costophrenic sulci for which trace effusions would be considered.Electronically signed by: ETELVINA MICHEL (Jul 19, 2020 07:27:19)
[2020-07-19 07:35] LABS: ALANINE AMINOTRANSFERASE 11 Units/L (12-78); ALBUMIN 2.6 g/dL (3.4-5.0); ALKALINE PHOSPHATASE 39 Units/L (46-116); ASPARTATE AMINO TRANSFERASE 24 Units/L (15-37); BLOOD UREA NITROGEN 24 mg/dL (7-18); CALCIUM 7.6 mg/dL (8.5-10.1); CARBON DIOXIDE 17.6 mmol/L (21-32); CHLORIDE 98 mmol/L (98-107); COR CA(FOR HYPOALB) 8.7 mg/dL (8.5-10.1); COR NA(FOR HYPERGLY) 127 mmol/L (136-145); CREATININE 0.91 mg/dL (0.55-1.02); SODIUM 126 mmol/L (136-145); TOTAL PROTEIN 4.8 g/dL (6.4-8.2); eGFR NON BLACK RACES > 60 (>60)
[2020-07-19] MEDS: TESSALON PERLES PO SCH ×3 (07:44→21:54)
[2020-07-19] MEDS: DUONEB 0.5 MG/3 MG (3 mL) NEB SCH ×4 (08:00→21:15)
[2020-07-19 08:15] LABS: BAND NEUTROPHILS % 6 % (0-10)
[2020-07-19 08:16] LABS: PLATELET MORPHOLOGY COMMENT NORMAL (NORMAL)
[2020-07-19] MEDS: ZINC SULFATE PO SCH (08:57)
[2020-07-19] MEDS: ROBITUSSIN DM PO SCH ×4 (08:57→21:53)
[2020-07-19] MEDS: VITAMIN D3 125 mcg (5,000 UNITS) PO SCH (08:57)
[2020-07-19] MEDS: VANCOMYCIN HCL 250 MG CAP PO SCH ×4 (09:02→21:54)
[2020-07-19] MEDS: VSL#3 PO SCH ×2 (09:02→09:46)
[2020-07-19] MEDS: LOPRESSOR TAB 25 MG PO SCH ×2 (09:03→21:52)
[2020-07-19] MEDS: LOVENOX INJ 40 MG SYR SC SCH ×2 (09:04→21:53)
[2020-07-19] MEDS: PROTONIX INJ 40 MG VIAL IVP SCH ×2 (09:05→21:53)
[2020-07-19] MEDS: PEPCID 20 MG IV PREMIX* 20 MG/50 ML BAG IV SCH (09:51)
[2020-07-19] MEDS: NS 1/2 1000 ML IV 1,000 ML IV SCH (10:29)
[2020-07-19] MEDS: ALBUMIN HUMAN 25%- 100 ML 100 ML IV SCH (10:29)
--- NOTE | 2020-07-19 11:28 | PCM.PROG ---
Progress Note - Progress Note for Day of Date of Exam: 07/19/20 - Subjective Subjective: IS BEING TREATED FOR BRONCHOPNEUMONIA DUE TO COVID-19, C DIFF DIARRHEA, ACUTE DEHYDRATION, AND GENERALIZED WEAKNESS. TODAY, SHE IS ALERT AND ORIENTED, LYING IN BED ON MORNING ROUNDS. SHE CONTINUES WITH COMPLAINTS OF WEAKNESS AND DECREASED APPETITE. DIARRHEA HAS SLOWED DOWN. SHE IS CURRENTLY ON ROOM AIR. HER SATURATIONS HAVE BEEN 96-98%. STAFF REPORTS THAT SHE HAS BEEN TACHYCARDIC THROUGHOUT THE NIGHT WITH HR 110-120s BPM. ON EXAMINATION, HEART IS REGULAR IN RATE AND RHYTYHM. BILATERAL LUNGS ARE NOTED WITH DIMINISHED LUNG SOUNDS THROUGHOUT. ABDOMEN IS ROUND, SOFT, AND NOTED WITH DIFFUSE TENDERNESS. HYPERACTIVE BOWEL SOUNDS ARE NOTED IN ALL QUADRANTS. HER VITALS THIS MORNING ARE: 98.0-100-18-97%RA-121/76. LABS WERE OBTAINED. ABNORMAL LAB VALUES INCLUDE THE FOLLOWING: WBC 19.0, HGB 11.2, HCT 33.1, D-DIMER 5.14, SODIUM 126, POTASSIUM 3.3, CARBON DIOXIDE 17.6, BUN 24, GLUCOSE 153, CALCIUM 7.6, FERRITIN 1433, ALT 11, ALK PHOS 39, CRP 47, TOTAL PROTEIN 4.8, ALBUMIN 2.6. STOOL, URINE, AND BLOOD CULTURES ARE ALL NEGATIVE. A CHEST XRAY WAS OBTAINED TODAY AND REVEALED: Progres sive hazy bibasilar airspace opacities which are suspicious for pneumonia. Marginal blunting of the costophrenic sulci for which trace effusions would be considered. SHE IS CURRENTLY RECEIVING 1/2NS AT 150 ML/HR, FLAGYL 500MG IV Q6H, VANCOMYCIN 250MG PO QID, LOMOTIL 1 TAB TID PRN, REMDESIVIR 100MG IV DAILY, IVERMECTIN, DUONEBS QID, ASCORBIC ACID 1500MG IV Q6HR, TESSALON PERLES 200MG PO TID, TUSSIONEX SUSP 5ML PO Q12H PRN, PEPCID 20MG IV BID, ROBITUSSIN DM 10 ML PO QID, VSL 2 CAPS PO DAILY, MELATONIN 10MG PO HS, SOLU-MEDROL 125MG IV Q6H, ZOFRAN 4MG IV Q6H PRN, LOVENOX 40MG SC BID, ALBUMIN 25% IV DAILY, METOPROLOL 12.5MG PO BID, PROTONIX 40MG IV BID, PHENERGAN 12.5MG IM Q6H PRN, AND ZINC SULFATE 220MG PO DAILY. WE WILL CONTINUE WITH CURRENT PLAN OF CARE TODAY. OTHERWISE, WE PLAN TO FOLLOW UP WITH AM LABS, CHEST XRAY, AND CONTINUE TO MONITOR. TIME SPENT ON CLINICAL ASSESSMENT, PHYSICAL EXAMINATION, REVIEWING LABS/IMAGING, AND DECISION MAKING GREATER THAN 75 MINUTES. - Past Medical Family Social History Past Med/Fam/Surg Hx: No changes since H&P Allergies: Allergies No Known Drug Allergies Allergy (Verified 03/12/19 18:07) - Review of Systems ROS: No change since H&P - Vital Signs and I&O's Vital Signs: Temperature 98.0 F Pulse Rate [Right Brachial] 108 Pulse Rate [Left] 102 Pulse Rate 98 Respiratory Rate 18 Blood Pressure [Right Calf] 132/63 Blood Pressure [Right Arm] 121/76 Blood Pressure 114/57 O2 Sat by Pulse Oximetry 97 Intake and Output: Intake & Output 07/16/20 07/17/20 07/18/20 07/19/20 11:59 11:59 11:59 11:59 Intake Total 2626 / 2626 2516 / 2516 2853 / 2853 Output Total 1020 / 1020 550 / 550 1300 / 1300 Balance 1606 / 1606 1965 / 1965 1553 / 1553 - Physical Exam Oriented: Normal Eyes: Normal Ear: Normal Nose: Normal Throat: Normal Respiratory: Generalized, Diminished Cardiovascular: Tachycardia. negative: S3, S4, Murmur : Normal Auscultation: Bowel Sounds: Increased Palpation: Normal Tenderness: Diffuse, Mild Skin: Normal Musculoskeletal: Normal Psychiatric: Normal Mood Description: Calm Affect: Normal Speech Pattern: Clear, Appropriate - Laboratory and Diagnostics Result Diagrams: 07/19/20 06:20 07/19/20 06:20 Labs: 07/16/20 06:48 Blood Blood Culture - Preliminary 07/16/20 06:40 Blood Blood Culture - Preliminary 07/16/20 10:58 Stool Stool Culture - Final 07/16/20 10:58 Stool - Final 07/16/20 08:46 Urine,Catheterized Urine Culture - Final Laboratory WBC 19.0 X10^3/uL (3.6-10.0) H 07/19/20 06:20 RBC 3.59 X10^6/uL (3.5-5.4) 07/19/20 06:20 Hgb 11.2 g/dL (12.0-16.0) L 07/19/20 06:20 Hct 33.1 % (36.0-47.0) L 07/19/20 06:20 MCV 92.3 fL (80.0-100.0) 07/19/20 06:20 MCH 31.1 pg (27.0-34.0) 07/19/20 06:20 MCHC 33.7 g/dL (33.0-35.0) 07/19/20 06:20 RDW 15.0 % (11.6-16.5) 07/19/20 06:20 Plt Count 381 X10^3/uL (150.0-450.0) 07/19/20 06:20 Plt Count Comment Adequate (ADEQUATE) 07/19/20 06:20 MPV 8.0 fL (7.4-11.0) 07/19/20 06:20 Neut % (Auto) 95.3 % (42.0-75.0) H 07/19/20 06:20 Lymph % (Auto) 2.1 % (21.0-51.0) L 07/19/20 06:20 [place] % (Auto) 2.5 % (0.0-13.0) 07/19/20 06:20 Eos % (Auto) 0.0 % (0.9-2.9) L 07/19/20 06:20 Baso % (Auto) 0.1 % (0.2-1.0) L 07/19/20 06:20 Neut # (Auto) 18.1 x10^3/uL (2.2-4.8) H 07/19/20 06:20 Lymph # (Auto) 0.4 X10^3/uL (1.3-2.9) L 07/19/20 06:20 [place] # (Auto) 0.5 x10^3/uL (0.3-0.8) 07/19/20 06:20 Eos # (Auto) 0.0 x10^3/uL (0.0-0.2) 07/19/20 06:20 Baso # (Auto) 0.0 X10^3/uL (0.0-0.1) 07/19/20 06:20 Absolute Nucleated RBC 0.0 /100WBC 07/19/20 06:20 Total Counted 100 07/19/20 06:20 Neutrophils % (Manual) 86 % (39-76) H 07/19/20 06:20 Band Neutrophils % 6 % (0-10) 07/19/20 06:20 Lymphocytes % (Manual) 4 % (13-43) L 07/19/20 06:20 Monocytes % (Manual) 4 % (4-9) 07/19/20 06:20 Plt Morphology Comment Normal (NORMAL) 07/19/20 06:20 RBC Morphology Normal (NORMAL) 07/19/20 06:20 Crenated Cell 1+ A 07/18/20 04:38 D-Dimer 5.14 ug/ml (0.0-0.57) H* 07/19/20 06:20 Sample Site R rad 07/18/20 05:50 ABG pH 7.410 (7.35-7.45) 07/18/20 05:50 ABG pCO2 21.0 mmHg (35.0-45.0) L 07/18/20 05:50 ABG pO2 96.0 mmHg (80.0-100.0) 07/18/20 05:50 ABG HCO3 13.3 mmol/L (22-26) L* 07/18/20 05:50 ABG O2 Saturation 98.0 % (90-100) 07/18/20 05:50 ABG Base Excess -9.3 mmol/L (-2.0-2.0) L 07/18/20 05:50 Chris Test Poss 07/18/20 05:50 A-a Gradient 27.0 mmHg 07/18/20 05:50 FiO2 21.0 07/18/20 05:50 Blood Gas Comments Annie well 07/18/20 05:50 Sodium 126 mmol/L (136-145) L 07/19/20 06:20 Corrected Sodium 127 mmol/L (136-145) L 07/19/20 06:20 Potassium 3.3 mmol/L (3.5-5.1) L 07/19/20 06:20 Chloride 98 mmol/L (98-107) 07/19/20 06:20 Carbon Dioxide 17.6 mmol/L (21-32) L 07/19/20 06:20 BUN 24 mg/dL (7-18) H 07/19/20 06:20 Creatinine 0.91 mg/dL (0.55-1.02) 07/19/20 06:20 Est GFR (MDRD) Af Amer > 60 (>60) 07/19/20 06:20 Est GFR (MDRD) Non-Af > 60 (>60) 07/19/20 06:20 Glucose 153 mg/dL (65-99) H 07/19/20 06:20 Lactic Acid 3.8 mmol/L (0.4-2.0) H 07/16/20 06:48 Lactic Acid Cancelled 07/16/20 06:48 Calcium 7.6 mg/dL (8.5-10.1) L 07/19/20 06:20 Corrected Calcium 8.7 mg/dL (8.5-10.1) 07/19/20 06:20 Magnesium 1.3 mg/dL (1.7-2.9) L 07/18/20 04:38 Ferritin 1433 ng/mL (8-252) H 07/19/20 06:20 Total Bilirubin 0.20 mg/dL (0.2-1.0) 07/19/20 06:20 AST 24 Units/L (15-37) 07/19/20 06:20 ALT 11 Units/L (12-78) L 07/19/20 06:20 Alkaline Phosphatase 39 Units/L (46-116) L 07/19/20 06:20 Creatine Kinase 57 Units/L (26-192) 07/16/20 06:48 CK-MB (CK-2) < 1.0 ng/mL (0-4.0) 07/16/20 06:48 CK/CKMB % Calc 1.8 % (<4) 07/16/20 06:48 Troponin I < 0.02 ng/mL (0-1.5) 07/16/20 06:48 C-Reactive Protein 47.00 mg/L (0-3.0) H 07/19/20 06:20 B-Natriuretic Peptide 144 pg/mL (0-79) H 07/16/20 09:07 Total Protein 4.8 g/dL (6.4-8.2) L 07/19/20 06:20 Albumin 2.6 g/dL (3.4-5.0) L 07/19/20 06:20 Globulin 2.2 g/dL (2.5-4.5) L 07/19/20 06:20 Albumin/Globulin Ratio 1.2 Ratio (1.1-2.1) 07/19/20 06:20 Amylase 50 Units/L (25-115) 07/16/20 06:48 Amylase Cancelled 07/16/20 06:48 Lipase 108 Units/L (73-393) 07/16/20 06:48 Lipase Cancelled 07/16/20 06:48 Specimen Type Catherized urine 07/16/20 08:46 Urine Color Yellow (YELLOW) 07/16/20 08:46 Urine Appearance Clear (CLEAR) 07/16/20 08:46 Urine pH 6.0 (5.0 - 8.0) 07/16/20 08:46 Ur Specific [place] 1.015 (1.000-1.030) 07/16/20 08:46 Urine Protein 2+ (NEGATIVE) 07/16/20 08:46 Urine Glucose (UA) Negative (NEGATIVE) 07/16/20 08:46 Urine Ketones Negative (NEGATIVE) 07/16/20 08:46 Urine Occult Blood Negative (NEGATIVE) 07/16/20 08:46 Urine Nitrite Negative (NEGATIVE) 07/16/20 08:46 Urine Bilirubin Negative (NEGATIVE) 07/16/20 08:46 Urine Urobilinogen Normal (NORMAL) 07/16/20 08:46 Ur Leukocyte Esterase 1+ (NEGATIVE) 07/16/20 08:46 Urine RBC 0-2 /HPF (0-3) 07/16/20 08:46 Urine WBC 0-2 /HPF (0-5) 07/16/20 08:46 Ur Squamous Epith Cells Rare /HPF (NEGATIVE) 07/16/20 08:46 Amorphous Sediment Trace /HPF (NEGATIVE) 07/16/20 08:46 Urine Bacteria Trace /HPF (NEGATIVE) 07/16/20 08:46 Ur Culture Indicated? Yes/culture set up 07/16/20 08:46 Stool Description 15g unformed brown 07/16/20 10:58 Stool Description 15g unformed brown 07/16/20 10:58 Stl Occult Blood (IFOB) Positive (NEGATIVE) A 07/16/20 10:58 Stool for White Cells Positive (NEGATIVE) A 07/16/20 10:58 Stl C. diff Tox B Gene Positive (NEGATIVE) A 07/16/20 10:58 Stl C. diff 027-NAP1-BI Positive (NEGATIVE) A 07/16/20 10:58 Stool H. pylori Ag Negative (NEGATIVE) 07/16/20 10:58 C. difficile Toxin A&B Positive (NEGATIVE) A 07/16/20 10:58 Cryptosporid parvum Ag Negative (NEGATIVE) 07/16/20 10:58 Giardia lamblia Ag Negative (NEGATIVE) 07/16/20 10:58 SARS CoV-2 RNA Rapid JULIET Positive (NEGATIVE) A 07/16/20 06:02 - Plan (1) Bronchopneumonia Status: Acute Plan: 1/2NS AT 150 ML/HR, ALBUMIN 25% IV DAILY, LOVENOX 40MG SC BID, METOPROLOL 12.5MG PO BID, FLAGYL 500MG IV Q6H, VANCOMYCIN 250MG PO QID, LOMOTIL 1 TAB PO TID PRN, REMDESIVIR 100MG IV DAILY, IVERMECTIN, DUONEBS QID, ASCORBIC ACID 1500MG IV Q6HR, TESSALON PERLES 200MG PO TID, TUSSIONEX SUSP 5ML PO Q12H PRN, P EPCID 20MG IV BID, ROBITUSSIN DM 10 ML PO QID, VSL 2 CAPS PO DAILY, MELATONIN 10MG PO HS, SOLU-MEDROL 125MG IV Q8H, ZOFRAN 4MG IV Q6H PRN, PROTONIX 40MG IV BID, PHENERGAN 12.5MG IM Q6H PRN, AND ZINC SULFATE 220MG PO DAILY. (2) COVID-19 virus infection Status: Acute (3) C. difficile diarrhea Status: Acute (4) Acute dehydration Status: Acute (5) Generalized weakness Status: Acute
[2020-07-19] MEDS: REMDESIVIR 100 MG in NS 250 ML IV 250 ML IV SCH (12:14)
[2020-07-19] MEDS: K-RIDER 10 MEQ/NS 100 ML 10 MEQ/100 ML BAG IV PRN (13:27)
[2020-07-19] MEDS: POTASSIUM CHLORIDE LIQ 20 MEQ UDC PO PRN (16:03)
--- NOTE | 2020-07-19 17:49 | RAD ---
Abdomen radiograph single viewIndication: Distended abdomen.COMPARISONJan2020 CT abdomen and pelvisFINDINGS: Worsening dilatation of the colon, with possible wall thickening. No gross free air or pneumatosis seen.IMPRESSIONDilated colon, with questionable wall thickening. Colitis versus distal obstruction. Ischemia not entirely excluded. Correlate with lactic acid values and clinical examination.Electronically signed by: TORI JEFFERSON (Jul 19, 2020 17:47:36)
[2020-07-19] MEDS: MELATONIN PO SCH (21:52)
[2020-07-19] MEDS ORDERED: NS 1/2 1000 ML IV 1,000 ML IV ONE (22:13)
[2020-07-20] MEDS: NS 1/2 1000 ML IV 1,000 ML IV SCH ×2 (01:30→14:00)
[2020-07-20] MEDS: FLAGYL IV PREMIX 500 MG BAG 500 MG/100 ML BAG IV SCH ×4 (04:19→20:56)
[2020-07-20] MEDS: ASCORBIC ACID INJ MULTI-DOSE VIAL 1,500 MG in NS 50 ML IV 50 ML IV SCH ×4 (04:19→20:56)
[2020-07-20] MEDS: SOLU-Medrol 125 MG VIAL IVP SCH ×4 (04:19→20:59)
[2020-07-20] MEDS: TESSALON PERLES PO SCH ×4 (05:27→22:03)
[2020-07-20 05:48] LABS: BASOPHILS # (AUTO) 0.2 X10^3/uL (0.0-0.1); BASOPHILS % (AUTO) 0.7 % (0.2-1.0); EOSINOPHILS % (AUTO) 0.1 % (0.9-2.9); HEMATOCRIT 35.8 % (36.0-47.0); HEMOGLOBIN 11.9 g/dL (12.0-16.0); LYMPHOCYTES # (AUTO) 0.5 X10^3/uL (1.3-2.9); LYMPHOCYTES % (AUTO) 2.3 % (21.0-51.0); MEAN CORPUSCULAR HEMOGLOBIN 30.9 pg (27.0-34.0); MEAN CORPUSCULAR HGB CONC 33.2 g/dL (33.0-35.0); MONOCYTES # (AUTO) 0.8 x10^3/uL (0.3-0.8); MONOCYTES % (AUTO) 3.7 % (0.0-13.0); NEUTROPHILS # (AUTO) 20.4 x10^3/uL (2.2-4.8); NEUTROPHILS % (AUTO) 93.2 % (42.0-75.0); PLATELET COUNT 381 X10^3/uL (150.0-450.0); RED BLOOD COUNT 3.85 X10^6/uL (3.5-5.4); RED CELL DISTRIBUTION WIDTH 15.3 % (11.6-16.5); WHITE BLOOD COUNT 21.8 X10^3/uL (3.6-10.0)
[2020-07-20 06:08] LABS: ALANINE AMINOTRANSFERASE 11 Units/L (12-78); ALBUMIN 2.8 g/dL (3.4-5.0); ALKALINE PHOSPHATASE 41 Units/L (46-116); ASPARTATE AMINO TRANSFERASE 15 Units/L (15-37); BLOOD UREA NITROGEN 23 mg/dL (7-18); CALCIUM 7.4 mg/dL (8.5-10.1); CARBON DIOXIDE 17.5 mmol/L (21-32); CHLORIDE 100 mmol/L (98-107); COR CA(FOR HYPOALB) 8.4 mg/dL (8.5-10.1); COR NA(FOR HYPERGLY) 128 mmol/L (136-145); CREATININE 0.75 mg/dL (0.55-1.02); SODIUM 127 mmol/L (136-145); TOTAL PROTEIN 4.6 g/dL (6.4-8.2); eGFR NON BLACK RACES > 60 (>60)
--- NOTE | 2020-07-20 06:16 | RAD ---
Chest AP portableIndication: Dyspnea. COVID-19 pneumoniaComparison July 19, 2020FINDINGSThere is no pneumothorax. There is prominent heart size. Patchy bilateral pulmonary opacities are noted. Monitor leads obscure detail. Abdominal loops of bowel remain prominent, partially visualized.IMPRESSIONPatchy pulmonary opacities of viral pneumonitis, similar to the prior, worse in the right infrahilar region.Prominent heart size and chronic lung changes, similar to the prior.Persistent gas distention of bowel loops. Please review previous radiograph of the abdomen and report. Follow-up with further imaging as needed.Electronically signed by: TORI JEFFERSON (Jul 20, 2020 06:15:15)
[2020-07-20 06:44] LABS: PLATELET MORPHOLOGY COMMENT NORMAL (NORMAL)
[2020-07-20] MEDS: ALBUMIN HUMAN 25%- 100 ML 100 ML IV SCH (08:25)
[2020-07-20] MEDS: VSL#3 PO SCH (08:47)
[2020-07-20] MEDS: ROBITUSSIN DM PO SCH ×6 (08:47→20:58)
[2020-07-20] MEDS: LOVENOX INJ 40 MG SYR SC SCH ×2 (08:48→20:57)
[2020-07-20] MEDS: VANCOMYCIN HCL 250 MG CAP PO SCH ×4 (08:49→20:59)
[2020-07-20] MEDS: VITAMIN D3 125 mcg (5,000 UNITS) PO SCH (08:49)
[2020-07-20] MEDS: ZINC SULFATE PO SCH (08:49)
[2020-07-20] MEDS: PROTONIX INJ 40 MG VIAL IVP SCH ×2 (08:50→20:58)
[2020-07-20] MEDS: LOPRESSOR TAB 25 MG PO SCH ×2 (08:50→20:57)
[2020-07-20] MEDS: PEPCID 20 MG IV PREMIX* 20 MG/50 ML BAG IV SCH (09:10)
[2020-07-20] MEDS: REMDESIVIR 100 MG in NS 250 ML IV 250 ML IV SCH (09:54)
[2020-07-20] MEDS: DUONEB 0.5 MG/3 MG (3 mL) NEB SCH (10:50)
--- NOTE | 2020-07-20 13:52 | PCM.PROG ---
Progress Note Progress Note for Day of Date of Exam: 07/20/20 Subjective Subjective: Patient seen at bedside, no overnight events. Patient's daughter also present in the room to discuss care. Patient is being treated for bronchopneumonia due to COVID-19 and C. diff infection. Patient has been having worsening abdominal distension and pain. She has not been able to et much due to nausea and vomiting. Patient was admitted in [place] last month for similar Sx. She was found to have bowel obstruction and C.diff. She had EGD and colonoscopy done there by Dr. Ley and was told she was not a candidate for surgery for the SBO. She was treated with NGT and stool softeners. She was discharged but started having similar symptoms few days later. Patient also has intermittent confusion which is chronic as per daughter. Patient is having BM's, last one this morning which started to form. Patient is currently on room air. Labs: WBC 21.8 Hgb 11.9 Na: 128 CO2 17.5 BUN/Cr: 23/0.75 CRP 17.8 Lactic acid: 1.4, down from 3.2 FOBT + C diff + CXR: patchy bilateral pulmonary opacities KUB: dilated colon, concerning for colitis vs distal obstruction. Ischemia cannot be excluded. Plan: Dr. Smith's consult pending, follow recommendations. Change to NPO status. Continue IV Flagyl and oral Vancomycin. Continue Solumedrol and Remdesivir. Change IVF to NS at 75cc/hr. Continue pepcid and anti-emetics. Monitor AM labs and imaging. Time spent for clinical assessment, physical examination, reviewing labs/imaging, documentation and decision making over 45 mins. Past Medical Family Social History Past Med/Fam/Surg Hx: No changes since H&P Allergies: Allergies No Known Drug Allergies Allergy (Verified 03/12/19 18:07) Review of Systems ROS: No change since H&P Vital Signs and I&O's Vital Signs: Temperature 97.8 F Pulse Rate [Right Brachial] 105 Pulse Rate [Left] 102 Pulse Rate 96 Respiratory Rate 20 Blood Pressure [Right Calf] 132/63 Blood Pressure [Right Arm] 107/70 Blood Pressure 114/57 O2 Sat by Pulse Oximetry 92 Intake and Output: Intake & Output 07/17/20 07/18/20 07/19/20 07/20/20 23:59 23:59 23:59 23:59 Intake Total 3051 / 3051 2786 / 2786 2450 / 2450 141 / 141 Output Total 550 / 550 1000 / 1000 800 / 800 150 / 150 Balance 2501 / 2501 1786 / 1786 1650 / 1650 -9 / -9 Physical Exam Oriented: Not Oriented Eyes: Normal Ear: Normal Nose: Normal Throat: Normal Respiratory: Generalized and Diminished Cardiovascular: Normal Auscultation: Bowel Sounds: Increased Tenderness: Diffuse, Mild, Rigidity and Other (distended ) Skin: Decreased [place] Musculoskeletal: Normal Psychiatric: Normal Mood Description: Calm Affect: Normal Speech Pattern: Clear and Appropriate Laboratory and Diagnostics Result Diagrams: 07/20/20 05:30 07/20/20 05:30 Labs: 07/16/20 06:48 Blood Blood Culture - Preliminary 07/16/20 06:40 Blood Blood Culture - Preliminary 07/16/20 10:58 Stool Stool Culture - Final 07/16/20 10:58 Stool - Final 07/16/20 08:46 Urine,Catheterized Urine Culture - Final Laboratory WBC 21.8 X10^3/uL (3.6-10.0) H 07/20/20 05:30 RBC 3.85 X10^6/uL (3.5-5.4) 07/20/20 05:30 Hgb 11.9 g/dL (12.0-16.0) L 07/20/20 05:30 Hct 35.8 % (36.0-47.0) L 07/20/20 05:30 MCV 93.0 fL (80.0-100.0) 07/20/20 05:30 MCH 30.9 pg (27.0-34.0) 07/20/20 05:30 MCHC 33.2 g/dL (33.0-35.0) 07/20/20 05:30 RDW 15.3 % (11.6-16.5) 07/20/20 05:30 Plt Count 381 X10^3/uL (150.0-450.0) 07/20/20 05:30 Plt Count Comment Adequate (ADEQUATE) 07/20/20 05:30 MPV 8.0 fL (7.4-11.0) 07/20/20 05:30 Neut % (Auto) 93.2 % (42.0-75.0) H 07/20/20 05:30 Lymph % (Auto) 2.3 % (21.0-51.0) L 07/20/20 05:30 [place] % (Auto) 3.7 % (0.0-13.0) 07/20/20 05:30 Eos % (Auto) 0.1 % (0.9-2.9) L 07/20/20 05:30 Baso % (Auto) 0.7 % (0.2-1.0) 07/20/20 05:30 Neut # (Auto) 20.4 x10^3/uL (2.2-4.8) H 07/20/20 05:30 Lymph # (Auto) 0.5 X10^3/uL (1.3-2.9) L 07/20/20 05:30 [place] # (Auto) 0.8 x10^3/uL (0.3-0.8) 07/20/20 05:30 Eos # (Auto) 0.0 x10^3/uL (0.0-0.2) 07/20/20 05:30 Baso # (Auto) 0.2 X10^3/uL (0.0-0.1) H 07/20/20 05:30 Absolute Nucleated RBC 0.0 /100WBC 07/20/20 05:30 Total Counted 100 07/20/20 05:30 Neutrophils % (Manual) 92 % (39-76) H 07/20/20 05:30 Band Neutrophils % 92 % (0-10) H 07/20/20 05:30 Lymphocytes % (Manual) 3 % (13-43) L 07/20/20 05:30 Monocytes % (Manual) 3 % (4-9) L 07/20/20 05:30 Plt Morphology Comment Normal (NORMAL) 07/20/20 05:30 RBC Morphology Normal (NORMAL) 07/20/20 05:30 Crenated Cell 1+ A 07/18/20 04:38 D-Dimer 4.50 ug/ml (0.0-0.57) H* 07/20/20 05:30 Sample Site R rad 07/18/20 05:50 ABG pH 7.410 (7.35-7.45) 07/18/20 05:50 ABG pCO2 21.0 mmHg (35.0-45.0) L 07/18/20 05:50 ABG pO2 96.0 mmHg (80.0-100.0) 07/18/20 05:50 ABG HCO3 13.3 mmol/L (22-26) L* 07/18/20 05:50 ABG O2 Saturation 98.0 % (90-100) 07/18/20 05:50 ABG Base Excess -9.3 mmol/L (-2.0-2.0) L 07/18/20 05:50 Chris Test Poss 07/18/20 05:50 A-a Gradient 27.0 mmHg 07/18/20 05:50 FiO2 21.0 07/18/20 05:50 Blood Gas Comments Annie well 07/18/20 05:50 Sodium 127 mmol/L (136-145) L 07/20/20 05:30 Corrected Sodium 128 mmol/L (136-145) L 07/20/20 05:30 Potassium 4.2 mmol/L (3.5-5.1) 07/20/20 05:30 Chloride 100 mmol/L (98-107) 07/20/20 05:30 Carbon Dioxide 17.5 mmol/L (21-32) L 07/20/20 05:30 BUN 23 mg/dL (7-18) H 07/20/20 05:30 Creatinine 0.75 mg/dL (0.55-1.02) 07/20/20 05:30 Est GFR (MDRD) Af Amer > 60 (>60) 07/20/20 05:30 Est GFR (MDRD) Non-Af > 60 (>60) 07/20/20 05:30 Glucose 162 mg/dL (65-99) H 07/20/20 05:30 Lactic Acid 1.4 mmol/L (0.4-2.0) 07/20/20 05:30 Calcium 7.4 mg/dL (8.5-10.1) L 07/20/20 05:30 Corrected Calcium 8.4 mg/dL (8.5-10.1) L 07/20/20 05:30 Magnesium 2.2 mg/dL (1.7-2.9) 07/20/20 05:30 Ferritin 1361 ng/mL (8-252) H 07/20/20 05:30 Total Bilirubin 0.40 mg/dL (0.2-1.0) 07/20/20 05:30 AST 15 Units/L (15-37) 07/20/20 05:30 ALT 11 Units/L (12-78) L 07/20/20 05:30 Alkaline Phosphatase 41 Units/L (46-116) L 07/20/20 05:30 Creatine Kinase 57 Units/L (26-192) 07/16/20 06:48 CK-MB (CK-2) < 1.0 ng/mL (0-4.0) 07/16/20 06:48 CK/CKMB % Calc 1.8 % (<4) 07/16/20 06:48 Troponin I < 0.02 ng/mL (0-1.5) 07/16/20 06:48 C-Reactive Protein 17.80 mg/L (0-3.0) H 07/20/20 05:30 B-Natriuretic Peptide 144 pg/mL (0-79) H 07/16/20 09:07 Total Protein 4.6 g/dL (6.4-8.2) L 07/20/20 05:30 Albumin 2.8 g/dL (3.4-5.0) L 07/20/20 05:30 Globulin 1.8 g/dL (2.5-4.5) L 07/20/20 05:30 Albumin/Globulin Ratio 1.6 Ratio (1.1-2.1) 07/20/20 05:30 Amylase 50 Units/L (25-115) 07/16/20 06:48 Amylase Cancelled 07/16/20 06:48 Lipase 108 Units/L (73-393) 07/16/20 06:48 Lipase Cancelled 07/16/20 06:48 Specimen Type Catherized urine 07/16/20 08:46 Urine Color Yellow (YELLOW) 07/16/20 08:46 Urine Appearance Clear (CLEAR) 07/16/20 08:46 Urine pH 6.0 (5.0 - 8.0) 07/16/20 08:46 Ur Specific [place] 1.015 (1.000-1.030) 07/16/20 08:46 Urine Protein 2+ (NEGATIVE) 07/16/20 08:46 Urine Glucose (UA) Negative (NEGATIVE) 07/16/20 08:46 Urine Ketones Negative (NEGATIVE) 07/16/20 08:46 Urine Occult Blood Negative (NEGATIVE) 07/16/20 08:46 Urine Nitrite Negative (NEGATIVE) 07/16/20 08:46 Urine Bilirubin Negative (NEGATIVE) 07/16/20 08:46 Urine Urobilinogen Normal (NORMAL) 07/16/20 08:46 Ur Leukocyte Esterase 1+ (NEGATIVE) 07/16/20 08:46 Urine RBC 0-2 /HPF (0-3) 07/16/20 08:46 Urine WBC 0-2 /HPF (0-5) 07/16/20 08:46 Ur Squamous Epith Cells Rare /HPF (NEGATIVE) 07/16/20 08:46 Amorphous Sediment Trace /HPF (NEGATIVE) 07/16/20 08:46 Urine Bacteria Trace /HPF (NEGATIVE) 07/16/20 08:46 Ur Culture Indicated? Yes/culture set up 07/16/20 08:46 Stool Description 15g unformed brown 07/16/20 10:58 Stool Description 15g unformed brown 07/16/20 10:58 Stl Occult Blood (IFOB) Positive (NEGATIVE) A 07/16/20 10:58 Stool for White Cells Positive (NEGATIVE) A 07/16/20 10:58 Stl C. diff Tox B Gene Positive (NEGATIVE) A 07/16/20 10:58 Stl C. diff 027-NAP1-BI Positive (NEGATIVE) A 07/16/20 10:58 Stool H. pylori Ag Negative (NEGATIVE) 07/16/20 10:58 C. difficile Toxin A&B Positive (NEGATIVE) A 07/16/20 10:58 Cryptosporid parvum Ag Negative (NEGATIVE) 07/16/20 10:58 Giardia lamblia Ag Negative (NEGATIVE) 07/16/20 10:58 SARS CoV-2 RNA Rapid JULIET Positive (NEGATIVE) A 07/16/20 06:02 Plan (1) Bronchopneumonia: Status: Acute (2) COVID-19 virus infection: Status: Acute (3) C. difficile diarrhea: Status: Acute (4) Acute dehydration: Status: Acute (5) Generalized weakness: Status: Acute (6) Abdominal distension: Status: Acute
[2020-07-20] MEDS: MAGIC MOUTHWASH MT SCH ×3 (13:58→20:57)
--- NOTE | 2020-07-20 14:21 | RAD ---
HISTORYBowel [id number] is similar gas distention of the colon. No free air is identified.IMPRESSIONStable exam with similar gas distended colon.Electronically signed by: Mendel Rios (Jul 20, 2020 14:19:46)
[2020-07-20] MEDS ORDERED: FLEET ENEMA ADULT PR ONE (14:54)
[2020-07-20] MEDS: DIFLUCAN PO SCH (15:06)
[2020-07-20] MEDS: NS 1000 ML 1,000 ML IV SCH (15:15)
[2020-07-20] MEDS: IVERMECTIN PO SCH (15:15)
[2020-07-20] MEDS: ACCUNEB 1.25 MG NEBULE NEB SCH ×3 (17:40→21:30)
[2020-07-20] MEDS: MELATONIN PO SCH (20:58)
[2020-07-20] MEDS ORDERED: PHENOBARBITAL SODIUM INJ 65 MG VIAL IVP PRN (22:14)
[2020-07-21] MEDS: ASCORBIC ACID INJ MULTI-DOSE VIAL 1,500 MG in NS 50 ML IV 50 ML IV SCH ×4 (03:57→22:21)
[2020-07-21] MEDS: SOLU-Medrol 125 MG VIAL IVP SCH ×4 (03:58→21:58)
[2020-07-21] MEDS: FLAGYL IV PREMIX 500 MG BAG 500 MG/100 ML BAG IV SCH ×4 (03:58→21:30)
[2020-07-21 05:49] LABS: BASOPHILS % (AUTO) 0.1 % (0.2-1.0); EOSINOPHILS # (AUTO) 0.5 x10^3/uL (0.0-0.2); EOSINOPHILS % (AUTO) 1.9 % (0.9-2.9); HEMATOCRIT 34.6 % (36.0-47.0); HEMOGLOBIN 11.6 g/dL (12.0-16.0); LYMPHOCYTES # (AUTO) 0.6 X10^3/uL (1.3-2.9); LYMPHOCYTES % (AUTO) 2.4 % (21.0-51.0); MEAN CORPUSCULAR HGB CONC 33.4 g/dL (33.0-35.0); MEAN CORPUSCULAR VOLUME 92.6 fL (80.0-100.0); MEAN PLATELET VOLUME 8.4 fL (7.4-11.0); MONOCYTES # (AUTO) 0.9 x10^3/uL (0.3-0.8); MONOCYTES % (AUTO) 3.7 % (0.0-13.0); NEUTROPHILS # (AUTO) 22.5 x10^3/uL (2.2-4.8); NEUTROPHILS % (AUTO) 91.9 % (42.0-75.0); PLATELET COUNT 349 X10^3/uL (150.0-450.0); RED BLOOD COUNT 3.74 X10^6/uL (3.5-5.4); RED CELL DISTRIBUTION WIDTH 15.1 % (11.6-16.5); WHITE BLOOD COUNT 24.4 X10^3/uL (3.6-10.0)
[2020-07-21 06:07] LABS: ALANINE AMINOTRANSFERASE 14 Units/L (12-78); ALBUMIN 2.9 g/dL (3.4-5.0); ALKALINE PHOSPHATASE 45 Units/L (46-116); ASPARTATE AMINO TRANSFERASE 20 Units/L (15-37); BLOOD UREA NITROGEN 22 mg/dL (7-18); CALCIUM 7.6 mg/dL (8.5-10.1); CARBON DIOXIDE 16.6 mmol/L (21-32); CHLORIDE 104 mmol/L (98-107); COR CA(FOR HYPOALB) 8.5 mg/dL (8.5-10.1); COR NA(FOR HYPERGLY) 132 mmol/L (136-145); CREATININE 0.69 mg/dL (0.55-1.02); SODIUM 131 mmol/L (136-145); TOTAL PROTEIN 4.7 g/dL (6.4-8.2); eGFR NON BLACK RACES > 60 (>60)
[2020-07-21 06:25] LABS: PLATELET MORPHOLOGY COMMENT NORMAL (NORMAL)
--- NOTE | 2020-07-21 06:32 | RAD ---
Chest AP portableIndication: Dyspnea. COVID-19 infectionComparison July 20, 2020FINDINGSMonitoring leads obscure minimal detail. There is no pneumothorax. Patchy right infrahilar opacity persists. Heart size is prominent. Gas distended bowel loops partially visualizedIMPRESSIONNo change from the prior.Electronically signed by: TORI JEFFERSON (Jul 21, 2020 06:31:02)
[2020-07-21] MEDS: NS 1000 ML 1,000 ML IV SCH ×2 (06:45→22:21)
[2020-07-21] MEDS: TESSALON PERLES PO SCH ×3 (06:46→21:57)
[2020-07-21] MEDS: ACCUNEB 1.25 MG NEBULE NEB SCH ×4 (08:00→20:40)
[2020-07-21] MEDS: ALBUMIN HUMAN 25%- 100 ML 100 ML IV SCH (08:11)
[2020-07-21] MEDS: LOPRESSOR TAB 25 MG PO SCH ×2 (08:49→21:56)
[2020-07-21] MEDS: VSL#3 PO SCH (08:49)
[2020-07-21] MEDS: ZINC SULFATE PO SCH (08:49)
[2020-07-21] MEDS: PEPCID 20 MG IV PREMIX* 20 MG/50 ML BAG IV SCH (08:49)
[2020-07-21] MEDS: VANCOMYCIN HCL 250 MG CAP PO SCH ×5 (08:50→21:57)
[2020-07-21] MEDS: ROBITUSSIN DM PO SCH ×6 (08:50→21:58)
[2020-07-21] MEDS: VITAMIN D3 125 mcg (5,000 UNITS) PO SCH (08:50)
[2020-07-21] MEDS: LOVENOX INJ 40 MG SYR SC SCH ×2 (08:51→21:59)
[2020-07-21] MEDS: MAGIC MOUTHWASH MT SCH ×5 (08:53→21:59)
[2020-07-21] MEDS: PROTONIX INJ 40 MG VIAL IVP SCH ×2 (08:54→21:59)
--- NOTE | 2020-07-21 11:10 | DR.PROGNOT ---
Hospital Progress Notes - Progress Note for Day of: Progress Note Date: 07/21/20 - Chief Complaint Chief Complaint: still having abdominal distention and liquid BM , no bleeding . last abdominal Xray is showing distended colon . WBC 24.4.. Hgb 11.9 . BUN/Creat normal . rrepeat lactate is normal . - Past Medical Family Social History Past Med/Fam/Surg Hx: No changes since H&P Allergies: Allergies No Known Drug Allergies Allergy (Verified 03/12/19 18:07) - Review Of Systems ROS: No change since H&P - Vital Signs Vital Signs: Temperature 97.6 F Pulse Rate [Right Brachial] 130 Pulse Rate [Left] 102 Pulse Rate 94 Respiratory Rate 18 Blood Pressure [Right Calf] 132/63 Blood Pressure [Right Arm] 174/97 Blood Pressure 114/57 O2 Sat by Pulse Oximetry 93 - Physical Exam Oriented: Not Oriented Eyes: Normal Ear: Normal Nose: Normal Throat: Normal Respiratory: Generalized, Diminished Cardiovascular: Normal : Normal GI:Auscultation: Increased, Decreased GI:Palpation: Normal GI: Tenderness: Diffuse (tympanic abdomen with moderate distention .), Mild, Rigidity, Other (distended) Skin: Decreased Turgur Musculoskeletal: Normal Psychiatric: Normal Mood Description: Calm Affect: Normal Speech Pattern: Clear, Appropriate - Laboratory and Diagnostics Result Diagrams: 07/21/20 05:00 07/21/20 05:00 Labs: 07/16/20 06:48 Blood Blood Culture - Final 07/16/20 06:40 Blood Blood Culture - Final 07/16/20 10:58 Stool Stool Culture - Final 07/16/20 10:58 Stool - Final 07/16/20 08:46 Urine,Catheterized Urine Culture - Final Laboratory WBC 24.4 X10^3/uL (3.6-10.0) H 07/21/20 05:00 RBC 3.74 X10^6/uL (3.5-5.4) 07/21/20 05:00 Hgb 11.6 g/dL (12.0-16.0) L 07/21/20 05:00 Hct 34.6 % (36.0-47.0) L 07/21/20 05:00 MCV 92.6 fL (80.0-100.0) 07/21/20 05:00 MCH 31.0 pg (27.0-34.0) 07/21/20 05:00 MCHC 33.4 g/dL (33.0-35.0) 07/21/20 05:00 RDW 15.1 % (11.6-16.5) 07/21/20 05:00 Plt Count 349 X10^3/uL (150.0-450.0) 07/21/20 05:00 Plt Count Comment Adequate (ADEQUATE) 07/21/20 05:00 MPV 8.4 fL (7.4-11.0) 07/21/20 05:00 Neut % (Auto) 91.9 % (42.0-75.0) H 07/21/20 05:00 Lymph % (Auto) 2.4 % (21.0-51.0) L 07/21/20 05:00 [place] % (Auto) 3.7 % (0.0-13.0) 07/21/20 05:00 Eos % (Auto) 1.9 % (0.9-2.9) 07/21/20 05:00 Baso % (Auto) 0.1 % (0.2-1.0) L 07/21/20 05:00 Neut # (Auto) 22.5 x10^3/uL (2.2-4.8) H 07/21/20 05:00 Lymph # (Auto) 0.6 X10^3/uL (1.3-2.9) L 07/21/20 05:00 [place] # (Auto) 0.9 x10^3/uL (0.3-0.8) H 07/21/20 05:00 Eos # (Auto) 0.5 x10^3/uL (0.0-0.2) H 07/21/20 05:00 Baso # (Auto) 0.0 X10^3/uL (0.0-0.1) 07/21/20 05:00 Absolute Nucleated RBC 0.0 /100WBC 07/21/20 05:00 Total Counted 100 07/21/20 05:00 Neutrophils % (Manual) 86 % (39-76) H 07/21/20 05:00 Band Neutrophils % 92 % (0-10) H 07/20/20 05:30 Lymphocytes % (Manual) 9 % (13-43) L 07/21/20 05:00 Monocytes % (Manual) 5 % (4-9) 07/21/20 05:00 Plt Morphology Comment Normal (NORMAL) 07/21/20 05:00 RBC Morphology Normal (NORMAL) 07/21/20 05:00 Crenated Cell 1+ A 07/18/20 04:38 D-Dimer 4.50 ug/ml (0.0-0.57) H* 07/20/20 05:30 Sample Site R rad 07/18/20 05:50 ABG pH 7.410 (7.35-7.45) 07/18/20 05:50 ABG pCO2 21.0 mmHg (35.0-45.0) L 07/18/20 05:50 ABG pO2 96.0 mmHg (80.0-100.0) 07/18/20 05:50 ABG HCO3 13.3 mmol/L (22-26) L* 07/18/20 05:50 ABG O2 Saturation 98.0 % (90-100) 07/18/20 05:50 ABG Base Excess -9.3 mmol/L (-2.0-2.0) L 07/18/20 05:50 Chris Test Poss 07/18/20 05:50 A-a Gradient 27.0 mmHg 07/18/20 05:50 FiO2 21.0 07/18/20 05:50 Blood Gas Comments Annie well 07/18/20 05:50 Sodium 131 mmol/L (136-145) L 07/21/20 05:00 Corrected Sodium 132 mmol/L (136-145) L 07/21/20 05:00 Potassium 4.2 mmol/L (3.5-5.1) 07/21/20 05:00 Chloride 104 mmol/L (98-107) 07/21/20 05:00 Carbon Dioxide 16.6 mmol/L (21-32) L 07/21/20 05:00 BUN 22 mg/dL (7-18) H 07/21/20 05:00 Creatinine 0.69 mg/dL (0.55-1.02) 07/21/20 05:00 Est GFR (MDRD) Af Amer > 60 (>60) 07/21/20 05:00 Est GFR (MDRD) Non-Af > 60 (>60) 07/21/20 05:00 Glucose 159 mg/dL (65-99) H 07/21/20 05:00 Lactic Acid 1.4 mmol/L (0.4-2.0) 07/20/20 05:30 Calcium 7.6 mg/dL (8.5-10.1) L 07/21/20 05:00 Corrected Calcium 8.5 mg/dL (8.5-10.1) 07/21/20 05:00 Magnesium 2.2 mg/dL (1.7-2.9) 07/20/20 05:30 Ferritin 1361 ng/mL (8-252) H 07/20/20 05:30 Total Bilirubin 0.50 mg/dL (0.2-1.0) 07/21/20 05:00 AST 20 Units/L (15-37) 07/21/20 05:00 ALT 14 Units/L (12-78) 07/21/20 05:00 Alkaline Phosphatase 45 Units/L (46-116) L 07/21/20 05:00 Creatine Kinase 57 Units/L (26-192) 07/16/20 06:48 CK-MB (CK-2) < 1.0 ng/mL (0-4.0) 07/16/20 06:48 CK/CKMB % Calc 1.8 % (<4) 07/16/20 06:48 Troponin I < 0.02 ng/mL (0-1.5) 07/16/20 06:48 C-Reactive Protein 9.80 mg/L (0-3.0) H 07/21/20 05:00 B-Natriuretic Peptide 144 pg/mL (0-79) H 07/16/20 09:07 Total Protein 4.7 g/dL (6.4-8.2) L 07/21/20 05:00 Albumin 2.9 g/dL (3.4-5.0) L 07/21/20 05:00 Globulin 1.8 g/dL (2.5-4.5) L 07/21/20 05:00 Albumin/Globulin Ratio 1.6 Ratio (1.1-2.1) 07/21/20 05:00 Amylase 50 Units/L (25-115) 07/16/20 06:48 Amylase Cancelled 07/16/20 06:48 Lipase 108 Units/L (73-393) 07/16/20 06:48 Lipase Cancelled 07/16/20 06:48 Specimen Type Catherized urine 07/16/20 08:46 Urine Color Yellow (YELLOW) 07/16/20 08:46 Urine Appearance Clear (CLEAR) 07/16/20 08:46 Urine pH 6.0 (5.0 - 8.0) 07/16/20 08:46 Ur Specific [place] 1.015 (1.000-1.030) 07/16/20 08:46 Urine Protein 2+ (NEGATIVE) 07/16/20 08:46 Urine Glucose (UA) Negative (NEGATIVE) 07/16/20 08:46 Urine Ketones Negative (NEGATIVE) 07/16/20 08:46 Urine Occult Blood Negative (NEGATIVE) 07/16/20 08:46 Urine Nitrite Negative (NEGATIVE) 07/16/20 08:46 Urine Bilirubin Negative (NEGATIVE) 07/16/20 08:46 Urine Urobilinogen Normal (NORMAL) 07/16/20 08:46 Ur Leukocyte Esterase 1+ (NEGATIVE) 07/16/20 08:46 Urine RBC 0-2 /HPF (0-3) 07/16/20 08:46 Urine WBC 0-2 /HPF (0-5) 07/16/20 08:46 Ur Squamous Epith Cells Rare /HPF (NEGATIVE) 07/16/20 08:46 Amorphous Sediment Trace /HPF (NEGATIVE) 07/16/20 08:46 Urine Bacteria Trace /HPF (NEGATIVE) 07/16/20 08:46 Ur Culture Indicated? Yes/culture set up 07/16/20 08:46 Stool Description 15g unformed brown 07/16/20 10:58 Stool Description 15g unformed brown 07/16/20 10:58 Stl Occult Blood (IFOB) Positive (NEGATIVE) A 07/16/20 10:58 Stool for White Cells Positive (NEGATIVE) A 07/16/20 10:58 Stl C. diff Tox B Gene Positive (NEGATIVE) A 07/16/20 10:58 Stl C. diff 027-NAP1-BI Positive (NEGATIVE) A 07/16/20 10:58 Stool H. pylori Ag Negative (NEGATIVE) 07/16/20 10:58 C. difficile Toxin A&B Positive (NEGATIVE) A 07/16/20 10:58 Cryptosporid parvum Ag Negative (NEGATIVE) 07/16/20 10:58 Giardia lamblia Ag Negative (NEGATIVE) 07/16/20 10:58 SARS CoV-2 RNA Rapid JULIET Positive (NEGATIVE) A 07/16/20 06:02 - Assessment and Plan 1: Covid19 pneumonia . C Diff colitis with distention .. no necrosis or ischemia so far . only clear liquis , Flagyl IV and Oral Vancomycin . start TPN . - Problem Patient Problems: Patient Problems Diarrhea (Acute) R19.7 Acute dehydration (Acute) E86.0 COVID-19 virus infection (Acute) U07.1 Bronchopneumonia (Acute) J18.0 C. difficile diarrhea (Acute) A04.72 Generalized weakness (Acute) R53.1
[2020-07-21] MEDS: DIFLUCAN PO SCH (11:36)
[2020-07-21 11:57] LABS: BAND NEUTROPHILS % 2 % (0-10)
--- NOTE | 2020-07-21 12:04 | PCM.PROG ---
Progress Note Progress Note for Day of Date of Exam: 07/21/20 Subjective Subjective: Patient seen at bedside, no overnight events. Patient's daughter also present in the room to discuss care. Patient is being treated for bronchopneumonia due to COVID-19 and C. diff infection. Patient has been having worsening abdominal distension and pain. Patient was seen by Dr. Leyva, KUB remained stable. She was initially kept NPO and then started on clears. Patient has been able to drink some apple juice. She was also given an enema last night. She had small BM's overnight and one this AM. Daughter states patient was taking Colace at home and that worked better for her. Patient is currently on room air. Labs: WBC 24.4 Hgb 11.6 Na: 132 CO2 16 BUN/Cr: 22/0.69 CRP 9.8 FOBT + C diff + CXR: patchy pulmonary opacities KUB yesterday: There is similar gas distention of the colon. No free air is identified. Plan: KUB pending for today, follow Dr. Smith's recommendations for medical management of C diff colitis. Continue current diet of liquids. Continue IV Flagyl and oral Vancomycin. Continue Solumedrol and Remdesivir. Continue NS at 75cc/hr. Will add Colace. Continue pepcid and anti-emetics. Monitor AM labs and imaging. Time spent for clinical assessment, physical examination, reviewing labs/imaging, documentation and decision making over 45 mins. Past Medical Family Social History Past Med/Fam/Surg Hx: No changes since H&P Allergies: Allergies No Known Drug Allergies Allergy (Verified 03/12/19 18:07) Review of Systems ROS: No change since H&P Vital Signs and I&O's Vital Signs: Temperature 97.6 F Pulse Rate [Right Brachial] 130 Pulse Rate [Left] 102 Pulse Rate 94 Respiratory Rate 18 Blood Pressure [Right Calf] 132/63 Blood Pressure [Right Arm] 174/97 Blood Pressure 114/57 O2 Sat by Pulse Oximetry 93 Intake and Output: Intake & Output 07/18/20 07/19/20 07/20/20 07/21/20 23:59 23:59 23:59 23:59 Intake Total 2786 / 2786 2450 / 2450 1935 / 1935 348 / 348 Output Total 1000 / 1000 800 / 800 590 / 590 125 / 125 Balance 1786 / 1786 1650 / 1650 1345 / 1345 223 / 223 Physical Exam Oriented: Not Oriented Eyes: Normal Ear: Normal Nose: Normal Throat: Normal Respiratory: Generalized and Diminished Cardiovascular: Normal Auscultation: Bowel Sounds: Increased Tenderness: Diffuse (tympanic abdomen with moderate distention .), Mild and Rigidity Skin: Decreased Turgur Musculoskeletal: Normal Psychiatric: Normal Mood Description: Calm Affect: Normal Speech Pattern: Delayed Laboratory and Diagnostics Result Diagrams: 07/21/20 05:00 07/21/20 05:00 Labs: 07/16/20 06:48 Blood Blood Culture - Final 07/16/20 06:40 Blood Blood Culture - Final 07/16/20 10:58 Stool Stool Culture - Final 07/16/20 10:58 Stool - Final 07/16/20 08:46 Urine,Catheterized Urine Culture - Final Laboratory WBC 24.4 X10^3/uL (3.6-10.0) H 07/21/20 05:00 RBC 3.74 X10^6/uL (3.5-5.4) 07/21/20 05:00 Hgb 11.6 g/dL (12.0-16.0) L 07/21/20 05:00 Hct 34.6 % (36.0-47.0) L 07/21/20 05:00 MCV 92.6 fL (80.0-100.0) 07/21/20 05:00 MCH 31.0 pg (27.0-34.0) 07/21/20 05:00 MCHC 33.4 g/dL (33.0-35.0) 07/21/20 05:00 RDW 15.1 % (11.6-16.5) 07/21/20 05:00 Plt Count 349 X10^3/uL (150.0-450.0) 07/21/20 05:00 Plt Count Comment Adequate (ADEQUATE) 07/21/20 05:00 MPV 8.4 fL (7.4-11.0) 07/21/20 05:00 Neut % (Auto) 91.9 % (42.0-75.0) H 07/21/20 05:00 Lymph % (Auto) 2.4 % (21.0-51.0) L 07/21/20 05:00 [place] % (Auto) 3.7 % (0.0-13.0) 07/21/20 05:00 Eos % (Auto) 1.9 % (0.9-2.9) 07/21/20 05:00 Baso % (Auto) 0.1 % (0.2-1.0) L 07/21/20 05:00 Neut # (Auto) 22.5 x10^3/uL (2.2-4.8) H 07/21/20 05:00 Lymph # (Auto) 0.6 X10^3/uL (1.3-2.9) L 07/21/20 05:00 [place] # (Auto) 0.9 x10^3/uL (0.3-0.8) H 07/21/20 05:00 Eos # (Auto) 0.5 x10^3/uL (0.0-0.2) H 07/21/20 05:00 Baso # (Auto) 0.0 X10^3/uL (0.0-0.1) 07/21/20 05:00 Absolute Nucleated RBC 0.0 /100WBC 07/21/20 05:00 Total Counted 100 07/21/20 05:00 Neutrophils % (Manual) 86 % (39-76) H 07/21/20 05:00 Band Neutrophils % 92 % (0-10) H 07/20/20 05:30 Lymphocytes % (Manual) 9 % (13-43) L 07/21/20 05:00 Monocytes % (Manual) 5 % (4-9) 07/21/20 05:00 Plt Morphology Comment Normal (NORMAL) 07/21/20 05:00 RBC Morphology Normal (NORMAL) 07/21/20 05:00 Crenated Cell 1+ A 07/18/20 04:38 D-Dimer 4.50 ug/ml (0.0-0.57) H* 07/20/20 05:30 Sample Site R rad 07/18/20 05:50 ABG pH 7.410 (7.35-7.45) 07/18/20 05:50 ABG pCO2 21.0 mmHg (35.0-45.0) L 07/18/20 05:50 ABG pO2 96.0 mmHg (80.0-100.0) 07/18/20 05:50 ABG HCO3 13.3 mmol/L (22-26) L* 07/18/20 05:50 ABG O2 Saturation 98.0 % (90-100) 07/18/20 05:50 ABG Base Excess -9.3 mmol/L (-2.0-2.0) L 07/18/20 05:50 Chris Test Poss 07/18/20 05:50 A-a Gradient 27.0 mmHg 07/18/20 05:50 FiO2 21.0 07/18/20 05:50 Blood Gas Comments Annie well 07/18/20 05:50 Sodium 131 mmol/L (136-145) L 07/21/20 05:00 Corrected Sodium 132 mmol/L (136-145) L 07/21/20 05:00 Potassium 4.2 mmol/L (3.5-5.1) 07/21/20 05:00 Chloride 104 mmol/L (98-107) 07/21/20 05:00 Carbon Dioxide 16.6 mmol/L (21-32) L 07/21/20 05:00 BUN 22 mg/dL (7-18) H 07/21/20 05:00 Creatinine 0.69 mg/dL (0.55-1.02) 07/21/20 05:00 Est GFR (MDRD) Af Amer > 60 (>60) 07/21/20 05:00 Est GFR (MDRD) Non-Af > 60 (>60) 07/21/20 05:00 Glucose 159 mg/dL (65-99) H 07/21/20 05:00 Lactic Acid 1.4 mmol/L (0.4-2.0) 07/20/20 05:30 Calcium 7.6 mg/dL (8.5-10.1) L 07/21/20 05:00 Corrected Calcium 8.5 mg/dL (8.5-10.1) 07/21/20 05:00 Magnesium 2.2 mg/dL (1.7-2.9) 07/20/20 05:30 Ferritin 1361 ng/mL (8-252) H 07/20/20 05:30 Total Bilirubin 0.50 mg/dL (0.2-1.0) 07/21/20 05:00 AST 20 Units/L (15-37) 07/21/20 05:00 ALT 14 Units/L (12-78) 07/21/20 05:00 Alkaline Phosphatase 45 Units/L (46-116) L 07/21/20 05:00 Creatine Kinase 57 Units/L (26-192) 07/16/20 06:48 CK-MB (CK-2) < 1.0 ng/mL (0-4.0) 07/16/20 06:48 CK/CKMB % Calc 1.8 % (<4) 07/16/20 06:48 Troponin I < 0.02 ng/mL (0-1.5) 07/16/20 06:48 C-Reactive Protein 9.80 mg/L (0-3.0) H 07/21/20 05:00 B-Natriuretic Peptide 144 pg/mL (0-79) H 07/16/20 09:07 Total Protein 4.7 g/dL (6.4-8.2) L 07/21/20 05:00 Albumin 2.9 g/dL (3.4-5.0) L 07/21/20 05:00 Globulin 1.8 g/dL (2.5-4.5) L 07/21/20 05:00 Albumin/Globulin Ratio 1.6 Ratio (1.1-2.1) 07/21/20 05:00 Amylase 50 Units/L (25-115) 07/16/20 06:48 Amylase Cancelled 07/16/20 06:48 Lipase 108 Units/L (73-393) 07/16/20 06:48 Lipase Cancelled 07/16/20 06:48 Specimen Type Catherized urine 07/16/20 08:46 Urine Color Yellow (YELLOW) 07/16/20 08:46 Urine Appearance Clear (CLEAR) 07/16/20 08:46 Urine pH 6.0 (5.0 - 8.0) 07/16/20 08:46 Ur Specific [place] 1.015 (1.000-1.030) 07/16/20 08:46 Urine Protein 2+ (NEGATIVE) 07/16/20 08:46 Urine Glucose (UA) Negative (NEGATIVE) 07/16/20 08:46 Urine Ketones Negative (NEGATIVE) 07/16/20 08:46 Urine Occult Blood Negative (NEGATIVE) 07/16/20 08:46 Urine Nitrite Negative (NEGATIVE) 07/16/20 08:46 Urine Bilirubin Negative (NEGATIVE) 07/16/20 08:46 Urine Urobilinogen Normal (NORMAL) 07/16/20 08:46 Ur Leukocyte Esterase 1+ (NEGATIVE) 07/16/20 08:46 Urine RBC 0-2 /HPF (0-3) 07/16/20 08:46 Urine WBC 0-2 /HPF (0-5) 07/16/20 08:46 Ur Squamous Epith Cells Rare /HPF (NEGATIVE) 07/16/20 08:46 Amorphous Sediment Trace /HPF (NEGATIVE) 07/16/20 08:46 Urine Bacteria Trace /HPF (NEGATIVE) 07/16/20 08:46 Ur Culture Indicated? Yes/culture set up 07/16/20 08:46 Stool Description 15g unformed brown 07/16/20 10:58 Stool Description 15g unformed brown 07/16/20 10:58 Stl Occult Blood (IFOB) Positive (NEGATIVE) A 07/16/20 10:58 Stool for White Cells Positive (NEGATIVE) A 07/16/20 10:58 Stl C. diff Tox B Gene Positive (NEGATIVE) A 07/16/20 10:58 Stl C. diff 027-NAP1-BI Positive (NEGATIVE) A 07/16/20 10:58 Stool H. pylori Ag Negative (NEGATIVE) 07/16/20 10:58 C. difficile Toxin A&B Positive (NEGATIVE) A 07/16/20 10:58 Cryptosporid parvum Ag Negative (NEGATIVE) 07/16/20 10:58 Giardia lamblia Ag Negative (NEGATIVE) 07/16/20 10:58 SARS CoV-2 RNA Rapid JULIET Positive (NEGATIVE) A 07/16/20 06:02 Plan (1) Bronchopneumonia: Status: Acute Plan: 1/2NS AT 150 ML/HR, ALBUMIN 25% IV DAILY, LOVENOX 40MG SC BID, METOPROLOL 12.5MG PO BID, FLAGYL 500MG IV Q6H, VANCOMYCIN 250MG PO QID, LOMOTIL 1 TAB PO TID PRN, REMDESIVIR 100MG IV DAILY, IVERMECTIN, DUONEBS QID, ASCORBIC ACID 1500MG IV Q6HR, TESSALON PERLES 200MG PO TID, TUSSIONEX SUSP 5ML PO Q12H PRN, PEPCID 20MG IV BID, ROBITUSSIN DM 10 ML PO QID, VSL 2 CAPS PO DAILY, MELATONIN 10MG PO HS, SOLU-MEDROL 125MG IV Q8H, ZOFRAN 4MG IV Q6H PRN, PROTONIX 40MG IV BID, PHENERGAN 12.5MG IM Q6H PRN, AND ZINC SULFATE 220MG PO DAILY. (2) COVID-19 virus infection: Status: Acute (3) C. difficile diarrhea: Status: Acute (4) Acute dehydration: Status: Acute (5) Generalized weakness: Status: Acute (6) Abdominal distension: Status: Acute
--- NOTE | 2020-07-21 12:36 | RAD ---
HISTORYSMALL BOWEL OBSTRUCTION, Abd distention/painSTUDYKUBCOMPARISONJanuary 2020 at 1:04 p.m.TECHNIQUEAP projection, supine, 2 imagesFINDINGSDiffuse gaseous distention of the colon with the maximum dimension of the colon in the cecal region measuring 10.74 cm; similar to the previous exam.No gross free air or pneumatosis identified.Jewell catheter in place.S shaped curvature of the thoracolumbar spine.IMPRESSIONNo significant changes when compared to the previous exam.Electronically signed by: Vinod Shields (Jul 21, 2020 12:34:35)
[2020-07-21] MEDS: COLACE CAP 100 MG PO SCH (14:09)
[2020-07-21] MEDS: BUTT CREAM (COMPOUND) TOP PRN ×2 (16:54→22:27)
[2020-07-21] MEDS: MELATONIN PO SCH (21:59)
[2020-07-22] MEDS: ASCORBIC ACID INJ MULTI-DOSE VIAL 1,500 MG in NS 50 ML IV 50 ML IV SCH ×4 (02:25→21:28)
[2020-07-22] MEDS: SOLU-Medrol 125 MG VIAL IVP SCH ×2 (02:26→08:36)
[2020-07-22] MEDS: FLAGYL IV PREMIX 500 MG BAG 500 MG/100 ML BAG IV SCH ×4 (04:00→21:52)
[2020-07-22] MEDS: TESSALON PERLES PO SCH ×3 (05:19→21:28)
--- NOTE | 2020-07-22 05:24 | RAD ---
PROCEDURE: Chest X-ray 1 View .HISTORY: Short of breath.TECHNIQUE: AP view .COMPARISON: 07/21/2020.TECHNICAL QUALITY: Satisfactory .FINDINGS:Unchanged cardiomediastinal silhouette.Normal central vascularity.Increase consolidation right base since previous study and unchanged on the left. No pleural fluid or pneumothorax.IMPRESSION:Mildly increased pneumonia on the right and unchanged on the left.Electronically signed by: Logan Dougherty (Jul 22, 2020 05:22:39)
[2020-07-22 06:17] LABS: BASOPHILS % (AUTO) 0.1 % (0.2-1.0); HEMATOCRIT 34.2 % (36.0-47.0); HEMOGLOBIN 11.3 g/dL (12.0-16.0); LYMPHOCYTES # (AUTO) 0.6 X10^3/uL (1.3-2.9); LYMPHOCYTES % (AUTO) 2.4 % (21.0-51.0); MEAN CORPUSCULAR HEMOGLOBIN 30.6 pg (27.0-34.0); MEAN CORPUSCULAR HGB CONC 32.9 g/dL (33.0-35.0); MEAN CORPUSCULAR VOLUME 92.9 fL (80.0-100.0); MEAN PLATELET VOLUME 8.6 fL (7.4-11.0); MONOCYTES # (AUTO) 0.8 x10^3/uL (0.3-0.8); NEUTROPHILS # (AUTO) 24.5 x10^3/uL (2.2-4.8); NEUTROPHILS % (AUTO) 94.5 % (42.0-75.0); PLATELET COUNT 272 X10^3/uL (150.0-450.0); RED BLOOD COUNT 3.68 X10^6/uL (3.5-5.4); RED CELL DISTRIBUTION WIDTH 15.2 % (11.6-16.5); WHITE BLOOD COUNT 25.9 X10^3/uL (3.6-10.0)
[2020-07-22 06:22] LABS: ALANINE AMINOTRANSFERASE 16 Units/L (12-78); ALBUMIN 3.1 g/dL (3.4-5.0); ALKALINE PHOSPHATASE 47 Units/L (46-116); ASPARTATE AMINO TRANSFERASE 31 Units/L (15-37); BLOOD UREA NITROGEN 24 mg/dL (7-18); CALCIUM 7.9 mg/dL (8.5-10.1); CARBON DIOXIDE 17.3 mmol/L (21-32); CHLORIDE 106 mmol/L (98-107); COR CA(FOR HYPOALB) 8.6 mg/dL (8.5-10.1); COR NA(FOR HYPERGLY) 137 mmol/L (136-145); CREATININE 0.65 mg/dL (0.55-1.02); SODIUM 136 mmol/L (136-145); TOTAL PROTEIN 4.8 g/dL (6.4-8.2); eGFR NON BLACK RACES > 60 (>60)
[2020-07-22 06:56] LABS: BAND NEUTROPHILS % 11 % (0-10); PLATELET MORPHOLOGY COMMENT NORMAL (NORMAL)
[2020-07-22] MEDS: ALBUMIN HUMAN 25%- 100 ML 100 ML IV SCH (08:19)
[2020-07-22] MEDS: LOVENOX INJ 40 MG SYR SC SCH ×2 (08:35→21:27)
[2020-07-22] MEDS: PROTONIX INJ 40 MG VIAL IVP SCH ×2 (08:36→21:27)
[2020-07-22] MEDS: ACCUNEB 1.25 MG NEBULE NEB SCH ×4 (08:55→21:10)
[2020-07-22] MEDS: PEPCID 20 MG IV PREMIX* 20 MG/50 ML BAG IV SCH (09:12)
[2020-07-22] MEDS: NS 1000 ML 1,000 ML IV SCH (09:12)
[2020-07-22] MEDS: ROBITUSSIN DM PO SCH ×5 (09:39→21:27)
[2020-07-22] MEDS: MAGIC MOUTHWASH MT SCH ×5 (09:40→21:35)
[2020-07-22] MEDS: VANCOMYCIN HCL 250 MG CAP PO SCH ×4 (09:40→21:32)
[2020-07-22] MEDS: DIFLUCAN PO SCH ×3 (09:42→16:30)
[2020-07-22] MEDS: LOPRESSOR TAB 25 MG PO SCH (09:42)
[2020-07-22] MEDS: COLACE CAP 100 MG PO SCH ×3 (09:42→16:30)
[2020-07-22] MEDS: VITAMIN D3 125 mcg (5,000 UNITS) PO SCH (10:46)
[2020-07-22] MEDS: VSL#3 PO SCH (10:46)
[2020-07-22] MEDS: ZINC SULFATE PO SCH (10:47)
[2020-07-22] MEDS ORDERED: PHARMACY CONSULT - TPN XX SCH (11:00)
--- NOTE | 2020-07-22 12:35 | RAD ---
HISTORYPICC LINE PLACEMENTSTUDYCHEST, 1 [id number]/2021.TECHNIQUEAP view of the chestFINDINGSLeft upper extremity PICC line with tip in good position. Cardiac and mediastinal contours are within normal limits. No significant change in bilateral airspace and interstitial opacities. Blunted costophrenic sulci. No pneumothorax.IMPRESSIONLeft upper extremity PICC line in good position. Otherwise no significant change.Electronically signed by: Joshua Grande (Jul 22, 2020 12:34:15)
[2020-07-22 12:51] LABS: ABG BASE EXCESS -2.2 mmol/L (-2.0-2.0); ABG HCO3 20.6 mmol/L (22-26)
--- NOTE | 2020-07-22 13:20 | DR.UPDATE ---
H&P Update History and Physical Update: History and Physical reviewed and patient examined. Changes noted: NO Yes with the following:will place picc H&P Reviewed: Yes Patient was examined?: Yes Procedures (ALL) - Central Line Placement PCM.CLCO: written consent Time out performed: Yes Patient placed pm monitor/pulse ox: Yes prep: mask, gown, gloves, other Centrial line prep: chlorhexidine scrub, sterile drapes applied Local anesthsia used: lidocane 1% Ultrasound used for placement: Yes (left basilic id'd via u/s. ) Central line lumen ininserted: double (5.5fr arrow picc to 38cm. 12cm exposed) Post procedure: sutured in place, good blood return, all ports aspirated, flushed,capped, sterile dressing applied Post procedure xray: tip oc catheter in good position, no pneumothorax seen Patient tolerated procedure: Yes Complications: none
[2020-07-22] MEDS: MYLICON TAB 80 MG CHEW PO SCH ×6 (13:32→21:42)
[2020-07-22] MEDS: SOLU-Medrol 40 MG VIAL IVP SCH ×2 (13:33→21:27)
[2020-07-22] MEDS: PROCALAMINE 3 % 1,000 ML IV SCH (13:39)
[2020-07-22] MEDS ORDERED: LOPRESSOR TAB 25 MG PO ONE (13:43)
[2020-07-22] MEDS ORDERED: LOPRESSOR INJ 5 MG AMP IVP PRN (14:19)
[2020-07-22] MEDS ORDERED: LOPRESSOR TAB 25 MG PO SCH (21:00)
--- NOTE | 2020-07-22 21:18 | PCM.PROG ---
Progress Note - Progress Note for Day of Date of Exam: 07/22/20 - Subjective Subjective: IS BEING TREATED FOR BRONCHOPNEUMONIA DUE TO COVID-19, C DIFF DIARRHEA, ACUTE DEHYDRATION, AND GENERALIZED WEAKNESS. TODAY, SHE IS ALERT AND ORIENTED, LYING IN BED ON MORNING ROUNDS. SHE CONTINUES WITH COMPLAINTS OF WEAKNESS AND DECREASED APPETITE. DIARRHEA HAS SLOWED DOWN. SHE IS CURRENTLY ON ROOM AIR. HER SATURATIONS HAVE BEEN 92-98%. STAFF REPORTS THAT SHE HAS BEEN TACHYCARDIC THROUGHOUT THE NIGHT WITH HR 110-130s BPM. ON EXAMINATION, HEART IS REGULAR IN RATE AND RHYTYHM. BILATERAL LUNGS ARE NOTED WITH DIMINISHED LUNG SOUNDS THROUGHOUT. ABDOMEN IS ROUND, SOFT, AND NOTED WITH DIFFUSE TENDERNESS. HYPERACTIVE BOWEL SOUNDS ARE NOTED IN ALL QUADRANTS. HER VITALS THIS MORNING ARE: 98.1-130-18-93%-174/97. LABS WERE OBTAINED. ABNORMAL LAB VALUES INCLUDE THE FOLLOWING: WBC 25.9, HGB 11.3, HCT 34.2, D-DIMER 2.24, CARBON DIOXIDE 17.3, BUN 24, GLUCOSE 151, CALCIUM 7.9, CRP 6.40, BNP 141, TOTAL PROTEIN 4.8, ALBUMIN 3.1, GLOBULIN 1.7. STOOL, URINE, AND BLOOD CULTURES ARE ALL NEGATIVE. A CHEST XRAY WAS OBTAINED TODAY AND REVEALED: Left upper extremity PICC line in good position . Otherwise no significant change. ECHO REVEALED AN EJECTION FRACTION OF 58%, MILD PULMONARY HYPERTENSION. SHE IS CURRENTLY RECEIVING NS AT 25 ML/HR, FLAGYL 500MG IV Q6H, VANCOMYCIN 250MG PO QID, LOMOTIL 1 TAB TID PRN, ALBUEROL NEBS QID, ASCORBIC ACID 1500MG IV Q6HR, TESSALON PERLES 200MG PO TID, TUSSIONEX SUSP 5ML PO Q12H PRN, PEPCID 20MG IV BID, ROBITUSSIN DM 10 ML PO QID, VSL 2 CAPS PO DAILY, MELATONIN 10MG PO HS, SOLU-MEDROL 125MG IV Q6H, ZOFRAN 4MG IV Q6H PRN, LOVENOX 40MG SC BID, ALBUMIN 25% IV DAILY, METOPROLOL 12.5MG PO BID, PROTONIX 40MG IV BID, PHENERGAN 12.5MG IM Q6H PRN, MAGIC MOUTHWASH QID, DIFLUCAN 100MG PO DAILY, PHENOBARBITAL 65MG IV Q8H PRN, AND ZINC SULFATE 220MG PO DAILY. TODAY, WE WILL ADD PROCAL AT 40 ML/HR, MYLICON 40MG PO TID, AND DECREASE THE SOLU-MEDROL TO 20MG IV Q8H. OTHERWISE, WE WILL CONTINUE WITH CURRENT PLAN OF CARE TODAY. WE PLAN TO FOLLOW UP WITH AM LABS, CHEST XRAY, AND CONTINUE TO MONITOR. TIME SPENT ON CLINICAL ASSESSMENT, PHYSICAL EXAMINATION, REVIEWING LABS/IMAGING, AND DECISION MAKING GREATER THAN 75 MINUTES. - Past Medical Family Social History Past Med/Fam/Surg Hx: No changes since H&P Allergies: Allergies No Known Drug Allergies Allergy (Verified 03/12/19 18:07) - Review of Systems ROS: No change since H&P - Vital Signs and I&O's Vital Signs: Temperature 97.7 F Pulse Rate [Right Brachial] 83 Pulse Rate [Left] 90 Pulse Rate 105 Respiratory Rate 24 Blood Pressure [Right Calf] 132/63 Blood Pressure [Right Arm] 178/89 Blood Pressure 114/57 O2 Sat by Pulse Oximetry 97 Intake and Output: Intake & Output 07/20/20 07/21/20 07/22/20 07/23/20 11:59 11:59 11:59 11:59 Intake Total 1875 / 1875 2142 / 2142 1689 / 1689 430 / 430 Output Total 650 / 650 565 / 565 400 / 400 200 / 200 Balance 1225 / 1225 1577 / 1577 1289 / 1289 230 / 230 - Physical Exam Oriented: Not Oriented Eyes: Normal Ear: Normal Nose: Normal Throat: Normal Respiratory: Generalized, Diminished Cardiovascular: Normal : Normal Auscultation: Bowel Sounds: Increased Tenderness: Diffuse (tympanic abdomen with moderate distention .), Rigidity, Mild Skin: Decreased Turgur Musculoskeletal: Normal Psychiatric: Normal Mood Description: Calm Affect: Normal Speech Pattern: Clear, Appropriate - Laboratory and Diagnostics Result Diagrams: 07/22/20 05:10 07/22/20 05:10 Labs: 07/16/20 06:48 Blood Blood Culture - Final 07/16/20 06:40 Blood Blood Culture - Final 07/16/20 10:58 Stool Stool Culture - Final 07/16/20 10:58 Stool - Final 07/16/20 08:46 Urine,Catheterized Urine Culture - Final Laboratory WBC 25.9 X10^3/uL (3.6-10.0) H 07/22/20 05:10 RBC 3.68 X10^6/uL (3.5-5.4) 07/22/20 05:10 Hgb 11.3 g/dL (12.0-16.0) L 07/22/20 05:10 Hct 34.2 % (36.0-47.0) L 07/22/20 05:10 MCV 92.9 fL (80.0-100.0) 07/22/20 05:10 MCH 30.6 pg (27.0-34.0) 07/22/20 05:10 MCHC 32.9 g/dL (33.0-35.0) L 07/22/20 05:10 RDW 15.2 % (11.6-16.5) 07/22/20 05:10 Plt Count 272 X10^3/uL (150.0-450.0) 07/22/20 05:10 Plt Count Comment Adequate (ADEQUATE) 07/22/20 05:10 MPV 8.6 fL (7.4-11.0) 07/22/20 05:10 Neut % (Auto) 94.5 % (42.0-75.0) H 07/22/20 05:10 Lymph % (Auto) 2.4 % (21.0-51.0) L 07/22/20 05:10 [place] % (Auto) 3.0 % (0.0-13.0) 07/22/20 05:10 Eos % (Auto) 0.0 % (0.9-2.9) L 07/22/20 05:10 Baso % (Auto) 0.1 % (0.2-1.0) L 07/22/20 05:10 Neut # (Auto) 24.5 x10^3/uL (2.2-4.8) H 07/22/20 05:10 Lymph # (Auto) 0.6 X10^3/uL (1.3-2.9) L 07/22/20 05:10 [place] # (Auto) 0.8 x10^3/uL (0.3-0.8) 07/22/20 05:10 Eos # (Auto) 0.0 x10^3/uL (0.0-0.2) 07/22/20 05:10 Baso # (Auto) 0.0 X10^3/uL (0.0-0.1) 07/22/20 05:10 Absolute Nucleated RBC 0.2 /100WBC 07/22/20 05:10 Total Counted 100 07/22/20 05:10 Neutrophils % (Manual) 76 % (39-76) 07/22/20 05:10 Band Neutrophils % 11 % (0-10) H 07/22/20 05:10 Lymphocytes % (Manual) 10 % (13-43) L 07/22/20 05:10 Monocytes % (Manual) 3 % (4-9) L 07/22/20 05:10 Plt Morphology Comment Normal (NORMAL) 07/22/20 05:10 RBC Morphology Normal (NORMAL) 07/22/20 05:10 Crenated Cell 1+ A 07/18/20 04:38 D-Dimer 2.24 ug/ml (0.0-0.57) H* 07/22/20 06:00 Sample Site Rb 07/22/20 12:46 ABG pH 7.460 (7.35-7.45) H 07/22/20 12:46 ABG pCO2 29.0 mmHg (35.0-45.0) L 07/22/20 12:46 ABG pO2 73.0 mmHg (80.0-100.0) L 07/22/20 12:46 ABG HCO3 20.6 mmol/L (22-26) L 07/22/20 12:46 ABG O2 Saturation 95.0 % (90-100) 07/22/20 12:46 ABG Base Excess -2.2 mmol/L (-2.0-2.0) L 07/22/20 12:46 Chris Test Na 07/22/20 12:46 A-a Gradient 40.0 mmHg 07/22/20 12:46 FiO2 21.0 07/22/20 12:46 Blood Gas Comments [facility] well [facility] 07/22/20 12:46 Sodium 136 mmol/L (136-145) 07/22/20 05:10 Corrected Sodium 137 mmol/L (136-145) 07/22/20 05:10 Potassium 4.7 mmol/L (3.5-5.1) 07/22/20 05:10 Chloride 106 mmol/L (98-107) 07/22/20 05:10 Carbon Dioxide 17.3 mmol/L (21-32) L 07/22/20 05:10 BUN 24 mg/dL (7-18) H 07/22/20 05:10 Creatinine 0.65 mg/dL (0.55-1.02) 07/22/20 05:10 Est GFR (MDRD) Af Amer > 60 (>60) 07/22/20 05:10 Est GFR (MDRD) Non-Af > 60 (>60) 07/22/20 05:10 Glucose 151 mg/dL (65-99) H 07/22/20 05:10 Lactic Acid 1.4 mmol/L (0.4-2.0) 07/20/20 05:30 Calcium 7.9 mg/dL (8.5-10.1) L 07/22/20 05:10 Corrected Calcium 8.6 mg/dL (8.5-10.1) 07/22/20 05:10 Magnesium 2.2 mg/dL (1.7-2.9) 07/20/20 05:30 Ferritin 1361 ng/mL (8-252) H 07/20/20 05:30 Total Bilirubin 0.80 mg/dL (0.2-1.0) 07/22/20 05:10 AST 31 Units/L (15-37) 07/22/20 05:10 ALT 16 Units/L (12-78) 07/22/20 05:10 Alkaline Phosphatase 47 Units/L (46-116) 07/22/20 05:10 Creatine Kinase 57 Units/L (26-192) 07/16/20 06:48 CK-MB (CK-2) < 1.0 ng/mL (0-4.0) 07/16/20 06:48 CK/CKMB % Calc 1.8 % (<4) 07/16/20 06:48 Troponin I < 0.02 ng/mL (0-1.5) 07/16/20 06:48 C-Reactive Protein 6.40 mg/L (0-3.0) H 07/22/20 05:10 B-Natriuretic Peptide 141 pg/mL (0-79) H 07/22/20 05:10 Total Protein 4.8 g/dL (6.4-8.2) L 07/22/20 05:10 Albumin 3.1 g/dL (3.4-5.0) L 07/22/20 05:10 Globulin 1.7 g/dL (2.5-4.5) L 07/22/20 05:10 Albumin/Globulin Ratio 1.8 Ratio (1.1-2.1) 07/22/20 05:10 Prealbumin 21.8 mg/dL (18-35.7) 07/22/20 05:10 Amylase 50 Units/L (25-115) 07/16/20 06:48 Amylase Cancelled 07/16/20 06:48 Lipase 108 Units/L (73-393) 07/16/20 06:48 Lipase Cancelled 07/16/20 06:48 Specimen Type Catherized urine 07/16/20 08:46 Urine Color Yellow (YELLOW) 07/16/20 08:46 Urine Appearance Clear (CLEAR) 07/16/20 08:46 Urine pH 6.0 (5.0 - 8.0) 07/16/20 08:46 Ur Specific [place] 1.015 (1.000-1.030) 07/16/20 08:46 Urine Protein 2+ (NEGATIVE) 07/16/20 08:46 Urine Glucose (UA) Negative (NEGATIVE) 07/16/20 08:46 Urine Ketones Negative (NEGATIVE) 07/16/20 08:46 Urine Occult Blood Negative (NEGATIVE) 07/16/20 08:46 Urine Nitrite Negative (NEGATIVE) 07/16/20 08:46 Urine Bilirubin Negative (NEGATIVE) 07/16/20 08:46 Urine Urobilinogen Normal (NORMAL) 07/16/20 08:46 Ur Leukocyte Esterase 1+ (NEGATIVE) 07/16/20 08:46 Urine RBC 0-2 /HPF (0-3) 07/16/20 08:46 Urine WBC 0-2 /HPF (0-5) 07/16/20 08:46 Ur Squamous Epith Cells Rare /HPF (NEGATIVE) 07/16/20 08:46 Amorphous Sediment Trace /HPF (NEGATIVE) 07/16/20 08:46 Urine Bacteria Trace /HPF (NEGATIVE) 07/16/20 08:46 Ur Culture Indicated? Yes/culture set up 07/16/20 08:46 Stool Description 15g unformed brown 07/16/20 10:58 Stool Description 15g unformed brown 07/16/20 10:58 Stl Occult Blood (IFOB) Positive (NEGATIVE) A 07/16/20 10:58 Stool for White Cells Positive (NEGATIVE) A 07/16/20 10:58 Stl C. diff Tox B Gene Positive (NEGATIVE) A 07/16/20 10:58 Stl C. diff 027-NAP1-BI Positive (NEGATIVE) A 07/16/20 10:58 Stool H. pylori Ag Negative (NEGATIVE) 07/16/20 10:58 C. difficile Toxin A&B Positive (NEGATIVE) A 07/16/20 10:58 Cryptosporid parvum Ag Negative (NEGATIVE) 07/16/20 10:58 Giardia lamblia Ag Negative (NEGATIVE) 07/16/20 10:58 SARS CoV-2 RNA Rapid JULIET Positive (NEGATIVE) A 07/16/20 06:02 - Plan (1) Bronchopneumonia Status: Acute Plan: NS AT 25 ML/HR, PROCAL AT 50 ML/HR, FLAGYL 500MG IV Q6H, VANCOMYCIN 250MG PO QID, LOMOTIL 1 TAB TID PRN, ALBUEROL NEBS QID, ASCORBIC ACID 1500MG IV Q6HR, TESSALON PERLES 200MG PO TID, TUSSIONEX SUSP 5ML PO Q12H PRN, PEPCID 20MG IV BID, ROBITUSSIN DM 10 ML PO QID, VSL 2 CAPS PO DAILY, MELATONIN 10MG PO HS, SOLU-MEDROL 80MG IV Q8H, MYLICON 40MG PO TID, ZOFRAN 4MG IV Q6H PRN, LOVENOX 40MG SC BID, ALBUMIN 25% IV DAILY, METOPROLOL 12.5MG PO BID, PROTONIX 40MG IV BID, PHENERGAN 12.5MG IM Q6H PRN, MAGIC MOUTHWASH QID, DIFLUCAN 100MG PO DAILY, PHENOBARBITAL 65MG IV Q8H PRN, AND ZINC SULFATE 220MG PO DAILY (2) COVID-19 virus infection Status: Acute (3) C. difficile diarrhea Status: Acute (4) Acute dehydration Status: Acute (5) Generalized weakness Status: Acute
[2020-07-22] MEDS: MELATONIN PO SCH (21:31)
[2020-07-22] MEDS ORDERED: MYLICON TAB 80 MG CHEW PO ONE (21:38)
[2020-07-23] MEDS: ASCORBIC ACID INJ MULTI-DOSE VIAL 1,500 MG in NS 50 ML IV 50 ML IV SCH ×4 (02:52→21:45)
[2020-07-23] MEDS: FLAGYL IV PREMIX 500 MG BAG 500 MG/100 ML BAG IV SCH ×4 (03:57→21:47)
[2020-07-23] MEDS ORDERED: MYLICON TAB 80 MG CHEW PO ONE (04:41)
[2020-07-23] MEDS: MYLICON TAB 80 MG CHEW PO SCH ×3 (05:39→21:47)
[2020-07-23] MEDS: TESSALON PERLES PO SCH ×3 (05:39→21:46)
[2020-07-23] MEDS: SOLU-Medrol 40 MG VIAL IVP SCH ×3 (05:40→21:45)
--- NOTE | 2020-07-23 06:17 | RAD ---
HISTORYSOBSTUDYCHEST, 1 VIEWCOMPARISONOne day prior.TECHNIQUEAP view of the chestFINDINGUNM Hospital upper extremity PICC line in good position. Cardiac and mediastinal contours are within normal limits. Multifocal bilateral hazy airspace opacities and interstitial opacities appear similar. Blunted costophrenic sulci are present. No pneumothoraxIMPRESSIONNo significant change in pulmonary opacities.Electronically signed by: Joshua Grande (Jul 23, 2020 06:15:52)
--- NOTE | 2020-07-23 06:29 | RAD ---
HISTORYABDOMINAL PAINSTUDYKUBCOMPARISONKUB from 07/21/2020.TECHNIQUESupine KUBFINDINGSNo significant change in gas-filled mildly dilated loops of small and large bowel. No definite pneumatosis, free air or portal venous gas. No suspicious abdominal calcifications. Right lung bases not included in the field of view. Scoliosis.IMPRESSIONNo significant change in gas-filled dilated bowel may represent ileus or obstruction.Electronically signed by: Joshua Grande (Jul 23, 2020 06:27:44)
[2020-07-23] MEDS: NS 1000 ML 1,000 ML IV SCH ×2 (08:31→12:12)
[2020-07-23] MEDS: VANCOMYCIN HCL 250 MG CAP PO SCH ×4 (08:37→21:46)
[2020-07-23] MEDS: ROBITUSSIN DM PO SCH ×4 (08:37→21:48)
[2020-07-23] MEDS: DIFLUCAN PO SCH (08:37)
[2020-07-23] MEDS: COLACE CAP 100 MG PO SCH (08:37)
[2020-07-23] MEDS: ZINC SULFATE PO SCH (08:38)
[2020-07-23] MEDS: VITAMIN D3 125 mcg (5,000 UNITS) PO SCH (08:38)
[2020-07-23] MEDS: VSL#3 PO SCH (08:39)
[2020-07-23] MEDS: ALBUMIN HUMAN 25%- 100 ML 100 ML IV SCH (08:39)
[2020-07-23] MEDS: LOVENOX INJ 40 MG SYR SC SCH ×2 (08:40→21:47)
[2020-07-23] MEDS: MAGIC MOUTHWASH MT SCH ×4 (08:40→21:48)
[2020-07-23] MEDS: PROTONIX INJ 40 MG VIAL IVP SCH ×2 (08:42→21:48)
[2020-07-23] MEDS: PEPCID 20 MG IV PREMIX* 20 MG/50 ML BAG IV SCH (09:35)
[2020-07-23] MEDS: PROCALAMINE 3 % 1,000 ML IV SCH (09:39)
[2020-07-23] MEDS: ACCUNEB 1.25 MG NEBULE NEB SCH ×4 (09:59→21:00)
--- NOTE | 2020-07-23 13:48 | CT ---
HISTORYABDOMINAL PAIN AND DISTENSIONSTUDYABDOMEN/PELVIS WITH CONCOMPARISONSame day KUB. CT abdomen and pelvis from 07/16/2020.TECHNIQUEMultiple axial images of the abdomen and pelvis were obtained from the lung bases to the pubic symphysis after the administration of IV contrast. Dose reduction techniques including Automated Exposure Control (AEC) and adjustment of mA and kV were utilized.FINDINGSDevelopment moderate right and small left pleural effusion with scattered ground-glass opacities. The heart is mildly enlarged. Mitral valve calcifications are noted. The liver, spleen, and adrenal glands appear benign. Pancreas is atrophic. Status post cholecystectomy. Left renal cysts without identified calculus or hydronephrosis. The course of the ureters is difficult to follow given ascites. Jewell catheter in situ. Hysterectomy. Diarrheal state of the colon with wall thickening and surrounding inflammatory change about the colon and rectum. For example, the rectal wall measures 5 mm on image 77 series 4. Air-fluid levels are present in the transverse colon, descending colon and rectum. The sigmoid colon is mostly decompressed. The colon is mildly distended with the transverse colon measuring up to 7 cm image 48 series 4. Presumed appendix appears normal image 73 series 4. Negative for small bowel obstruction. Severely atherosclerotic normal caliber abdominal aorta. Moderate ascites. No free air or collection. Moderate body wall edema. Scoliosis. Moderate to severe lumbar spondylosis.IMPRESSIONMildly dilated colon with diarrheal state. Mild wall thickening of the colon and rectum suggests colitis and proctitis. Negative for small bowel obstruction.Volume overload with moderate right pleural effusion, small left pleural effusion, moderate ascites, and moderate body wall edema.Nonspecific ground-glass opacities in the lung bases.Electronically signed by: Joshua Grande (Jul 23, 2020 13:46:32)
--- NOTE | 2020-07-23 14:11 | PCM.PROG ---
Progress Note - Progress Note for Day of Date of Exam: 07/23/20 - Subjective Subjective: IS BEING TREATED FOR BRONCHOPNEUMONIA DUE TO COVID-19, C DIFF DIARRHEA, ACUTE DEHYDRATION, AND GENERALIZED WEAKNESS. TODAY, SHE IS ALERT AND ORIENTED, LYING IN BED ON MORNING ROUNDS. SHE CONTINUES WITH COMPLAINTS OF WEAKNESS, ABDOMINAL PAIN, AND ABDOMINAL DISTENTION. SHE IS CURRENTLY ON ROOM AIR. HER SATURATIONS HAVE BEEN 92-99% THIS MORNING AND THROUGHOUT THE NIGHT. STAFF REPORTS THAT SHE HAS BEEN TACHYCARDIC THROUGHOUT THE NIGHT WITH HR 100- 120s BPM. ON EXAMINATION, HEART IS REGULAR IN RATE AND RHYTYHM. BILATERAL LUNGS ARE NOTED WITH DIMINISHED LUNG SOUNDS THROUGHOUT. ABDOMEN IS ROUND, SOFT, AND NOTED WITH DIFFUSE TENDERNESS. HYPERACTIVE BOWEL SOUNDS ARE NOTED IN ALL QUAD RANTS. HER VITALS THIS MORNING ARE: 98.1-100-22-94%167/83. LABS WERE OBTAINED. ABNORMAL LAB VALUES INCLUDE THE FOLLOWING: WBC 25.9, HGB 11.3, HCT 34.2, D-DIMER 2.24, CARBON DIOXIDE 17.3, BUN 24, GLUCOSE 151, CALCIUM 7.9, CRP 6.40, BNP 141, TOTAL PROTEIN 4.8, ALBUMIN 3.1, GLOBULIN 1.7. STOOL, URINE, AND BLOOD CULTURES ARE ALL NEGATIVE. A CHEST XRAY WAS OBTAINED TODAY AND REVEALED: No significant change in pulmonary opacities. KUB OBTAINED AND REVEALED: No significant change in gas-filled dilated bowel may represent ileus or obstruction. SHE IS CURRENTLY RECEIVING NS AT 25 ML/HR, PROCAL AT 40 ML/HR, MYLICON 40MG PO TID, FLAGYL 500MG IV Q6H, VANCOMYCIN 250MG PO QID, LOMOTIL 1 TAB TID PRN, ALBUEROL NEBS QID, ASCORBIC ACID 1500MG IV Q6HR, TESSALON PERLES 200MG PO TID, TUSSIONEX SUSP 5ML PO Q12H PRN, PEPCID 20MG IV BID, ROBITUSSIN DM 10 ML PO QID, VSL 2 CAPS PO DAILY, MELATONIN 10MG PO HS, SOLU-MEDROL 20MG IV Q8H, ZOFRAN 4MG IV Q6H PRN, LOVENOX 40MG SC BID, ALBUMIN 25% IV DAILY, METOPROLOL 12.5MG PO BID, PROTONIX 40MG IV BID, PHENERGAN 12.5MG IM Q6H PRN, MAGIC MOUTHWASH QID, DIFLUCAN 100MG PO DAILY, PHENOBARBITAL 65MG IV Q8H PRN, AND ZINC SULFATE 220MG PO DAILY. WE WILL CONTINUE WITH CURRENT PLAN OF CARE TODAY AND OBTAIN AN ABDOMEN/PELVIS CT WITH CONTRAST. OTHERWISE, WE PLAN TO FOLLOW UP WITH AM LABS, CHEST XRAY, AND CONTINUE TO MONITOR. TIME SPENT ON CLINICAL ASSESSMENT, PHYSICAL EXAMINATION, REVIEWING LABS/IMAGING, AND DECISION MAKING GREATER THAN 75 MINUTES. - Past Medical Family Social History Past Med/Fam/Surg Hx: No changes since H&P Allergies: Allergies No Known Drug Allergies Allergy (Verified 03/12/19 18:07) - Review of Systems ROS: No change since H&P - Vital Signs and I&O's Vital Signs: Temperature 97.6 F Pulse Rate [Right Brachial] 83 Pulse Rate [Left] 124 Pulse Rate 124 Respiratory Rate 22 Blood Pressure [Right Calf] 132/63 Blood Pressure [Right Arm] 163/95 Blood Pressure 195/108 O2 Sat by Pulse Oximetry 92 Intake and Output: Intake & Output 07/21/20 07/22/20 07/23/20 07/24/20 11:59 11:59 11:59 11:59 Intake Total 2142 / 2142 1689 / 1689 1864 / 1864 1025 / 1025 Output Total 565 / 565 400 / 400 550 / 550 375 / 375 Balance 1577 / 1577 1289 / 1289 1314 / 1314 650 / 650 - Physical Exam Oriented: Not Oriented Eyes: Normal Ear: Normal Nose: Normal Throat: Normal Respiratory: Generalized, Diminished Cardiovascular: Normal : Normal Auscultation: Bowel Sounds: Increased Palpation: Normal Tenderness: Diffuse (tympanic abdomen with moderate distention .), Rigidity, Mild Skin: Decreased Turgur Musculoskeletal: Normal Psychiatric: Normal Mood Description: Calm Affect: Normal Speech Pattern: Clear, Appropriate - Laboratory and Diagnostics Result Diagrams: 07/22/20 05:10 07/22/20 05:10 Labs: 07/16/20 06:48 Blood Blood Culture - Final 07/16/20 06:40 Blood Blood Culture - Final 07/16/20 10:58 Stool Stool Culture - Final 07/16/20 10:58 Stool - Final 07/16/20 08:46 Urine,Catheterized Urine Culture - Final Laboratory WBC 25.9 X10^3/uL (3.6-10.0) H 07/22/20 05:10 RBC 3.68 X10^6/uL (3.5-5.4) 07/22/20 05:10 Hgb 11.3 g/dL (12.0-16.0) L 07/22/20 05:10 Hct 34.2 % (36.0-47.0) L 07/22/20 05:10 MCV 92.9 fL (80.0-100.0) 07/22/20 05:10 MCH 30.6 pg (27.0-34.0) 07/22/20 05:10 MCHC 32.9 g/dL (33.0-35.0) L 07/22/20 05:10 RDW 15.2 % (11.6-16.5) 07/22/20 05:10 Plt Count 272 X10^3/uL (150.0-450.0) 07/22/20 05:10 Plt Count Comment Adequate (ADEQUATE) 07/22/20 05:10 MPV 8.6 fL (7.4-11.0) 07/22/20 05:10 Neut % (Auto) 94.5 % (42.0-75.0) H 07/22/20 05:10 Lymph % (Auto) 2.4 % (21.0-51.0) L 07/22/20 05:10 [place] % (Auto) 3.0 % (0.0-13.0) 07/22/20 05:10 Eos % (Auto) 0.0 % (0.9-2.9) L 07/22/20 05:10 Baso % (Auto) 0.1 % (0.2-1.0) L 07/22/20 05:10 Neut # (Auto) 24.5 x10^3/uL (2.2-4.8) H 07/22/20 05:10 Lymph # (Auto) 0.6 X10^3/uL (1.3-2.9) L 07/22/20 05:10 [place] # (Auto) 0.8 x10^3/uL (0.3-0.8) 07/22/20 05:10 Eos # (Auto) 0.0 x10^3/uL (0.0-0.2) 07/22/20 05:10 Baso # (Auto) 0.0 X10^3/uL (0.0-0.1) 07/22/20 05:10 Absolute Nucleated RBC 0.2 /100WBC 07/22/20 05:10 Total Counted 100 07/22/20 05:10 Neutrophils % (Manual) 76 % (39-76) 07/22/20 05:10 Band Neutrophils % 11 % (0-10) H 07/22/20 05:10 Lymphocytes % (Manual) 10 % (13-43) L 07/22/20 05:10 Monocytes % (Manual) 3 % (4-9) L 07/22/20 05:10 Plt Morphology Comment Normal (NORMAL) 07/22/20 05:10 RBC Morphology Normal (NORMAL) 07/22/20 05:10 Crenated Cell 1+ A 07/18/20 04:38 D-Dimer 2.24 ug/ml (0.0-0.57) H* 07/22/20 06:00 Sample Site Rb 07/22/20 12:46 ABG pH 7.460 (7.35-7.45) H 07/22/20 12:46 ABG pCO2 29.0 mmHg (35.0-45.0) L 07/22/20 12:46 ABG pO2 73.0 mmHg (80.0-100.0) L 07/22/20 12:46 ABG HCO3 20.6 mmol/L (22-26) L 07/22/20 12:46 ABG O2 Saturation 95.0 % (90-100) 07/22/20 12:46 ABG Base Excess -2.2 mmol/L (-2.0-2.0) L 07/22/20 12:46 Chris Test Na 07/22/20 12:46 A-a Gradient 40.0 mmHg 07/22/20 12:46 FiO2 21.0 07/22/20 12:46 Blood Gas Comments [facility] well g[facility] 07/22/20 12:46 Sodium 136 mmol/L (136-145) 07/22/20 05:10 Corrected Sodium 137 mmol/L (136-145) 07/22/20 05:10 Potassium 4.7 mmol/L (3.5-5.1) 07/22/20 05:10 Chloride 106 mmol/L (98-107) 07/22/20 05:10 Carbon Dioxide 17.3 mmol/L (21-32) L 07/22/20 05:10 BUN 24 mg/dL (7-18) H 07/22/20 05:10 Creatinine 0.65 mg/dL (0.55-1.02) 07/22/20 05:10 Est GFR (MDRD) Af Amer > 60 (>60) 07/22/20 05:10 Est GFR (MDRD) Non-Af > 60 (>60) 07/22/20 05:10 Glucose 151 mg/dL (65-99) H 07/22/20 05:10 Lactic Acid 1.4 mmol/L (0.4-2.0) 07/20/20 05:30 Calcium 7.9 mg/dL (8.5-10.1) L 07/22/20 05:10 Corrected Calcium 8.6 mg/dL (8.5-10.1) 07/22/20 05:10 Magnesium 2.2 mg/dL (1.7-2.9) 07/20/20 05:30 Ferritin 1361 ng/mL (8-252) H 07/20/20 05:30 Total Bilirubin 0.80 mg/dL (0.2-1.0) 07/22/20 05:10 AST 31 Units/L (15-37) 07/22/20 05:10 ALT 16 Units/L (12-78) 07/22/20 05:10 Alkaline Phosphatase 47 Units/L (46-116) 07/22/20 05:10 Creatine Kinase 57 Units/L (26-192) 07/16/20 06:48 CK-MB (CK-2) < 1.0 ng/mL (0-4.0) 07/16/20 06:48 CK/CKMB % Calc 1.8 % (<4) 07/16/20 06:48 Troponin I < 0.02 ng/mL (0-1.5) 07/16/20 06:48 C-Reactive Protein 6.40 mg/L (0-3.0) H 07/22/20 05:10 B-Natriuretic Peptide 141 pg/mL (0-79) H 07/22/20 05:10 Total Protein 4.8 g/dL (6.4-8.2) L 07/22/20 05:10 Albumin 3.1 g/dL (3.4-5.0) L 07/22/20 05:10 Globulin 1.7 g/dL (2.5-4.5) L 07/22/20 05:10 Albumin/Globulin Ratio 1.8 Ratio (1.1-2.1) 07/22/20 05:10 Prealbumin 21.8 mg/dL (18-35.7) 07/22/20 05:10 Amylase 50 Units/L (25-115) 07/16/20 06:48 Amylase Cancelled 07/16/20 06:48 Lipase 108 Units/L (73-393) 07/16/20 06:48 Lipase Cancelled 07/16/20 06:48 Specimen Type Catherized urine 07/16/20 08:46 Urine Color Yellow (YELLOW) 07/16/20 08:46 Urine Appearance Clear (CLEAR) 07/16/20 08:46 Urine pH 6.0 (5.0 - 8.0) 07/16/20 08:46 Ur Specific [place] 1.015 (1.000-1.030) 07/16/20 08:46 Urine Protein 2+ (NEGATIVE) 07/16/20 08:46 Urine Glucose (UA) Negative (NEGATIVE) 07/16/20 08:46 Urine Ketones Negative (NEGATIVE) 07/16/20 08:46 Urine Occult Blood Negative (NEGATIVE) 07/16/20 08:46 Urine Nitrite Negative (NEGATIVE) 07/16/20 08:46 Urine Bilirubin Negative (NEGATIVE) 07/16/20 08:46 Urine Urobilinogen Normal (NORMAL) 07/16/20 08:46 Ur Leukocyte Esterase 1+ (NEGATIVE) 07/16/20 08:46 Urine RBC 0-2 /HPF (0-3) 07/16/20 08:46 Urine WBC 0-2 /HPF (0-5) 07/16/20 08:46 Ur Squamous Epith Cells Rare /HPF (NEGATIVE) 07/16/20 08:46 Amorphous Sediment Trace /HPF (NEGATIVE) 07/16/20 08:46 Urine Bacteria Trace /HPF (NEGATIVE) 07/16/20 08:46 Ur Culture Indicated? Yes/culture set up 07/16/20 08:46 Stool Description 15g unformed brown 07/16/20 10:58 Stool Description 15g unformed lamar 07/16/20 10:58 Stl Occult Blood (IFOB) Positive (NEGATIVE) A 07/16/20 10:58 Stool for White Cells Positive (NEGATIVE) A 07/16/20 10:58 Stl C. diff Tox B Gene Positive (NEGATIVE) A 07/16/20 10:58 Stl C. diff 027-NAP1-BI Positive (NEGATIVE) A 07/16/20 10:58 Stool H. pylori Ag Negative (NEGATIVE) 07/16/20 10:58 C. difficile Toxin A&B Positive (NEGATIVE) A 07/16/20 10:58 Cryptosporid parvum Ag Negative (NEGATIVE) 07/16/20 10:58 Giardia lamblia Ag Negative (NEGATIVE) 07/16/20 10:58 SARS CoV-2 RNA Rapid JULIET Positive (NEGATIVE) A 07/16/20 06:02 - Plan (1) Bronchopneumonia Status: Acute Plan: NS AT 25 ML/HR, PROCAL AT 50 ML/HR, FLAGYL 500MG IV Q6H, VANCOMYCIN 250MG PO QID, LOMOTIL 1 TAB TID PRN, ALBUEROL NEBS QID, ASCORBIC ACID 1500MG IV Q6HR, TESSALON PERLES 200MG PO TID, TUSSIONEX SUSP 5ML PO Q12H PRN, PEPCID 20MG IV BID, ROBITUSSIN DM 10 ML PO QID, VSL 2 CAPS PO DAILY, MELATONIN 10MG PO HS, SOLU-MEDROL 80MG IV Q8H, MYLICON 40MG PO TID, ZOFRAN 4MG IV Q6H PRN, LOVENOX 40MG SC BID, ALBUMIN 25% IV DAILY, METOPROLOL 12.5MG PO BID, PROTONIX 40MG IV BID, PHENERGAN 12.5MG IM Q6H PRN, MAGIC MOUTHWASH QID, DIFLUCAN 100MG PO DAILY, PHENOBARBITAL 65MG IV Q8H PRN, AND ZINC SULFATE 220MG PO DAILY (2) COVID-19 virus infection Status: Acute (3) C. difficile diarrhea Status: Acute (4) Acute dehydration Status: Resolved (5) Generalized weakness Status: Acute (6) Abdominal pain Status: Acute Qualifiers: Abdominal location: generalized Qualified Code(s): R10.84 - Generalized abdominal pain Plan: OBTAIN ABDOMEN/PELVIS CT WITH CONTRAST
[2020-07-23] MEDS: LASIX IVP SCH ×2 (14:14→21:47)
[2020-07-23 14:20] LABS: BASOPHILS # (AUTO) 0.1 X10^3/uL (0.0-0.1); BASOPHILS % (AUTO) 0.2 % (0.2-1.0); LYMPHOCYTES # (AUTO) 0.9 X10^3/uL (1.3-2.9); MEAN CORPUSCULAR HGB CONC 33.4 g/dL (33.0-35.0); MEAN CORPUSCULAR VOLUME 92.9 fL (80.0-100.0); MEAN PLATELET VOLUME 8.6 fL (7.4-11.0); MONOCYTES # (AUTO) 1.2 x10^3/uL (0.3-0.8); MONOCYTES % (AUTO) 4.2 % (0.0-13.0); NEUTROPHILS # (AUTO) 26.8 x10^3/uL (2.2-4.8); NEUTROPHILS % (AUTO) 92.6 % (42.0-75.0); PLATELET COUNT 198 X10^3/uL (150.0-450.0); RED BLOOD COUNT 2.79 X10^6/uL (3.5-5.4); RED CELL DISTRIBUTION WIDTH 15.3 % (11.6-16.5); WHITE BLOOD COUNT 28.9 X10^3/uL (3.6-10.0)
[2020-07-23 14:35] LABS: PREALBUMIN 18.3 mg/dL (18-35.7)
[2020-07-23 14:36] LABS: ALANINE AMINOTRANSFERASE 16 Units/L (12-78); ALBUMIN 3.1 g/dL (3.4-5.0); ALKALINE PHOSPHATASE 47 Units/L (46-116); ASPARTATE AMINO TRANSFERASE 22 Units/L (15-37); BLOOD UREA NITROGEN 29 mg/dL (7-18); CALCIUM 7.4 mg/dL (8.5-10.1); CARBON DIOXIDE 21.9 mmol/L (21-32); CHLORIDE 107 mmol/L (98-107); COR CA(FOR HYPOALB) 8.1 mg/dL (8.5-10.1); COR NA(FOR HYPERGLY) 138 mmol/L (136-145); SODIUM 137 mmol/L (136-145); TOTAL PROTEIN 4.3 g/dL (6.4-8.2); eGFR NON BLACK RACES > 60 (>60)
[2020-07-23 16:00] LABS: BAND NEUTROPHILS % 6 % (0-10); BASOPHILS % (MANUAL) 1 % (0-1); HEMATOCRIT 30.5 % (36.0-47.0); PLATELET MORPHOLOGY COMMENT NORMAL (NORMAL)
--- NOTE | 2020-07-23 17:05 | DR.PROGNOT ---
Hospital Progress Notes - Progress Note for Day of: Progress Note Date: 07/23/20 - Chief Complaint Chief Complaint: still having loose , watery BM , no bleeding . last abdominal Xray is showing distended colon . WBC 28.9 BUN/Creat 29/0.8. CRP 3.2. temp 97 - Past Medical Family Social History Past Med/Fam/Surg Hx: No changes since H&P Allergies: Allergies No Known Drug Allergies Allergy (Verified 03/12/19 18:07) - Review Of Systems ROS: No change since H&P - Vital Signs Vital Signs: Temperature 97.3 F Pulse Rate [Right Brachial] 83 Pulse Rate [Left] 105 Pulse Rate 124 Respiratory Rate 20 Blood Pressure [Right Calf] 132/63 Blood Pressure [Right Arm] 115/60 Blood Pressure 195/108 O2 Sat by Pulse Oximetry 93 - Physical Exam Oriented: Not Oriented Eyes: Normal Ear: Normal Nose: Normal Throat: Normal Respiratory: Generalized, Diminished Cardiovascular: Normal : Normal GI:Auscultation: Decreased (distended but soft abdomen with very hypoactive BS ) GI:Palpation: Normal GI: Tenderness: Diffuse (tympanic abdomen with moderate distention .), Rigidity, Mild Skin: Decreased Turgur Musculoskeletal: Normal Psychiatric: Normal Mood Description: Calm Affect: Normal Speech Pattern: Clear, Appropriate - Laboratory and Diagnostics Result Diagrams: 07/23/20 13:48 07/23/20 13:48 Labs: 07/16/20 06:48 Blood Blood Culture - Final 07/16/20 06:40 Blood Blood Culture - Final 07/16/20 10:58 Stool Stool Culture - Final 07/16/20 10:58 Stool - Final 07/16/20 08:46 Urine,Catheterized Urine Culture - Final Laboratory WBC 28.9 X10^3/uL (3.6-10.0) H 07/23/20 13:48 RBC 2.79 X10^6/uL (3.5-5.4) L 07/23/20 13:48 Hgb 10.0 g/dL (12.0-16.0) L 07/23/20 13:48 Hct 30.5 % (36.0-47.0) L 07/23/20 13:48 MCV 92.9 fL (80.0-100.0) 07/23/20 13:48 MCH 31.0 pg (27.0-34.0) 07/23/20 13:48 MCHC 33.4 g/dL (33.0-35.0) 07/23/20 13:48 RDW 15.3 % (11.6-16.5) 07/23/20 13:48 Plt Count 198 X10^3/uL (150.0-450.0) 07/23/20 13:48 Plt Count Comment Adequate (ADEQUATE) 07/23/20 13:48 MPV 8.6 fL (7.4-11.0) 07/23/20 13:48 Neut % (Auto) 92.6 % (42.0-75.0) H 07/23/20 13:48 Lymph % (Auto) 3.0 % (21.0-51.0) L 07/23/20 13:48 [place] % (Auto) 4.2 % (0.0-13.0) 07/23/20 13:48 Eos % (Auto) 0.0 % (0.9-2.9) L 07/23/20 13:48 Baso % (Auto) 0.2 % (0.2-1.0) 07/23/20 13:48 Neut # (Auto) 26.8 x10^3/uL (2.2-4.8) H 07/23/20 13:48 Lymph # (Auto) 0.9 X10^3/uL (1.3-2.9) L 07/23/20 13:48 [place] # (Auto) 1.2 x10^3/uL (0.3-0.8) H 07/23/20 13:48 Eos # (Auto) 0.0 x10^3/uL (0.0-0.2) 07/23/20 13:48 Baso # (Auto) 0.1 X10^3/uL (0.0-0.1) 07/23/20 13:48 Absolute Nucleated RBC 0.0 /100WBC 07/23/20 13:48 Total Counted 100 07/23/20 13:48 Neutrophils % (Manual) 79 % (39-76) H 07/23/20 13:48 Band Neutrophils % 6 % (0-10) 07/23/20 13:48 Lymphocytes % (Manual) 11 % (13-43) L 07/23/20 13:48 Monocytes % (Manual) 3 % (4-9) L 07/23/20 13:48 Basophils % (Manual) 1 % (0-1) 07/23/20 13:48 Plt Morphology Comment Normal (NORMAL) 07/23/20 13:48 RBC Morphology Normal (NORMAL) 07/23/20 13:48 Crenated Cell 1+ A 07/18/20 04:38 D-Dimer 2.24 ug/ml (0.0-0.57) H* 07/22/20 06:00 Sample Site Rb 07/22/20 12:46 ABG pH 7.460 (7.35-7.45) H 07/22/20 12:46 ABG pCO2 29.0 mmHg (35.0-45.0) L 07/22/20 12:46 ABG pO2 73.0 mmHg (80.0-100.0) L 07/22/20 12:46 ABG HCO3 20.6 mmol/L (22-26) L 07/22/20 12:46 ABG O2 Saturation 95.0 % (90-100) 07/22/20 12:46 ABG Base Excess -2.2 mmol/L (-2.0-2.0) L 07/22/20 12:46 Chris Test Na 07/22/20 12:46 A-a Gradient 40.0 mmHg 07/22/20 12:46 FiO2 21.0 07/22/20 12:46 Blood Gas Comments [facility] well [facility] 07/22/20 12:46 Sodium 137 mmol/L (136-145) 07/23/20 13:48 Corrected Sodium 138 mmol/L (136-145) 07/23/20 13:48 Potassium 4.3 mmol/L (3.5-5.1) 07/23/20 13:48 Chloride 107 mmol/L (98-107) 07/23/20 13:48 Carbon Dioxide 21.9 mmol/L (21-32) 07/23/20 13:48 BUN 29 mg/dL (7-18) H 07/23/20 13:48 Creatinine 0.80 mg/dL (0.55-1.02) 07/23/20 13:48 Est GFR (MDRD) Af Amer > 60 (>60) 07/23/20 13:48 Est GFR (MDRD) Non-Af > 60 (>60) 07/23/20 13:48 Glucose 134 mg/dL (65-99) H 07/23/20 13:48 Lactic Acid 1.4 mmol/L (0.4-2.0) 07/20/20 05:30 Calcium 7.4 mg/dL (8.5-10.1) L 07/23/20 13:48 Corrected Calcium 8.1 mg/dL (8.5-10.1) L 07/23/20 13:48 Magnesium 2.2 mg/dL (1.7-2.9) 07/20/20 05:30 Ferritin 1361 ng/mL (8-252) H 07/20/20 05:30 Total Bilirubin 0.70 mg/dL (0.2-1.0) 07/23/20 13:48 AST 22 Units/L (15-37) 07/23/20 13:48 ALT 16 Units/L (12-78) 07/23/20 13:48 Alkaline Phosphatase 47 Units/L (46-116) 07/23/20 13:48 Creatine Kinase 57 Units/L (26-192) 07/16/20 06:48 CK-MB (CK-2) < 1.0 ng/mL (0-4.0) 07/16/20 06:48 CK/CKMB % Calc 1.8 % (<4) 07/16/20 06:48 Troponin I < 0.02 ng/mL (0-1.5) 07/16/20 06:48 C-Reactive Protein 3.20 mg/L (0-3.0) H 07/23/20 13:48 B-Natriuretic Peptide 287 pg/mL (0-79) H 07/23/20 13:48 Total Protein 4.3 g/dL (6.4-8.2) L 07/23/20 13:48 Albumin 3.1 g/dL (3.4-5.0) L 07/23/20 13:48 Globulin 1.2 g/dL (2.5-4.5) L 07/23/20 13:48 Albumin/Globulin Ratio 2.6 Ratio (1.1-2.1) H 07/23/20 13:48 Prealbumin 18.3 mg/dL (18-35.7) 07/23/20 13:48 Amylase 50 Units/L (25-115) 07/16/20 06:48 Amylase Cancelled 07/16/20 06:48 Lipase 108 Units/L (73-393) 07/16/20 06:48 Lipase Cancelled 07/16/20 06:48 Specimen Type Catherized urine 07/16/20 08:46 Urine Color Yellow (YELLOW) 07/16/20 08:46 Urine Appearance Clear (CLEAR) 07/16/20 08:46 Urine pH 6.0 (5.0 - 8.0) 07/16/20 08:46 Ur Specific [place] 1.015 (1.000-1.030) 07/16/20 08:46 Urine Protein 2+ (NEGATIVE) 07/16/20 08:46 Urine Glucose (UA) Negative (NEGATIVE) 07/16/20 08:46 Urine Ketones Negative (NEGATIVE) 07/16/20 08:46 Urine Occult Blood Negative (NEGATIVE) 07/16/20 08:46 Urine Nitrite Negative (NEGATIVE) 07/16/20 08:46 Urine Bilirubin Negative (NEGATIVE) 07/16/20 08:46 Urine Urobilinogen Normal (NORMAL) 07/16/20 08:46 Ur Leukocyte Esterase 1+ (NEGATIVE) 07/16/20 08:46 Urine RBC 0-2 /HPF (0-3) 07/16/20 08:46 Urine WBC 0-2 /HPF (0-5) 07/16/20 08:46 Ur Squamous Epith Cells Rare /HPF (NEGATIVE) 07/16/20 08:46 Amorphous Sediment Trace /HPF (NEGATIVE) 07/16/20 08:46 Urine Bacteria Trace /HPF (NEGATIVE) 07/16/20 08:46 Ur Culture Indicated? Yes/culture set up 07/16/20 08:46 Stool Description 15g unformed brown 07/16/20 10:58 Stool Description 15g unformed brown 07/16/20 10:58 Stl Occult Blood (IFOB) Positive (NEGATIVE) A 07/16/20 10:58 Stool for White Cells Positive (NEGATIVE) A 07/16/20 10:58 Stl C. diff Tox B Gene Positive (NEGATIVE) A 07/16/20 10:58 Stl C. diff 027-NAP1-BI Positive (NEGATIVE) A 07/16/20 10:58 Stool H. pylori Ag Negative (NEGATIVE) 07/16/20 10:58 C. difficile Toxin A&B Positive (NEGATIVE) A 07/16/20 10:58 Cryptosporid parvum Ag Negative (NEGATIVE) 07/16/20 10:58 Giardia lamblia Ag Negative (NEGATIVE) 07/16/20 10:58 SARS CoV-2 RNA Rapid JULIET Positive (NEGATIVE) A 07/16/20 06:02 - Assessment and Plan 1: Covid19 pneumonia . C Diff colitis with distention .. no necrosis or ischemia so far . only clear liquis , Flagyl IV and Oral Vancomycin . on TPN . Pt is not a surgical candidate .. prognosis is poor . - Problem Patient Problems: Patient Problems Abdominal pain (Acute) R10.9 Diarrhea (Acute) R19.7 Acute dehydration (Resolved) E86.0 COVID-19 virus infection (Acute) U07.1 Bronchopneumonia (Acute) J18.0 C. difficile diarrhea (Acute) A04.72 Generalized weakness (Acute) R53.1
[2020-07-23] MEDS: LOPRESSOR TAB 25 MG PO SCH (21:46)
[2020-07-23] MEDS: MELATONIN PO SCH (21:48)
[2020-07-24] MEDS: ASCORBIC ACID INJ MULTI-DOSE VIAL 1,500 MG in NS 50 ML IV 50 ML IV SCH ×4 (02:24→22:00)
[2020-07-24] MEDS: FLAGYL IV PREMIX 500 MG BAG 500 MG/100 ML BAG IV SCH ×4 (03:56→22:00)
[2020-07-24] MEDS: SOLU-Medrol 40 MG VIAL IVP SCH ×3 (05:09→22:00)
[2020-07-24] MEDS: MYLICON TAB 80 MG CHEW PO SCH ×2 (05:09→14:54)
[2020-07-24] MEDS: TESSALON PERLES PO SCH ×2 (05:10→14:54)
[2020-07-24] MEDS: NS 1000 ML 1,000 ML IV SCH ×2 (05:59→17:38)
--- NOTE | 2020-07-24 06:06 | RAD ---
HISTORYShortness of breathSTUDYChest AP [id number]/12/2021FINDINGSThere is a left-sided PICC line in good position. The heart is wi thin normal limits in size. Multifocal alveolar and interstitial infiltrates are present not signific antly changed in degree or distribution from the prior examination. Lungs remain hypoinflated. No ple ural effusions are identified. Bony thorax is unremarkable.IMPRESSIONNo change bilateral interstitial and alveolar infiltratesElectronically signed by: SHAKILA BRAN (Jul 24, 2020 06:05:06)
--- NOTE | 2020-07-24 06:28 | RAD ---
HISTORYAbdominal painSTUDYKUBCOMPARISONCT abdomen pelvis 07/23/2020, KUB 07/23/2020FINDINGSThere has been some improvement in the bowel dilatation noted on the prior examination likely indicative of slight improvement in ileus. No abnormal masses or abnormal calcifications are identified. Regional skeleton is intact.IMPRESSIONSlight improvement ileusElectronically signed by: SHAKILA BRAN (Jul 24, 2020 06:25:02)
[2020-07-24 07:42] LABS: BASOPHILS # (AUTO) 0.1 X10^3/uL (0.0-0.1); BASOPHILS % (AUTO) 0.3 % (0.2-1.0); HEMOGLOBIN 10.8 g/dL (12.0-16.0); LYMPHOCYTES % (AUTO) 4.4 % (21.0-51.0)
[2020-07-24 07:44] LABS: HEMATOCRIT 33.5 % (36.0-47.0); LYMPHOCYTES # (AUTO) 1.5 X10^3/uL (1.3-2.9); MEAN CORPUSCULAR HGB CONC 32.2 g/dL (33.0-35.0); MEAN CORPUSCULAR VOLUME 93.3 fL (80.0-100.0); MONOCYTES # (AUTO) 1.1 x10^3/uL (0.3-0.8); MONOCYTES % (AUTO) 3.2 % (0.0-13.0); NEUTROPHILS # (AUTO) 32.1 x10^3/uL (2.2-4.8); NEUTROPHILS % (AUTO) 92.1 % (42.0-75.0); PLATELET COUNT 173 X10^3/uL (150.0-450.0); RED BLOOD COUNT 3.59 X10^6/uL (3.5-5.4); RED CELL DISTRIBUTION WIDTH 15.1 % (11.6-16.5)
[2020-07-24 07:48] LABS: ALANINE AMINOTRANSFERASE 16 Units/L (12-78); ALBUMIN 3.2 g/dL (3.4-5.0); ALKALINE PHOSPHATASE 53 Units/L (46-116); ASPARTATE AMINO TRANSFERASE 28 Units/L (15-37); BLOOD UREA NITROGEN 33 mg/dL (7-18); CARBON DIOXIDE 20.9 mmol/L (21-32); CHLORIDE 106 mmol/L (98-107); COR CA(FOR HYPOALB) 8.6 mg/dL (8.5-10.1); COR NA(FOR HYPERGLY) 141 mmol/L (136-145); CREATININE 0.83 mg/dL (0.55-1.02); SODIUM 140 mmol/L (136-145); TOTAL PROTEIN 4.8 g/dL (6.4-8.2); eGFR NON BLACK RACES > 60 (>60)
[2020-07-24 07:53] LABS: WHITE BLOOD COUNT 34.9 X10^3/uL (3.6-10.0)
[2020-07-24 08:24] LABS: BAND NEUTROPHILS % 3 % (0-10)
[2020-07-24 08:25] LABS: PLATELET MORPHOLOGY COMMENT NORMAL (NORMAL)
[2020-07-24] MEDS: COLACE CAP 100 MG PO SCH (09:39)
[2020-07-24] MEDS: VSL#3 PO SCH (09:45)
[2020-07-24] MEDS: MAGIC MOUTHWASH MT SCH ×3 (09:45→16:58)
[2020-07-24] MEDS: DIFLUCAN PO SCH (09:45)
[2020-07-24] MEDS: ROBITUSSIN DM PO SCH ×4 (09:45→22:30)
[2020-07-24] MEDS: VITAMIN D3 125 mcg (5,000 UNITS) PO SCH (09:45)
[2020-07-24] MEDS: ZINC SULFATE PO SCH (09:45)
[2020-07-24] MEDS: LOPRESSOR TAB 25 MG PO SCH (09:45)
[2020-07-24] MEDS: LASIX IVP SCH ×2 (09:51→22:00)
[2020-07-24] MEDS: PROTONIX INJ 40 MG VIAL IVP SCH ×2 (09:51→22:00)
[2020-07-24] MEDS: LOVENOX INJ 40 MG SYR SC SCH ×2 (09:52→22:00)
[2020-07-24] MEDS: PEPCID 20 MG IV PREMIX* 20 MG/50 ML BAG IV SCH (09:52)
--- NOTE | 2020-07-24 11:00 | DR.PROGNOT ---
Hospital Progress Notes - Progress Note for Day of: Progress Note Date: 07/24/20 - Chief Complaint Chief Complaint: passing flatus and still having loose BM , no bleeding . last abdominal Xray is showing improvement of ileus with less distended colon . WBC 34.9 BUN/Creat 33/0.8. CRP 3.2. temp 97 - Past Medical Family Social History Past Med/Fam/Surg Hx: No changes since H&P Allergies: Allergies No Known Drug Allergies Allergy (Verified 03/12/19 18:07) - Review Of Systems ROS: No change since H&P - Vital Signs Vital Signs: Temperature 97.8 F Pulse Rate [Right Brachial] 87 Pulse Rate [Left] 78 Pulse Rate 80 Respiratory Rate 20 Blood Pressure [Right Calf] 132/63 Blood Pressure [Right Arm] 148/63 Blood Pressure 195/108 O2 Sat by Pulse Oximetry 97 - Physical Exam Oriented: Not Oriented Eyes: Normal Ear: Normal Nose: Normal Throat: Normal Respiratory: Generalized, Diminished Cardiovascular: Normal : Normal GI:Auscultation: Decreased (distended but soft abdomen with very hypoactive BS ) GI:Palpation: Normal GI: Tenderness: Diffuse (tympanic abdomen with moderate distention .), Rigidity, Mild Skin: Decreased Turgur Musculoskeletal: Normal Psychiatric: Normal Mood Description: Calm Affect: Normal Speech Pattern: Clear, Appropriate - Laboratory and Diagnostics Result Diagrams: 07/24/20 06:41 07/24/20 06:41 Labs: 07/16/20 06:48 Blood Blood Culture - Final 07/16/20 06:40 Blood Blood Culture - Final 07/16/20 10:58 Stool Stool Culture - Final 07/16/20 10:58 Stool - Final 07/16/20 08:46 Urine,Catheterized Urine Culture - Final Laboratory WBC 34.9 X10^3/uL (3.6-10.0) H* 07/24/20 06:41 RBC 3.59 X10^6/uL (3.5-5.4) 07/24/20 06:41 Hgb 10.8 g/dL (12.0-16.0) L 07/24/20 06:41 Hct 33.5 % (36.0-47.0) L 07/24/20 06:41 MCV 93.3 fL (80.0-100.0) 07/24/20 06:41 MCH 30.0 pg (27.0-34.0) 07/24/20 06:41 MCHC 32.2 g/dL (33.0-35.0) L 07/24/20 06:41 RDW 15.1 % (11.6-16.5) 07/24/20 06:41 Plt Count 173 X10^3/uL (150.0-450.0) 07/24/20 06:41 Plt Count Comment Adequate (ADEQUATE) 07/24/20 06:41 MPV 9.0 fL (7.4-11.0) 07/24/20 06:41 Neut % (Auto) 92.1 % (42.0-75.0) H 07/24/20 06:41 Lymph % (Auto) 4.4 % (21.0-51.0) L 07/24/20 06:41 [place] % (Auto) 3.2 % (0.0-13.0) 07/24/20 06:41 Eos % (Auto) 0.0 % (0.9-2.9) L 07/24/20 06:41 Baso % (Auto) 0.3 % (0.2-1.0) 07/24/20 06:41 Neut # (Auto) 32.1 x10^3/uL (2.2-4.8) H 07/24/20 06:41 Lymph # (Auto) 1.5 X10^3/uL (1.3-2.9) 07/24/20 06:41 [place] # (Auto) 1.1 x10^3/uL (0.3-0.8) H 07/24/20 06:41 Eos # (Auto) 0.0 x10^3/uL (0.0-0.2) 07/24/20 06:41 Baso # (Auto) 0.1 X10^3/uL (0.0-0.1) 07/24/20 06:41 Absolute Nucleated RBC 0.3 /100WBC 07/24/20 06:41 Total Counted 100 07/24/20 06:41 Neutrophils % (Manual) 94 % (39-76) H 07/24/20 06:41 Band Neutrophils % 3 % (0-10) 07/24/20 06:41 Lymphocytes % (Manual) Not Reportable 07/24/20 06:41 Monocytes % (Manual) 3 % (4-9) L 07/24/20 06:41 Basophils % (Manual) 1 % (0-1) 07/23/20 13:48 Plt Morphology Comment Normal (NORMAL) 07/24/20 06:41 RBC Morphology Normal (NORMAL) 07/24/20 06:41 Crenated Cell 1+ A 07/18/20 04:38 D-Dimer 1.76 ug/ml (0.0-0.57) H* 07/24/20 08:20 Sample Site Rb 07/22/20 12:46 ABG pH 7.460 (7.35-7.45) H 07/22/20 12:46 ABG pCO2 29.0 mmHg (35.0-45.0) L 07/22/20 12:46 ABG pO2 73.0 mmHg (80.0-100.0) L 07/22/20 12:46 ABG HCO3 20.6 mmol/L (22-26) L 07/22/20 12:46 ABG O2 Saturation 95.0 % (90-100) 07/22/20 12:46 ABG Base Excess -2.2 mmol/L (-2.0-2.0) L 07/22/20 12:46 Chris Test Na 07/22/20 12:46 A-a Gradient 40.0 mmHg 07/22/20 12:46 FiO2 21.0 07/22/20 12:46 Blood Gas Comments [facility] well [facility] 07/22/20 12:46 Sodium 140 mmol/L (136-145) 07/24/20 06:41 Corrected Sodium 141 mmol/L (136-145) 07/24/20 06:41 Potassium 4.0 mmol/L (3.5-5.1) 07/24/20 06:41 Chloride 106 mmol/L (98-107) 07/24/20 06:41 Carbon Dioxide 20.9 mmol/L (21-32) L 07/24/20 06:41 BUN 33 mg/dL (7-18) H 07/24/20 06:41 Creatinine 0.83 mg/dL (0.55-1.02) 07/24/20 06:41 Est GFR (MDRD) Af Amer > 60 (>60) 07/24/20 06:41 Est GFR (MDRD) Non-Af > 60 (>60) 07/24/20 06:41 Glucose 143 mg/dL (65-99) H 07/24/20 06:41 Lactic Acid 1.4 mmol/L (0.4-2.0) 07/20/20 05:30 Calcium 8.0 mg/dL (8.5-10.1) L 07/24/20 06:41 Corrected Calcium 8.6 mg/dL (8.5-10.1) 07/24/20 06:41 Magnesium 2.2 mg/dL (1.7-2.9) 07/20/20 05:30 Ferritin 1361 ng/mL (8-252) H 07/20/20 05:30 Total Bilirubin 0.70 mg/dL (0.2-1.0) 07/24/20 06:41 AST 28 Units/L (15-37) 07/24/20 06:41 ALT 16 Units/L (12-78) 07/24/20 06:41 Alkaline Phosphatase 53 Units/L (46-116) 07/24/20 06:41 Creatine Kinase 57 Units/L (26-192) 07/16/20 06:48 CK-MB (CK-2) < 1.0 ng/mL (0-4.0) 07/16/20 06:48 CK/CKMB % Calc 1.8 % (<4) 07/16/20 06:48 Troponin I < 0.02 ng/mL (0-1.5) 07/16/20 06:48 C-Reactive Protein 2.80 mg/L (0-3.0) 07/24/20 06:41 B-Natriuretic Peptide 287 pg/mL (0-79) H 07/23/20 13:48 Total Protein 4.8 g/dL (6.4-8.2) L 07/24/20 06:41 Albumin 3.2 g/dL (3.4-5.0) L 07/24/20 06:41 Globulin 1.6 g/dL (2.5-4.5) L 07/24/20 06:41 Albumin/Globulin Ratio 2.0 Ratio (1.1-2.1) 07/24/20 06:41 Prealbumin 18.3 mg/dL (18-35.7) 07/23/20 13:48 Amylase 50 Units/L (25-115) 07/16/20 06:48 Amylase Cancelled 07/16/20 06:48 Lipase 108 Units/L (73-393) 07/16/20 06:48 Lipase Cancelled 07/16/20 06:48 Specimen Type Catherized urine 07/16/20 08:46 Urine Color Yellow (YELLOW) 07/16/20 08:46 Urine Appearance Clear (CLEAR) 07/16/20 08:46 Urine pH 6.0 (5.0 - 8.0) 07/16/20 08:46 Ur Specific [place] 1.015 (1.000-1.030) 07/16/20 08:46 Urine Protein 2+ (NEGATIVE) 07/16/20 08:46 Urine Glucose (UA) Negative (NEGATIVE) 07/16/20 08:46 Urine Ketones Negative (NEGATIVE) 07/16/20 08:46 Urine Occult Blood Negative (NEGATIVE) 07/16/20 08:46 Urine Nitrite Negative (NEGATIVE) 07/16/20 08:46 Urine Bilirubin Negative (NEGATIVE) 07/16/20 08:46 Urine Urobilinogen Normal (NORMAL) 07/16/20 08:46 Ur Leukocyte Esterase 1+ (NEGATIVE) 07/16/20 08:46 Urine RBC 0-2 /HPF (0-3) 07/16/20 08:46 Urine WBC 0-2 /HPF (0-5) 07/16/20 08:46 Ur Squamous Epith Cells Rare /HPF (NEGATIVE) 07/16/20 08:46 Amorphous Sediment Trace /HPF (NEGATIVE) 07/16/20 08:46 Urine Bacteria Trace /HPF (NEGATIVE) 07/16/20 08:46 Ur Culture Indicated? Yes/culture set up 07/16/20 08:46 Stool Description 15g unformed brown 07/16/20 10:58 Stool Description 15g unformed brown 07/16/20 10:58 Stl Occult Blood (IFOB) Positive (NEGATIVE) A 07/16/20 10:58 Stool for White Cells Positive (NEGATIVE) A 07/16/20 10:58 Stl C. diff Tox B Gene Positive (NEGATIVE) A 07/16/20 10:58 Stl C. diff 027-NAP1-BI Positive (NEGATIVE) A 07/16/20 10:58 Stool H. pylori Ag Negative (NEGATIVE) 07/16/20 10:58 C. difficile Toxin A&B Positive (NEGATIVE) A 07/16/20 10:58 Cryptosporid parvum Ag Negative (NEGATIVE) 07/16/20 10:58 Giardia lamblia Ag Negative (NEGATIVE) 07/16/20 10:58 SARS CoV-2 RNA Rapid JULIET Positive (NEGATIVE) A 07/16/20 06:02 - Assessment and Plan 1: Covid19 pneumonia . C Diff colitis with distention .. no necrosis or i schemia so far . only clear liquis , Flagyl IV and Oral Vancomycin . on TPN . Pt is not a surgical candidate .. prognosis is poor . to discharge on Hospice - Problem Patient Problems: Patient Problems Abdominal pain (Acute) R10.9 Diarrhea (Acute) R19.7 Acute dehydration (Resolved) E86.0 COVID-19 virus infection (Acute) U07.1 Bronchopneumonia (Acute) J18.0 C. difficile diarrhea (Acute) A04.72 Generalized weakness (Acute) R53.1
[2020-07-24] MEDS: ALBUMIN HUMAN 25%- 100 ML 100 ML IV SCH (11:33)
[2020-07-24] MEDS: ACCUNEB 1.25 MG NEBULE NEB SCH ×4 (11:54→21:35)
--- NOTE | 2020-07-24 21:36 | PCM.PROG ---
Progress Note - Progress Note for Day of Date of Exam: 07/24/20 - Subjective Subjective: IS BEING TREATED FOR BRONCHOPNEUMONIA DUE TO COVID-19, C DIFF DIARRHEA, ACUTE DEHYDRATION, AND GENERALIZED WEAKNESS. TODAY, SHE IS ALERT AND ORIENTED, LYING IN BED ON MORNING ROUNDS. SHE CONTINUES WITH COMPLAINTS OF WEAKNESS, ABDOMINAL PAIN, AND ABDOMINAL DISTENTION. SHE IS CURRENTLY ON ROOM AIR. HER SATURATIONS HAVE BEEN 95-97% THIS MORNING AND THROUGHOUT THE NIGHT. ON EXAMINATION, HEART IS REGULAR IN RATE AND RHYTYHM. BILATERAL LUNGS ARE NOTED WITH DIMINISHED LUNG SOUNDS THROUGHOUT. ABDOMEN IS DISTENDED AND NOTED WITH DIFFUSE TENDERNESS. HYPERACTIVE BOWEL SOUNDS ARE NOTED IN ALL QUADRANTS. HER VITALS THIS MORNING ARE: 98.4-99-22-95%-118/78. LABS WERE OBTAINED. ABNORMAL LAB VALUES INCLUDE THE FOLLOWING: WBC 34.9, HGB 10.8, HCT 33.5, D-DIMER 1.76, CARBON DIOXIDE 20.9, BUN 33, GLUCOSE 143, CALCIUM 8.0, TOTAL PROTEIN 4.8, ALBUMIN 3.2, GLOBULIN 1.6. STOOL, URINE, AND BLOOD CULTURES ARE ALL NEGATIVE. A CHEST XRAY WAS OBTAINED TODAY AND REVEALED: No change bilateral interstitial and alveolar infiltrates. KUB OBTAINED AND REVEALED: Slight improvement ileus. CO NSULTED WITH PATIENT. SHE IS NOT A SURGICAL CANDIDATE. SHE IS CURRENTLY RECEIVING NS AT 25 ML/HR, PROCAL AT 40 ML/HR, MYLICON 40MG PO TID, FLAGYL 500MG IV Q6H, VANCOMYCIN 250MG PO QID, LOMOTIL 1 TAB TID PRN, ALBUEROL NEBS QID, ASCORBIC ACID 1500MG IV Q6HR, TESSALON PERLES 200MG PO TID, TUSSIONEX SUSP 5ML PO Q12H PRN, PEPCID 20MG IV BID, ROBITUSSIN DM 10 ML PO QID, VSL 2 CAPS PO DAILY, MELATONIN 10MG PO HS, SOLU-MEDROL 20MG IV Q8H, ZOFRAN 4MG IV Q6H PRN, LOVENOX 40MG SC BID, ALBUMIN 25% IV DAILY, METOPROLOL 12.5MG PO BID, PROTONIX 40MG IV BID, PHENERGAN 12.5MG IM Q6H PRN, MAGIC MOUTHWASH QID, DIFLUCAN 100MG PO DAILY, PHENOBARBITAL 65MG IV Q8H PRN, AND ZINC SULFATE 220MG PO DAILY. WE WILL CONTINUE WITH CURRENT PLAN OF CARE TODAY. OTHERWISE, WE PLAN TO FOLLOW UP WITH AM LABS, CHEST XRAY, AND CONTINUE TO MONITOR. TIME SPENT ON CLINICAL ASSESSMENT, PHYSICAL EXAMINATION, REVIEWING LABS/IMAGING, AND DECISION MAKING GREATER THAN 75 MINUTES. - Past Medical Family Social History Past Med/Fam/Surg Hx: No changes since H&P Allergies: Allergies No Known Drug Allergies Allergy (Verified 03/12/19 18:07) - Review of Systems ROS: No change since H&P - Vital Signs and I&O's Vital Signs: Temperature 98.3 F Pulse Rate [Right Brachial] 74 Pulse Rate [Left] 78 Pulse Rate 80 Respiratory Rate 24 Blood Pressure [Right Calf] 132/63 Blood Pressure [Right Arm] 122/94 Blood Pressure 195/108 O2 Sat by Pulse Oximetry 95 Intake and Output: Intake & Output 07/22/20 07/23/20 07/24/20 07/25/20 11:59 11:59 11:59 11:59 Intake Total 1689 / 1689 1864 / 1864 1870 / 1870 693 / 693 Output Total 400 / 400 550 / 550 1700 / 1700 675 / 675 Balance 1289 / 1289 1314 / 1314 170 / 170 - Physical Exam Oriented: Not Oriented Eyes: Normal Ear: Normal Nose: Normal Throat: Normal Respiratory: Generalized, Diminished Cardiovascular: Normal : Normal Auscultation: Bowel Sounds: Decreased (distended but soft abdomen with very hypoactive BS ) Tenderness: Diffuse (tympanic abdomen with moderate distention .), Rigidity, Mild Skin: Decreased Turgur Musculoskeletal: Normal Psychiatric: Normal Mood Description: Calm Affect: Normal Speech Pattern: Clear, Appropriate - Laboratory and Diagnostics Result Diagrams: 07/24/20 06:41 07/24/20 06:41 Labs: 07/16/20 06:48 Blood Blood Culture - Final 07/16/20 06:40 Blood Blood Culture - Final 07/16/20 10:58 Stool Stool Culture - Final 07/16/20 10:58 Stool - Final 07/16/20 08:46 Urine,Catheterized Urine Culture - Final Laboratory WBC 34.9 X10^3/uL (3.6-10.0) H* 07/24/20 06:41 RBC 3.59 X10^6/uL (3.5-5.4) 07/24/20 06:41 Hgb 10.8 g/dL (12.0-16.0) L 07/24/20 06:41 Hct 33.5 % (36.0-47.0) L 07/24/20 06:41 MCV 93.3 fL (80.0-100.0) 07/24/20 06:41 MCH 30.0 pg (27.0-34.0) 07/24/20 06:41 MCHC 32.2 g/dL (33.0-35.0) L 07/24/20 06:41 RDW 15.1 % (11.6-16.5) 07/24/20 06:41 Plt Count 173 X10^3/uL (150.0-450.0) 07/24/20 06:41 Plt Count Comment Adequate (ADEQUATE) 07/24/20 06:41 MPV 9.0 fL (7.4-11.0) 07/24/20 06:41 Neut % (Auto) 92.1 % (42.0-75.0) H 07/24/20 06:41 Lymph % (Auto) 4.4 % (21.0-51.0) L 07/24/20 06:41 [place] % (Auto) 3.2 % (0.0-13.0) 07/24/20 06:41 Eos % (Auto) 0.0 % (0.9-2.9) L 07/24/20 06:41 Baso % (Auto) 0.3 % (0.2-1.0) 07/24/20 06:41 Neut # (Auto) 32.1 x10^3/uL (2.2-4.8) H 07/24/20 06:41 Lymph # (Auto) 1.5 X10^3/uL (1.3-2.9) 07/24/20 06:41 [place] # (Auto) 1.1 x10^3/uL (0.3-0.8) H 07/24/20 06:41 Eos # (Auto) 0.0 x10^3/uL (0.0-0.2) 07/24/20 06:41 Baso # (Auto) 0.1 X10^3/uL (0.0-0.1) 07/24/20 06:41 Absolute Nucleated RBC 0.3 /100WBC 07/24/20 06:41 Total Counted 100 07/24/20 06:41 Neutrophils % (Manual) 94 % (39-76) H 07/24/20 06:41 Band Neutrophils % 3 % (0-10) 07/24/20 06:41 Lymphocytes % (Manual) Not Reportable 07/24/20 06:41 Monocytes % (Manual) 3 % (4-9) L 07/24/20 06:41 Basophils % (Manual) 1 % (0-1) 07/23/20 13:48 Plt Morphology Comment Normal (NORMAL) 07/24/20 06:41 RBC Morphology Normal (NORMAL) 07/24/20 06:41 Crenated Cell 1+ A 07/18/20 04:38 D-Dimer 1.76 ug/ml (0.0-0.57) H* 07/24/20 08:20 Sample Site Rb 07/22/20 12:46 ABG pH 7.460 (7.35-7.45) H 07/22/20 12:46 ABG pCO2 29.0 mmHg (35.0-45.0) L 07/22/20 12:46 ABG pO2 73.0 mmHg (80.0-100.0) L 07/22/20 12:46 ABG HCO3 20.6 mmol/L (22-26) L 07/22/20 12:46 ABG O2 Saturation 95.0 % (90-100) 07/22/20 12:46 ABG Base Excess -2.2 mmol/L (-2.0-2.0) L 07/22/20 12:46 Chris Test Na 07/22/20 12:46 A-a Gradient 40.0 mmHg 07/22/20 12:46 FiO2 21.0 07/22/20 12:46 Blood Gas Comments [facility] 07/22/20 12:46 Sodium 140 mmol/L (136-145) 07/24/20 06:41 Corrected Sodium 141 mmol/L (136-145) 07/24/20 06:41 Potassium 4.0 mmol/L (3.5-5.1) 07/24/20 06:41 Chloride 106 mmol/L (98-107) 07/24/20 06:41 Carbon Dioxide 20.9 mmol/L (21-32) L 07/24/20 06:41 BUN 33 mg/dL (7-18) H 07/24/20 06:41 Creatinine 0.83 mg/dL (0.55-1.02) 07/24/20 06:41 Est GFR (MDRD) Af Amer > 60 (>60) 07/24/20 06:41 Est GFR (MDRD) Non-Af > 60 (>60) 07/24/20 06:41 Glucose 143 mg/dL (65-99) H 07/24/20 06:41 Lactic Acid 1.4 mmol/L (0.4-2.0) 07/20/20 05:30 Calcium 8.0 mg/dL (8.5-10.1) L 07/24/20 06:41 Corrected Calcium 8.6 mg/dL (8.5-10.1) 07/24/20 06:41 Magnesium 2.2 mg/dL (1.7-2.9) 07/20/20 05:30 Ferritin 1361 ng/mL (8-252) H 07/20/20 05:30 Total Bilirubin 0.70 mg/dL (0.2-1.0) 07/24/20 06:41 AST 28 Units/L (15-37) 07/24/20 06:41 ALT 16 Units/L (12-78) 07/24/20 06:41 Alkaline Phosphatase 53 Units/L (46-116) 07/24/20 06:41 Creatine Kinase 57 Units/L (26-192) 07/16/20 06:48 CK-MB (CK-2) < 1.0 ng/mL (0-4.0) 07/16/20 06:48 CK/CKMB % Calc 1.8 % (<4) 07/16/20 06:48 Troponin I < 0.02 ng/mL (0-1.5) 07/16/20 06:48 C-Reactive Protein 2.80 mg/L (0-3.0) 07/24/20 06:41 B-Natriuretic Peptide 287 pg/mL (0-79) H 07/23/20 13:48 Total Protein 4.8 g/dL (6.4-8.2) L 07/24/20 06:41 Albumin 3.2 g/dL (3.4-5.0) L 07/24/20 06:41 Globulin 1.6 g/dL (2.5-4.5) L 07/24/20 06:41 Albumin/Globulin Ratio 2.0 Ratio (1.1-2.1) 07/24/20 06:41 Prealbumin 18.3 mg/dL (18-35.7) 07/23/20 13:48 Amylase 50 Units/L (25-115) 07/16/20 06:48 Amylase Cancelled 07/16/20 06:48 Lipase 108 Units/L (73-393) 07/16/20 06:48 Lipase Cancelled 07/16/20 06:48 Specimen Type Catherized urine 07/16/20 08:46 Urine Color Yellow (YELLOW) 07/16/20 08:46 Urine Appearance Clear (CLEAR) 07/16/20 08:46 Urine pH 6.0 (5.0 - 8.0) 07/16/20 08:46 Ur Specific [place] 1.015 (1.000-1.030) 07/16/20 08:46 Urine Protein 2+ (NEGATIVE) 07/16/20 08:46 Urine Glucose (UA) Negative (NEGATIVE) 07/16/20 08:46 Urine Ketones Negative (NEGATIVE) 07/16/20 08:46 Urine Occult Blood Negative (NEGATIVE) 07/16/20 08:46 Urine Nitrite Negative (NEGATIVE) 07/16/20 08:46 Urine Bilirubin Negative (NEGATIVE) 07/16/20 08:46 Urine Urobilinogen Normal (NORMAL) 07/16/20 08:46 Ur Leukocyte Esterase 1+ (NEGATIVE) 07/16/20 08:46 Urine RBC 0-2 /HPF (0-3) 07/16/20 08:46 Urine WBC 0-2 /HPF (0-5) 07/16/20 08:46 Ur Squamous Epith Cells Rare /HPF (NEGATIVE) 07/16/20 08:46 Amorphous Sediment Trace /HPF (NEGATIVE) 07/16/20 08:46 Urine Bacteria Trace /HPF (NEGATIVE) 07/16/20 08:46 Ur Culture Indicated? Yes/culture set up 07/16/20 08:46 Stool Description 15g unformed brown 07/16/20 10:58 Stool Description 15g unformed brown 07/16/20 10:58 Stl Occult Blood (IFOB) Positive (NEGATIVE) A 07/16/20 10:58 Stool for White Cells Positive (NEGATIVE) A 07/16/20 10:58 Stl C. diff Tox B Gene Positive (NEGATIVE) A 07/16/20 10:58 Stl C. diff 027-NAP1-BI Positive (NEGATIVE) A 07/16/20 10:58 Stool H. pylori Ag Negative (NEGATIVE) 07/16/20 10:58 C. difficile Toxin A&B Positive (NEGATIVE) A 07/16/20 10:58 Cryptosporid parvum Ag Negative (NEGATIVE) 07/16/20 10:58 Giardia lamblia Ag Negative (NEGATIVE) 07/16/20 10:58 SARS CoV-2 RNA Rapid JULIET Positive (NEGATIVE) A 07/16/20 06:02 - Plan (1) Bronchopneumonia Status: Acute Plan: NS AT 25 ML/HR, PROCAL AT 50 ML/HR, FLAGYL 500MG IV Q6H, VANCOMYCIN 250MG PO QID, LOMOTIL 1 TAB TID PRN, ALBUEROL NEBS QID, ASCORBIC ACID 1500MG IV Q6HR, TESSALON PERLES 200MG PO TID, TUSSIONEX SUSP 5ML PO Q12H PRN, PEPCID 20MG IV BID, ROBITUSSIN DM 10 ML PO QID, VSL 2 CAPS PO DAILY, MELATONIN 10MG PO HS, SOLU-MEDROL 80MG IV Q8H, MYLICON 40MG PO TID, ZOFRAN 4MG IV Q6H PRN, LOVENOX 40MG SC BID, ALBUMIN 25% IV DAILY, METOPROLOL 12.5MG PO BID, PROTONIX 40MG IV BID, PHENERGAN 12.5MG IM Q6H PRN, MAGIC MOUTHWASH QID, DIFLUCAN 100MG PO DAILY, PHENOBARBITAL 65MG IV Q8H PRN, AND ZINC SULFATE 220MG PO DAILY (2) COVID-19 virus infection Status: Acute (3) C. difficile diarrhea Status: Acute (4) Acute dehydration Status: Resolved (5) Generalized weakness Status: Acute (6) Abdominal pain Status: Acute Qualifiers: Abdominal location: generalized Qualified Code(s): R10.84 - Generalized abdominal pain Plan: OBTAIN ABDOMEN/PELVIS CT WITH CONTRAST
[2020-07-25] MEDS: TESSALON PERLES PO SCH ×3 (02:11→15:20)
[2020-07-25] MEDS: MYLICON TAB 80 MG CHEW PO SCH ×3 (02:13→15:20)
[2020-07-25] MEDS: MELATONIN PO SCH (02:14)
[2020-07-25] MEDS: MAGIC MOUTHWASH MT SCH ×4 (02:15→13:25)
[2020-07-25] MEDS: LOPRESSOR TAB 25 MG PO SCH ×2 (02:17→08:57)
[2020-07-25] MEDS: ASCORBIC ACID INJ MULTI-DOSE VIAL 1,500 MG in NS 50 ML IV 50 ML IV SCH ×3 (03:00→15:21)
[2020-07-25] MEDS: FLAGYL IV PREMIX 500 MG BAG 500 MG/100 ML BAG IV SCH ×3 (03:45→15:22)
[2020-07-25] MEDS: SOLU-Medrol 40 MG VIAL IVP SCH ×2 (06:00→15:20)
[2020-07-25 06:13] LABS: BASOPHILS % (AUTO) 0.2 % (0.2-1.0); HEMATOCRIT 33.1 % (36.0-47.0); LYMPHOCYTES % (AUTO) 3.6 % (21.0-51.0); MEAN CORPUSCULAR HGB CONC 33.3 g/dL (33.0-35.0); MEAN CORPUSCULAR VOLUME 93.2 fL (80.0-100.0); MEAN PLATELET VOLUME 8.9 fL (7.4-11.0); MONOCYTES # (AUTO) 0.6 x10^3/uL (0.3-0.8); MONOCYTES % (AUTO) 1.9 % (0.0-13.0); NEUTROPHILS # (AUTO) 27.6 x10^3/uL (2.2-4.8); NEUTROPHILS % (AUTO) 94.3 % (42.0-75.0); PLATELET COUNT 161 X10^3/uL (150.0-450.0); RED BLOOD COUNT 3.55 X10^6/uL (3.5-5.4); RED CELL DISTRIBUTION WIDTH 15.3 % (11.6-16.5); WHITE BLOOD COUNT 29.3 X10^3/uL (3.6-10.0)
[2020-07-25 06:34] LABS: ALANINE AMINOTRANSFERASE 16 Units/L (12-78); ALBUMIN 3.7 g/dL (3.4-5.0); ALKALINE PHOSPHATASE 57 Units/L (46-116); ASPARTATE AMINO TRANSFERASE 25 Units/L (15-37); BLOOD UREA NITROGEN 33 mg/dL (7-18); CALCIUM 8.3 mg/dL (8.5-10.1); CARBON DIOXIDE 25.5 mmol/L (21-32); CHLORIDE 107 mmol/L (98-107); COR NA(FOR HYPERGLY) 144 mmol/L (136-145); CREATININE 0.79 mg/dL (0.55-1.02); SODIUM 143 mmol/L (136-145); TOTAL PROTEIN 5.2 g/dL (6.4-8.2); eGFR NON BLACK RACES > 60 (>60)
[2020-07-25 07:32] LABS: BAND NEUTROPHILS % 3 % (0-10)
[2020-07-25 07:33] LABS: PLATELET MORPHOLOGY COMMENT NORMAL (NORMAL)
--- NOTE | 2020-07-25 07:34 | RAD ---
HISTORYSOBSTUDYCHEST, 1 VIEWCOMPARISONPortable chest July 24, 2020FINDINGSThe trachea is midline. The cardiac silhouette is unremarkable. A left sided PICC line is in place with the tip in good position in the superior vena cava. The multifocal infiltrates greatest in the right lung base also minimally in the right upper lobe left upper lobe and left lung base are stable compared to yesterdays film.. The bony thorax is unremarkable.IMPRESSIONStable multifocal infiltrates unchanged from yesterday's film.Left-sided PICC line is place in good positionElectronically signed by: RADHA JHAVERI (Jul 25, 2020 07:32:22)
--- NOTE | 2020-07-25 07:36 | RAD ---
Abdomen single viewIndication: Abdominal pain.COMPARISONPrevious day's radiographFINDINGSGas is distension of colonic loops has improved slightly. Tube projects over the pelvis, probably Jewell catheter. Spine curves to the left. There is no gross free air or pneumatosis.IMPRESSION: Perhaps slight improvement in the dilatation of the colon without gross free air. Continued follow-up recommended. Position limited study.Electronically signed by: TORI JEFFERSON (Jul 25, 2020 07:34:53)
[2020-07-25] MEDS: NS 1000 ML 1,000 ML IV SCH (08:04)
[2020-07-25] MEDS: COLACE CAP 100 MG PO SCH (08:55)
[2020-07-25] MEDS: ALBUMIN HUMAN 25%- 100 ML 100 ML IV SCH (08:55)
[2020-07-25] MEDS: DIFLUCAN PO SCH (08:56)
[2020-07-25] MEDS: LASIX IVP SCH (08:56)
[2020-07-25] MEDS: LOVENOX INJ 40 MG SYR SC SCH (08:57)
[2020-07-25] MEDS: ROBITUSSIN DM PO SCH ×2 (08:58→13:25)
[2020-07-25] MEDS: PROTONIX INJ 40 MG VIAL IVP SCH (08:58)
[2020-07-25] MEDS: VSL#3 PO SCH (08:59)
[2020-07-25] MEDS: ZINC SULFATE PO SCH (08:59)
[2020-07-25] MEDS: VITAMIN D3 125 mcg (5,000 UNITS) PO SCH (08:59)
[2020-07-25] MEDS: ACCUNEB 1.25 MG NEBULE NEB SCH (09:57)
[2020-07-25] MEDS: PEPCID 20 MG IV PREMIX* 20 MG/50 ML BAG IV SCH (11:18)
[2020-07-25 13:50] VITALS: BP 120/64
== END 2020-07-25 15:15 | disposition hospice, home (50) | DRG 177 ==
LOC: ER 05:33 → OBS 09:27 → MED/SURG 15:15
PROVIDERS: ADMIT Internal Medicine; ATTEND Internal Medicine
DX: R13.11 Dysphagia, oral phase; R53.1 Weakness; A04.72 Enterocolitis due to Clostridium difficile, not specified as recurrent; E86.0 Dehydration; R00.0 Tachycardia, unspecified; R26.89 Other abnormalities of gait and mobility; R79.82 Elevated C-reactive protein (CRP); Z87.440 Personal history of urinary (tract) infections; J44.9 Chronic obstructive pulmonary disease, unspecified; R06.02 Shortness of breath; U07.1 COVID-19; R79.89 Other specified abnormal findings of blood chemistry; R94.31 Abnormal electrocardiogram [ECG] [EKG]; R10.84 Generalized abdominal pain; J12.82 Pneumonia due to coronavirus disease 2019